=== PATIENT | female | born 1990 | race Caucasian/White ===

== ENCOUNTER 2019-11-15 09:00 | Outpatient (REF) | payer OTHER, SELFPAY ==
--- NOTE | 2019-11-15 | US_ITS ---
EXAMINATION: Echocardiography CLINICAL INFORMATION: 29-year-old at the 21.0 weeks of gestation Gestational diabetes diagnosed in first trimester COMPARISON: 11/01/2019 TECHNIQUE: Real-time transabdominal ultrasound was performed using C1-5 megahertz transducer. FINDINGS: There is a single, living, intrauterine in vertex position. The placenta lies transverse, left lateral. The amniotic fluid is within normal limits. MEASUREMENTS: 1. Biparietal Diameter: 5.1 cm; 21.5 wks 2. Occipital Frontal Diameter: 6.6 cm 3. Head Circumference: 19.0 cm; 21.2 wks 4. Abdominal Circumference: 16.2 cm; 21.2 wks 5. Femur Length: 3.4 cm; 20.4 wks 6. Heart Rate: 146 beats per minute GESTATIONAL AGE: 1. Assigned GA 21.0 wks 2. 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 Anomalous venous return ruled out. The four-chamber view showed equal sized ventricles and atria. The ventricular septum appeared intact and patent foramen ovale with right to left flow was seen. Tricuspid and mitral valves appear within normal limits as well as the pulmonary and aortic valves. The right outflow tract and in the left outflow tracts are of equal size and correct anatomic relationship. The myocardial contractility appeared within normal limits. No pericardial effusion is seen. IMPRESSION: 1. Normal, single, living, intrauterine with appropriate biometry. 2. Normal echocardiography. Discussion: I reviewed today's ultrasound findings and gave her reassurance. We discussed the limitations of ultrasound in diagnosing minor valvular problems, small VSD, ASD, and coarctation of aorta. After abnormal 1 hour glucose challenge (serum glucose greater than 200), she's been placed on GDM diet. Reports that that she is experiencing hypoglycemic episodes. Currently on no antihyperglycemic agents. I advised that she resume normal diet while monitoring her fingerstick glucose values. I reviewed the increased risk of congenital cardiac abnormalities, neural axis and kidneys in pregnancies with A1c above 6.5% around the time of the conception. Since she does not have a history of diabetes, I suspect the risk is not much higher than that of the general population. Unfortunately if her A1c level is not available. Suggest obtaining adequate hemoglobin A1c if not done already. Thank you for allowing me to participate in her care. Visiting time 25 minutes. Majority of this visit was spent reviewing and discussing her care.
== END 2019-11-15 09:01 | disposition home or self-care (01) ==
LOC: HO.US 09:00
PROVIDERS: PCP Internal Medicine; Visit Provider Obstetrics & Gynecology
DX: O24.410 Gestational diabetes mellitus in pregnancy, diet controlled (principal); Z3A.21 21 weeks gestation of pregnancy
CPT/HCPCS: 76825

== ENCOUNTER → 2019-11-18 08:15 | Outpatient (BNVA) | payer OTHER, SELFPAY | PROVIDERS: PCP Internal Medicine; Referring Provider Internal Medicine; Visit Provider Advanced Practice Midwife | DX: Z76.89 Persons encountering health services in other specified circumstances (principal) ==

== ENCOUNTER 2019-11-23 09:18 | Outpatient (REF) | payer OTHER, SELFPAY ==
[2019-11-23 11:39] LABS: Alanine Aminotransferase 9 U/L (0-31); Albumin Level 3.6 g/dL (3.5-5.0); Alkaline Phosphatase 49 U/L (39-117); Anion Gap 12 (12-20); Aspartate Amino Transferase 15 U/L (5-31); Bilirubin Total 1.2 mg/dL (0.0-1.0); Blood Urea Nitrogen 10 mg/dL (9-16); Calcium 8.4 mg/dL (8.4-10.2); Carbon Dioxide 24 mmol/L (22-29); Chloride 106 mmol/L (96-108); Estimated Glomerular Filt Rate > 60; Glucose Random 89 mg/dL (60-115); Potassium 3.9 mmol/l (3.3-5.1); Sodium 138 mmol/L (135-145); Total Protein 6.1 g/dL (6.5-8.0)
== END 2019-11-23 09:19 | disposition home or self-care (01) ==
LOC: HO.LAB 09:18
PROVIDERS: PCP Internal Medicine; Visit Provider Advanced Practice Midwife
DX: O26.899 Other specified pregnancy related conditions, unspecified trimester (principal); R51.9 Headache, unspecified
CPT/HCPCS: 80053

== ENCOUNTER 2019-12-02 13:09 | Outpatient (REF) | payer OTHER, SELFPAY ==
[2019-12-02 13:29] LABS: COVID-19 Test Negative (Negative)
== END 2019-12-02 13:10 | disposition home or self-care (01) ==
LOC: HO.LAB 13:09
PROVIDERS: PCP Internal Medicine; Visit Provider Internal Medicine
DX: Z20.828 Contact with and (suspected) exposure to other viral communicable diseases (principal)
CPT/HCPCS: 87635

== ENCOUNTER 2019-12-05 07:39 | Outpatient (REF) | payer OTHER, SELFPAY ==
[2019-12-05 08:28] LABS: COVID-19 Test Negative (Negative)
== END 2019-12-05 07:40 | disposition home or self-care (01) ==
LOC: HO.LAB 07:39
PROVIDERS: Visit Provider Internal Medicine
DX: Z20.828 Contact with and (suspected) exposure to other viral communicable diseases (principal)
CPT/HCPCS: 87635

== ENCOUNTER 2019-12-09 06:28 | Outpatient (REF) | payer OTHER, SELFPAY ==
[2019-12-09 07:24] LABS: COVID-19 Test Negative (Negative)
== END 2019-12-09 06:29 | disposition home or self-care (01) ==
LOC: HO.LAB 06:28
PROVIDERS: Visit Provider Internal Medicine
DX: Z20.828 Contact with and (suspected) exposure to other viral communicable diseases (principal)
CPT/HCPCS: 87635

== ENCOUNTER → 2019-12-16 15:28 | Outpatient (BNVA) | payer OTHER, SELFPAY | PROVIDERS: Visit Provider Advanced Practice Midwife | DX: Z76.89 Persons encountering health services in other specified circumstances (principal) ==

== ENCOUNTER → 2019-12-30 14:35 | Outpatient (BNVA) | payer OTHER, SELFPAY | PROVIDERS: Visit Provider Nurse Practitioner | DX: Z76.89 Persons encountering health services in other specified circumstances (principal) ==

== ENCOUNTER 2020-01-03 10:43 | Outpatient (REF) | payer OTHER, SELFPAY ==
[2020-01-03 11:44] LABS: Hematocrit 32.8 % (37-47); Hemoglobin 11.5 g/dl (12.0-16.0); Mean Corpuscular HGB Conc 35.1 g/dl (31.0-35.0); Mean Corpuscular Hemoglobin 31.9 pg (27.0-33.0); Mean Corpuscular Volume 91.1 fL (80-98); Mean Platelet Volume 10.4 fL (9.4-12.3); Platelet Count 158 X10*3/uL (160-400); Red Cell Distribution Width 13.2 % (11.0-16.0); White Blood Count 8.2 X10*3/uL (4.8-10.8)
[2020-01-03 12:01] LABS: Estimated Average Glucose 88 mg/dL; Hemoglobin A1c % 4.7 %
[2020-01-03 12:28] LABS: HIV AB/AG Nonreactive (Nonreactive)
[2020-01-03 12:35] LABS: Syphilis Screen Nonreactive (Nonreactive)
== END 2020-01-03 10:44 | disposition home or self-care (01) ==
LOC: HO.LAB 10:43
PROVIDERS: PCP Internal Medicine; Visit Provider Advanced Practice Midwife
DX: O24.419 Gestational diabetes mellitus in pregnancy, unspecified control (principal); Z34.92 Encounter for supervision of normal pregnancy, unspecified, second trimester
CPT/HCPCS: 36415; 83036; 85027; 86780; 86850; 87389

== ENCOUNTER → 2020-01-13 15:30 | Outpatient (BNVA) | payer OTHER, SELFPAY | PROVIDERS: PCP Internal Medicine; Visit Provider Advanced Practice Midwife | DX: Z76.89 Persons encountering health services in other specified circumstances (principal) ==

== ENCOUNTER 2020-01-16 08:41 | Outpatient (REF) | payer OTHER, SELFPAY ==
[2020-01-17 10:08] LABS: BV Int Neg Control Negative (Negative); BV Int Pos Control Positive (Positive)
== END 2020-01-16 08:42 | disposition home or self-care (01) ==
LOC: HO.LAB 08:41
PROVIDERS: Visit Provider Advanced Practice Midwife
DX: O26.899 Other specified pregnancy related conditions, unspecified trimester (principal); Z3A.29 29 weeks gestation of pregnancy; R10.2 Pelvic and perineal pain; R31.9 Hematuria, unspecified
CPT/HCPCS: 87086; 87480; 87510; 87660

== ENCOUNTER 2020-01-27 15:20 | Outpatient (REF) | payer OTHER, SELFPAY ==
[2020-01-27 18:17] LABS: Hematocrit 30.8 % (37-47); Hemoglobin 10.8 g/dl (12.0-16.0); Mean Corpuscular HGB Conc 35.1 g/dl (31.0-35.0); Mean Corpuscular Hemoglobin 31.3 pg (27.0-33.0); Mean Corpuscular Volume 89.3 fL (80-98); Mean Platelet Volume 10.8 fL (9.4-12.3); Platelet Count 196 X10*3/uL (160-400); Red Blood Count 3.45 X10*6/uL (4.20-5.50); Red Cell Distribution Width 13.2 % (11.0-16.0); White Blood Count 9.7 X10*3/uL (4.8-10.8)
[2020-01-27 18:18] LABS: Glucose Urine UA 100 MG/DL (NEG); Leukocyte Esterase Urine 1+ (NEG); Nitrite Urine NEG (NEG); Specific Gravity - Urine 1.015 (1.005-1.025); Urine Blood NEG (NEG); Urine Ketones 15 MG/DL (NEG); Urine Protein NEG (NEG-TRACE)
[2020-01-27 18:28] LABS: Appearance Urine HAZY; Bacteria Urine 2+ /LPF; Color Urine YELLOW; RBC Urine 0-2 /HPF (0); Squamous Epithelial Cell Urine 2+ /LPF
[2020-01-27 18:36] LABS: Alanine Aminotransferase 10 U/L (0-31); Aspartate Amino Transferase 16 U/L (5-31); Blood Urea Nitrogen 8 mg/dL (9-16)
[2020-01-27 19:57] LABS: Creatinine Urine 44.19 mg/dL; Total Protein Urine Random < 7 mg/dL (<12)
== END 2020-01-27 15:21 | disposition home or self-care (01) ==
LOC: HO.LAB 15:20
PROVIDERS: PCP Internal Medicine; Visit Provider Advanced Practice Midwife
DX: O21.9 Vomiting of pregnancy, unspecified (principal); Z34.80 Encounter for supervision of other normal pregnancy, unspecified trimester
CPT/HCPCS: 36415; 81001; 84156; 84450; 84460; 84520; 84550; 85027

== ENCOUNTER 2020-01-28 12:53 | Outpatient (REF) | payer OTHER, SELFPAY ==
[2020-01-28 13:14] LABS: COVID-19 Test Negative (Negative)
== END 2020-01-28 12:54 | disposition home or self-care (01) ==
LOC: HO.LAB 12:53
PROVIDERS: Visit Provider Internal Medicine
DX: Z20.828 Contact with and (suspected) exposure to other viral communicable diseases (principal)
CPT/HCPCS: 87635; C9803; U0003

== ENCOUNTER → 2020-02-10 15:46 | Outpatient (BNVA) | payer OTHER, SELFPAY | PROVIDERS: Visit Provider Obstetrics & Gynecology | DX: O09.93 Supervision of high risk pregnancy, unspecified, third trimester (principal); O24.419 Gestational diabetes mellitus in pregnancy, unspecified control | CPT/HCPCS: 81003; 99212 ==

== ENCOUNTER → 2020-02-24 15:44 | Outpatient (BNVA) | payer OTHER, SELFPAY | PROVIDERS: Visit Provider Advanced Practice Midwife | DX: Z34.80 Encounter for supervision of other normal pregnancy, unspecified trimester (principal) | CPT/HCPCS: 81003; 99212 ==

== ENCOUNTER 2020-02-28 08:29 | Outpatient (REF) | payer OTHER, SELFPAY ==
--- NOTE | 2020-02-28 08:34 | US_ITS ---
EXAMINATION: OBSTETRICAL ULTRASOUND, Follow up HISTORY: 29-year-old at the 36.0 weeks of gestation Size date discrepancy History of IUGR COMPARISON: 11/15/2019 TECHNIQUE: Real time transabdominal imaging with color and M-mode Doppler. PRESENTATION: Vertex PLACENTA LOCATION: Anterior without previa AMNIOTIC FLUID: BRAD 13.2 cm MEASUREMENTS: 1. Biparietal Diameter: 8.8 cm; 25.5 wks 2. Head Circumference: 32.1 cm; 36.2 wks 3. Abdominal Circumference: 32.6 cm; 36.4 wks 4. Femur Length: 6.7 cm; 34.4 wks 5. Heart Rate: 133 beats per minute WEIGHT: EFW: 2792 grams (6 lbs 2 oz) -- 48 %. BIOPHYSICAL PROFILE: Motion: 2 Tone: 2 Breathin Amniotic Fluid: 2 Total score: 8/8 GESTATIONAL AGE: 1. Established GA: 36.0 wks 2. GA from AUA: 35.6 wks ESTIMATED DATE OF DELIVERY: 1. Established LALI: 03/27/2020 2. LALI from AUA: 03/28/2020 US/US OB follow up IMPRESSION: 1. A single active fetus is in vertex presentation 2. Size equals dates 3. Reassuring biophysical profile I reassured her that the growth is appropriate and there is no suggestion of placental insufficiency or IUGR today's exam. We briefly discussed the limitations of ultrasound and estimating weights. Thank you very much for this referral.
== END 2020-02-28 08:30 | disposition home or self-care (01) ==
LOC: HO.US 08:29
PROVIDERS: Visit Provider Obstetrics & Gynecology
DX: O26.843 Uterine size-date discrepancy, third trimester (principal); Z3A.36 36 weeks gestation of pregnancy
CPT/HCPCS: 76816

== ENCOUNTER 2020-03-05 15:43 | Outpatient (REF) | payer OTHER, SELFPAY ==
[2020-03-07 13:26] LABS: C. trachomatis RNA TMA NOT DETECTED (NOT DETECTED); N. gonorrhoeae RNA TMA NOT DETECTED (NOT DETECTED)
== END 2020-03-05 15:44 | disposition home or self-care (01) ==
LOC: HO.LAB 15:43
PROVIDERS: Visit Provider Advanced Practice Midwife
DX: O09.893 Supervision of other high risk pregnancies, third trimester (principal); O99.613 Diseases of the digestive system complicating pregnancy, third trimester; K21.9 Gastro-esophageal reflux disease without esophagitis
CPT/HCPCS: 36415; 81003; 87081; 87491; 87591; 99212

== ENCOUNTER → 2020-03-06 13:38 | Outpatient (BNVA) | payer OTHER, SELFPAY | PROVIDERS: Visit Provider Obstetrics & Gynecology | DX: O26.899 Other specified pregnancy related conditions, unspecified trimester (principal); Z67.91 Unspecified blood type, Rh negative | CPT/HCPCS: 96372 ==

== ENCOUNTER → 2020-03-12 08:32 | Outpatient (BNVA) | payer OTHER, SELFPAY | PROVIDERS: Visit Provider Advanced Practice Midwife | DX: O26.899 Other specified pregnancy related conditions, unspecified trimester (principal); Z67.91 Unspecified blood type, Rh negative | CPT/HCPCS: 81003; 99212 ==

== ENCOUNTER → 2020-03-19 08:38 | Outpatient (BNVA) | payer OTHER, SELFPAY | PROVIDERS: Visit Provider Advanced Practice Midwife | DX: O24.410 Gestational diabetes mellitus in pregnancy, diet controlled (principal); O99.343 Other mental disorders complicating pregnancy, third trimester; F41.9 Anxiety disorder, unspecified; Z3A.38 38 weeks gestation of pregnancy; Z79.899 Other long term (current) drug therapy | CPT/HCPCS: 59025; 81003; 99212 ==

== ENCOUNTER 2020-03-19 10:21 | Outpatient (REF) | payer OTHER, SELFPAY ==
--- NOTE | ~2020-03-19 | US_ITS ---
EXAMINATION: US OBSTETRICAL FOLLOW UP WITH BIOPHYSICAL PROFILE CLINICAL INFORMATION: On reactive stress test. COMPARISON: Ultrasound OB 02/28/2020. TECHNIQUE: Real time transabdominal imaging with color and M-mode Doppler. POSITION: Cephalic. PLACENTA: Anterior, grade 2. AMNIOTIC FLUID INDEX: 11.82 cm. MEASUREMENTS: The initial dating ultrasound dated provided an estimated date of delivery of 03/27/2020. Base on today's ultrasound the LALI is 04/01/2020. biometric measurements are as follows: Biparietal Diameter: 9.14 cm (37 weeks 1 day) Occipital Frontal Diameter: 11.44 cm (39 weeks 3 days) Head Circumference: 33.86 cm (39 weeks and 0 days) Abdominal Circumference: 35.23 cm (39 weeks and 1 days) Femur Length: 7.24 cm (37 weeks and 1 days) The ultrasound gestational age based on today's measurements is 38 weeks 1 day. The standard deviation for the above measurements is +/- 3 weeks. ESTIMATED WEIGHT: The EFW is 3481 grams /(7 lbs 11 oz. This is at the 57 percentile. BIOPHYSICAL PROFILE: Biophysical profile is performed over 30 minutes with assessment of breathing, gross body movement, tone, and qualitative amniotic fluid volume. Each matrix is scored 0 or 2, depending if the metric is present. Maximum total score possible is 8. Motion: 2 Tone: 2 Breathin Amniotic Fluid: 2 Total score: 8 HR: 126 bpm US/US OB follow up IMPRESSION: 1. Single intrauterine gestation in cephalic position with anterior grade 2 placenta. 2. EFW: 3481 gm 3. BRAD: 11.82 cm. 4. BPP score: 8/8 (scale 0-8).
== END 2020-03-19 10:22 | disposition home or self-care (01) ==
LOC: HO.US 10:21
PROVIDERS: Visit Provider Advanced Practice Midwife
DX: O36.5990 Maternal care for other known or suspected poor fetal growth, unspecified trimester, not applicable or unspecified (principal)
CPT/HCPCS: 76816

== ENCOUNTER → 2020-03-20 10:25 | Outpatient (BNVA) | payer OTHER, SELFPAY | PROVIDERS: Visit Provider Advanced Practice Midwife | DX: Z34.80 Encounter for supervision of other normal pregnancy, unspecified trimester (principal) | CPT/HCPCS: 99212 ==

== ENCOUNTER → 2020-03-24 10:34 | Outpatient (BNVA) | payer OTHER, SELFPAY | PROVIDERS: Visit Provider Advanced Practice Midwife | DX: O47.9 False labor, unspecified (principal) | CPT/HCPCS: 99212 ==

== ENCOUNTER → 2020-03-25 13:26 | Outpatient (BNVA) | payer OTHER, SELFPAY | PROVIDERS: Visit Provider Advanced Practice Midwife | DX: O36.8390 Maternal care for abnormalities of the fetal heart rate or rhythm, unspecified trimester, not applicable or unspecified (principal); O36.8130 Decreased fetal movements, third trimester, not applicable or unspecified | CPT/HCPCS: 59025; 81003; 99212 ==

== ENCOUNTER 2020-03-25 14:52 | Outpatient (REF) | payer OTHER, SELFPAY ==
--- NOTE | ~2020-03-25 | US_ITS ---
EXAMINATION: US OBSTETRICAL (BIOPHYSICAL PROFILE) CLINICAL INFORMATION: Maternal care 4 abnormalities of heart. Evaluate growth COMPARISON: Ultrasound OB to 06/02/2020 TECHNIQUE: Ultrasound of the pelvis is performed. Biophysical profile is performed over 30 minutes with assessment of breathing, gross body movement, tone, and qualitative amniotic fluid volume. Each matrix is scored 0 or 2, depending if the metric is present. Maximum total score possible is 8. Examination is not intended to assess for anomalies. FINDINGS: POSITION: Cephalic PLACENTA: Anterior, grade 2 AMNIOTIC FLUID INDEX: 18.3 cm CARDIAC ACTIVITY: 136 beats per minute BIOPHYSICAL PROFILE: Motion: 2 Tone: 2 Breathin Amniotic Fluid: 2 Total score: 18.3 US/US OB biophysical profile IMPRESSION: 1. Single intrauterine gestation in cephalic position with anterior placenta. 2. Total biophysical score is 8 (scale 0-8). 3. Amniotic fluid index 18.3 cm. 4. cardiac activity 136 beats per minute.
== END 2020-03-25 14:53 | disposition home or self-care (01) ==
LOC: HO.US 14:52
PROVIDERS: PCP Internal Medicine; Visit Provider Advanced Practice Midwife
DX: O36.8190 Decreased fetal movements, unspecified trimester, not applicable or unspecified (principal); O36.8390 Maternal care for abnormalities of the fetal heart rate or rhythm, unspecified trimester, not applicable or unspecified
CPT/HCPCS: 76819

== ENCOUNTER 2020-04-12 17:17 | Emergency (ER) | payer OTHER, SELFPAY ==
--- NOTE | ~2020-04-12 | CT_ITS ---
EXAMINATION: CT ANGIOGRAM OF THE CHEST WITH AND WITHOUT CONTRAST (CT PULMONARY ANGIOGRAM FOR PE) CLINICAL INFORMATION: Shortness of breath. 2 weeks . COMPARISON: Chest x-ray 05/06/2019 TECHNIQUE: Prior to contrast administration, noncontrast localization images were obtained. Subsequently, multidetector volumetric imaging was performed from the thoracic inlet to below the diaphragms following the administration of 57 mL Omnipaque 350 intravenous contrast. No contrast reaction reported Sagittal, coronal, and MIP oblique sagittal reformatted images were obtained on the CT workstation, uploaded to PACS, and reviewed. The examination is mildly limited secondary to respiratory motion artifact. 1 mm subpleural nodule the right upper lobe (image [id number], series 6). This CT examination was performed using dose optimization techniques as appropriate, variously including the following: *Automated exposure control *Adjustment of mA and/or kV according to patient size (this includes techniques or standardized protocols for targeted exams where dose is matched to indication/reason for exam; i.e. extremities or head) *Use of iterative reconstruction technique Total exam dose-length product 206 mGy-cm FINDINGS: The heart is normal in size. There is no pericardial effusion. No pulmonary arterial filling defect to suggest pulmonary embolus. Nonaneurysmal thoracic aorta. No gross mediastinal lymphadenopathy. Central airways are patent. Lungs are well aerated. Mild dependent atelectasis. No lobar consolidation, pleural effusion or pneumothorax. Visualized portion of the upper abdomen are grossly unremarkable. No acute osseous abnormality. CT/CT angio chest PE protocol IMPRESSION: No pulmonary arterial filling defect to suggest pulmonary embolus. VTE: negative
[2020-04-12 17:21] VITALS: BP 139/88; PULSE 100; RESP 16; TEMP 36.5; O2SAT 98; BMI 24.7
[2020-04-12 17:40] VITALS: BP 119/74; PULSE 75; RESP 21; O2SAT 97
--- NOTE | 2020-04-12 17:54 | ECG_ITS ---
Test Reason : DIZZINESS Blood Pressure : / mmHG Vent. Rate : 074 BPM Atrial Rate : 074 BPM P-R Int : 146 ms QRS Dur : 090 ms QT Int : 366 ms P-R-T Axes : 071 022 023 degrees QTc Int : 406 ms Normal sinus rhythm with sinus arrhythmia Possible Left atrial enlargement Low voltage QRS Borderline ECG When compared with ECG of 06-MAY-2019 14:48, No significant change was found Referred By: Ralph An Electronically Signed By:CODIE DAVEY
--- NOTE | 2020-04-12 17:56 | ED_ITS ---
HPI - SOB/Dyspnea General Chief Complaint: Dizziness Stated Complaint: Dizziness Time Seen by Provider: 04/12/20 17:51 Source: patient Mode of arrival: ambulatory Limitations: no limitations History of Present Illness HPI Narrative: Patient full-term vaginal delivery on 03/25 was doing normal till last 3- 4 days when she started noticing increased shortness of breath no chest pain no cough no fever no 3rd to COVID patient feel weak and short of breath on mild exertion patient also did complaining of pain in the right arm MD elicited complaint: shortness of breath Onset (ago): day(s) (3-4) Related Data Home Medications Medication Instructions Recorded Confirmed albuterol sulfate 90 mcg/actuation INHALATION 11/18/19 11/18/19 aerosol inhaler blood sugar diagnostic #10 ea 11/18/19 11/18/19 blood-glucose meter #1 ea 11/18/19 11/18/19 fluoxetine 10 mg capsule 10 mg PO DAILY 11/18/19 11/18/19 lancets 28 gauge #100 ea 11/18/19 11/18/19 vitamin with calcium 1 tab PO DAILY 11/18/19 11/18/19 no.72-iron 27 mg-folic acid 1 mg tablet Previous Rx's Medication Instructions Recorded famotidine 20 mg tablet 20 mg PO BID #90 tab 12/30/19 Allergies Allergy/AdvReac Type Severity Reaction Status Date / Time No Known Allergies Allergy Verified 03/25/20 13:54 Review of Systems Review of Systems: Constitutional : No Weight loss, No Fever, No Chills ENT/Mouth : No sore throat, No Rhinorrhea Eyes: No Eye Pain, No Swelling Cardiovascular : No Chest Pain, no palpitations Respiratory : No Cough, No Sputum, + shortness of breath Gastrointestinal : no Nausea, No Vomiting, No Diarrhea, No abdominal Pain, no black stools Genitourinary : No Dysuria, No Urinary Frequency Musculoskeletal : No joint pain, No Myalgias, No Joint Swelling Skin : No Skin Lesions, No rash Neuro : No Weakness, No Numbness, + Dizziness, No Headache Psych : + Anxiety, No Depression Heme/Lymph: No Bruising, No Lymphadenopathy Endocrine : No Polyuria, No Polydipsia All other systems reviewed and are negative PMFSH Past Medical History Medical History Anxiety Asthma History of gestational diabetes Threatened labor at term Surgical History History of incision and drainage Hx of dilation and curettage Hx of wisdom tooth extraction Family History Family History Father Family hx-stroke History of esophageal cancer Mother Anxiety Maternal Grandmother Hx of congestive heart failure Hx of diabetes mellitus Maternal Grandfather Colon cancer Hx of diabetes mellitus Paternal Grandfather Cancer Social History Social History Household Members: Spouse and Children Alcohol intake: never Smoking Status: Never smoker Advance Directives: No Advance Directives Information Provided: Yes Gender identity: female Physical Exam Vital Signs: Vital Signs: Last Vital Signs Temp 97.7 F 04/12/20 17:21 Pulse 90 04/12/20 19:48 Resp 18 04/12/20 19:48 BP 134/91 H 04/12/20 19:48 Pulse Ox 97 04/12/20 19:48 Body Mass Index 24.7 Appearance: Alert. Oriented X3. No acute distress. Eyes: Pupils equal, round and reactive to light. ENT: Pharynx normal. Neck: Normal inspection. Neck supple. CVS: Normal heart rate and rhythm. Pulses normal. Respiratory: No respiratory distress. Breath sounds normal. Abdomen: Soft and nontender. Bowel sounds are present, no mass palpable, no CVA tenderness Skin: Skin warm and dry. Normal skin color. Normal skin turgor. Extremities: No lower extremity edema. No calf tenderness Neuro: Oriented X 3. No motor deficit. No sensory deficit. MDM - SOB/Dyspnea MDM Narrative Medical decision making narrative: Patient with shortness of breath clinically likely anxiety but will do CTA to rule out PE Patient's CTA is negative for PE patient is saturating 98% at room air will discharge patient home with diagnosis of anxiety Differential Diagnosis Differential diagnosis: Likely pulmonary embolism Medical Records Attestation: I reviewed the patient's medical records. Lab Data Attestation: I reviewed the patient's lab results. Result diagrams: 04/12/20 18:27 04/12/20 18:27 Labs: Lab Results 04/12/20 04/12/20 04/12/20 Range/Units 18:27 18:27 18:27 WBC 6.7 (4.8-10.8) X10*3/uL RBC 4.16 L D (4.20-5.50) X10*6/uL Hgb 12.2 (12.0-16.0) g/dl Hct 36.5 L (37-47) % MCV 87.7 (80-98) fL MCH 29.3 (27.0-33.0) pg MCHC 33.4 (31.0-35.0) g/dl RDW 13.3 (11.0-16.0) % Plt Count 265 D (160-400) X10*3/uL MPV 9.8 (9.4-12.3) fL Immature Gran % (Auto) 0.1 (0.0-0.4) % Neut % (Auto) 68.0 (45-73) % Lymph % (Auto) 23.6 (20-40) % Roosevelt % (Auto) 5.5 (2-11) % Eos % (Auto) 2.4 (0-4) % Baso % (Auto) 0.4 (0-2) % Lymph # (Auto) 1.6 (1.2-4.9) X10*3/uL Roosevelt # (Auto) 0.4 (0.1-1.2) X10*3/uL Eos # (Auto) 0.2 (0.0-0.4) X10*3/uL Baso # (Auto) 0.0 (0.0-0.2) X10*3/uL Abs Immat Gran (auto) 0.01 (0.00-0.03) X10*3/uL Absolute Neuts (auto) 4.6 (2.0-8.3) X10*3/uL Absolute Nucleated RBC 0.000 (0.0-0.012) X10*3/uL Nucleated RBC % (auto) 0.0 (0.0-0.2) /100WBC PT 11.5 (10.8-13.0) SEC INR 1.0 (0.9-1.1) Sodium 139 (135-145) mmol/L Potassium 3.9 (3.3-5.1) mmol/L Chloride 107 (96-108) mmol/L Carbon Dioxide 24 (22-29) mmol/L Anion Gap 12 (12-20) BUN 13 D (9-16) mg/dL Creatinine 0.75 (0.5-1.4) mg/dL Estim Creat Clear Calc 101.1 Estimated GFR > 60 Random Glucose 96 (60-115) mg/dL Calcium 8.9 (8.4-10.2) mg/dL COVID-19 ([facility]) (Negative) COVID-19 Clin Com 04/12/20 Range/Units 18:27 WBC (4.8-10.8) X10*3/uL RBC (4.20-5.50) X10*6/uL Hgb (12.0-16.0) g/dl Hct (37-47) % MCV (80-98) fL MCH (27.0-33.0) pg MCHC (31.0-35.0) g/dl RDW (11.0-16.0) % Plt Count (160-400) X10*3/uL MPV (9.4-12.3) fL Immature Gran % (Auto) (0.0-0.4) % Neut % (Auto) (45-73) % Lymph % (Auto) (20-40) % Roosevelt % (Auto) (2-11) % Eos % (Auto) (0-4) % Baso % (Auto) (0-2) % Lymph # (Auto) (1.2-4.9) X10*3/uL Roosevelt # (Auto) (0.1-1.2) X10*3/uL Eos # (Auto) (0.0-0.4) X10*3/uL Baso # (Auto) (0.0-0.2) X10*3/uL Abs Immat Gran (auto) (0.00-0.03) X10*3/uL Absolute Neuts (auto) (2.0-8.3) X10*3/uL Absolute Nucleated RBC (0.0-0.012) X10*3/uL Nucleated RBC % (auto) (0.0-0.2) /100WBC PT (10.8-13.0) SEC INR (0.9-1.1) Sodium (135-145) mmol/L Potassium (3.3-5.1) mmol/L Chloride (96-108) mmol/L Carbon Dioxide (22-29) mmol/L Anion Gap (12-20) BUN (9-16) mg/dL Creatinine (0.5-1.4) mg/dL Estim Creat Clear Calc Estimated GFR Random Glucose (60-115) mg/dL Calcium (8.4-10.2) mg/dL COVID-19 ([facility]) Negative (Negative) COVID-19 Clin Com See Note ECG Data Attestation: I personally reviewed and interpreted this ECG as follows: Interpretation: Normal sinus rhythm heart rate 74 beats per minute low-voltage QRS normal intervals normal axis no acute ST T wave changes no acute ischemia Discharge Plan Discharge Prescriptions: No Action famotidine [Pepcid] 20 mg tablet 20 mg PO BID Qty: 90 RF: 2 (DME) lancets 28 gauge misc See Rx Instructions ea topical QID Qty: 100 RF: 0 (DME) FreeStyle Lite Strips Strip See Rx Instructions ea Not Applicable QID Qty: 10 RF: 0 fluoxetine 10 mg capsule 10 mg PO DAILY RF: 0 (DME) blood-glucose meter Kit See Rx Instructions kit .ROUTE .MEDSUPPLY Qty: 1 RF: 0 albuterol sulfate 90 mcg/actuation HFA aerosol inhaler inhalation RF: 0 Plus (calcium carb) 27 mg iron- 1 mg tablet 1 tab PO DAILY RF: 0
[2020-04-12 18:32] LABS: MANUAL DIFF FLAG NO
[2020-04-12 18:38] LABS: Basophils Percent Auto 0.4 % (0-2); Eosinophils Absolute Auto 0.2 X10*3/uL (0.0-0.4); Eosinophils Percent Auto 2.4 % (0-4); Hematocrit 36.5 % (37-47); Hemoglobin 12.2 g/dl (12.0-16.0); Imm Gran Abs Auto 0.01 X10*3/uL (0.00-0.03); Imm Gran Pct Auto 0.1 % (0.0-0.4); Lymphocytes Absolute Auto 1.6 X10*3/uL (1.2-4.9); Lymphocytes Percent Auto 23.6 % (20-40); Mean Corpuscular HGB Conc 33.4 g/dl (31.0-35.0); Mean Corpuscular Hemoglobin 29.3 pg (27.0-33.0); Mean Corpuscular Volume 87.7 fL (80-98); Mean Platelet Volume 9.8 fL (9.4-12.3); Monocytes Absolute Auto 0.4 X10*3/uL (0.1-1.2); Monocytes Percent Auto 5.5 % (2-11); Neutrophils Absolute Auto 4.6 X10*3/uL (2.0-8.3); Platelet Count 265 X10*3/uL (160-400); Red Blood Count 4.16 X10*6/uL (4.20-5.50); Red Cell Distribution Width 13.3 % (11.0-16.0); White Blood Count 6.7 X10*3/uL (4.8-10.8)
[2020-04-12 18:47] LABS: Prothrombin Time 11.5 SEC (10.8-13.0)
[2020-04-12 18:57] LABS: Anion Gap 12 (12-20); Blood Urea Nitrogen 13 mg/dL (9-16); Calcium 8.9 mg/dL (8.4-10.2); Carbon Dioxide 24 mmol/L (22-29); Chloride 107 mmol/L (96-108); Creatinine Clr Calc Pharmacy 101.1; Estimated Glomerular Filt Rate > 60; Glucose Random 96 mg/dL (60-115); Potassium 3.9 mmol/L (3.3-5.1); Sodium 139 mmol/L (135-145)
[2020-04-12 19:32] LABS: COVID-19 Test Negative (Negative); IDNOW Serial# 9DD0AD1C
[2020-04-12] MEDS: iohexoL 350 MG/ML 100 ML INFUS..BTL IV (19:43)
[2020-04-12 19:48] VITALS: BP 134/91; PULSE 90; RESP 18; O2SAT 97
== END 2020-04-12 20:47 | disposition home or self-care (01) ==
PROVIDERS: Emergency Provider Internal Medicine; PCP Internal Medicine
DX: R42 Dizziness and giddiness (principal); R06.02 Shortness of breath; Z20.822 Contact with and (suspected) exposure to COVID-19; Z79.899 Other long term (current) drug therapy
CPT/HCPCS: 36415; 71275; 80048; 85025; 85610; 87635; 93005; 99284; Q9967

== ENCOUNTER 2020-05-06 14:25 | Outpatient (REF) | payer OTHER, SELFPAY ==
[2020-05-07 09:34] LABS: CT PCR NOT DETECTED (Not Detect.); NG PCR NOT DETECTED (Not Detect.)
== END 2020-05-06 14:26 | disposition home or self-care (01) ==
LOC: HO.LAB 14:25
PROVIDERS: PCP Internal Medicine; Visit Provider Advanced Practice Midwife
DX: O24.439 Gestational diabetes mellitus in the puerperium, unspecified control (principal); Z30.09 Encounter for other general counseling and advice on contraception; Z20.2 Contact with and (suspected) exposure to infections with a predominantly sexual mode of transmission
CPT/HCPCS: 87491; 87591

== ENCOUNTER → 2020-05-19 15:00 | Outpatient (BNVA) | payer OTHER, SELFPAY | PROVIDERS: PCP Internal Medicine; Visit Provider Nurse Practitioner ==

== ENCOUNTER → 2020-06-04 10:28 | Outpatient (BNVA) | payer OTHER, SELFPAY | PROVIDERS: PCP Internal Medicine; Visit Provider Nurse Practitioner ==

== ENCOUNTER → 2020-06-08 13:56 | Outpatient (BNVA) | payer OTHER, SELFPAY | PROVIDERS: PCP Internal Medicine; Visit Provider Obstetrics & Gynecology | DX: Z30.430 Encounter for insertion of intrauterine contraceptive device (principal) | CPT/HCPCS: 58300 ==

== ENCOUNTER 2020-07-09 13:14 | Emergency (ER) | payer OTHER, SELFPAY ==
--- NOTE | ~2020-07-09 | MR_ITS ---
MRI OF THE BRAIN WITHOUT IV CONTRAST INDICATION: Blurry vision and heaviness of the left side. COMPARISON: None available. TECHNIQUE: Multiplanar multisequence MR imaging of the brain was obtained without IV contrast. FINDINGS: There is no hydrocephalus, extra-axial surface collection, or herniation. No parenchymal signal abnormality. The major flow voids at the skull base are preserved. There is no acute infarct on diffusion-weighted imaging. There is no intracranial hemorrhage on the gradient recalled echo acquisition. The midline structures are normal. 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 The cerebellum and brainstem are normal. The craniocervical junction is normal. Osseous marrow signal intensity is homogenous. The visualized soft tissues are unremarkable. Small retention cysts within the inferior aspect of the left maxillary sinus. MR/MR head/brain wo con IMPRESSION: Unremarkable noncontrast MRI of the brain.
--- NOTE | ~2020-07-09 | CT_ITS ---
EXAMINATION: CT HEAD WITHOUT CONTRAST CLINICAL INFORMATION: Visual change with weakness COMPARISON: None TECHNIQUE: Contiguous axial imaging was performed from the skull base to vertex without intravenous administration of contrast. This CT examination was performed using dose optimization techniques as appropriate, variously including the following: *Automated exposure control *Adjustment of mA and/or kV according to patient size (this includes techniques or standardized protocols for targeted exams where dose is matched to indication/reason for exam; i.e. extremities or head) *Use of iterative reconstruction technique DLP: 614 mGy-cm FINDINGS: There is no evidence of acute intracranial hemorrhage or territorial infarction. No abnormal mass effect or midline shift is seen. Richardson to white matter differentiation is well preserved. No extra-axial fluid collections are identified. The ventricles are normal in size. There is no abnormal attenuation within the brain parenchyma. The osseous structures and soft tissues are normal. The mastoid air cells and visualized portions of the paranasal sinuses are well aerated. CT/CT head/brain wo con IMPRESSION: No acute intracranial pathology.
[2020-07-09 13:21] VITALS: BP 125/72; PULSE 99; RESP 18; O2SAT 97; BMI 23.9
--- NOTE | 2020-07-09 13:50 | ECG_ITS ---
Test Reason : DIZZINESS Blood Pressure : / mmHG Vent. Rate : 090 BPM Atrial Rate : 090 BPM P-R Int : 152 ms QRS Dur : 088 ms QT Int : 352 ms P-R-T Axes : 070 049 030 degrees QTc Int : 430 ms Normal sinus rhythm with sinus arrhythmia Normal ECG When compared with ECG of 12-APR-2020 17:36, No significant change was found Referred By: Charlotte Ladd Electronically Signed By:CODIE DAVEY
--- NOTE | 2020-07-09 13:57 | ED.GENADULT ---
HPI - General Adult General Chief complaint: General Medical Stated complaint: Dizziness Time Seen by Provider: 07/09/20 13:21 Source: patient Mode of arrival: ambulatory Limitations: no limitations History of Present Illness HPI narrative: 29-year-old female with a past medical history of anxiety here with episode of blurry vision which occurred at 07:00 this morning and lasted approximately 15 minutes and self-resolved. She felt no associated headache, weakness, numbness, tingling with this episode. She then went to work and had an episode where she felt very lightheaded and dizzy with some head pressure. She tells me she checked her blood pressure and she noted to be 140 systolic which is high for her. She also noted her pulse to be in the 120s which is also high for her. She then came to the emergency room to be evaluated. On arrival the patient tells me she feels like her left side of her body is heavy but denies any associated weakness, slurred speech, headache, visual changes, lightheadedness. Related Data Home Medications Medication Instructions Recorded Confirmed albuterol sulfate 90 mcg/actuation INHALATION 11/18/19 11/18/19 aerosol inhaler blood sugar diagnostic #10 ea 11/18/19 11/18/19 blood-glucose meter #1 ea 11/18/19 11/18/19 lancets 28 gauge #100 ea 11/18/19 11/18/19 vitamin with calcium 1 tab PO DAILY 11/18/19 11/18/19 no.72-iron 27 mg-folic acid 1 mg tablet Previous Rx's Medication Instructions Recorded famotidine 20 mg tablet 20 mg PO BID #90 tab 12/30/19 hydrocortisone 2.5 % topical cream 1 appl MS BID #30 g 05/19/20 with perineal applicator fluoxetine 10 mg capsule 10 mg PO DAILY 90 Days #90 cap 06/18/20 Allergies Allergy/AdvReac Type Severity Reaction Status Date / Time No Known Allergies Allergy Verified 06/04/20 10:29 Review of Systems Review of Systems: Yes all other systems are reviewed and are negative Constitutional: Constitutional: Reports no additional constitutional complaints, Denies body ache(s), Denies chills, Denies fever(s), Reports headache(s) (head pressure ) and Denies weakness Eyes: Eyes: Reports no additional eye complaints, Reports blurry vision and Denies change in vision ENT: Reports system reviewed and no additional complaints, except as documented, Reports dizziness, Reports headache(s) (head pressure ), Denies nasal congestion, Denies nasal discharge and Denies neck pain Cardiovascular: Cardiovascular: Reports no additional cardiovascular complaints, Denies chest pain, Denies leg edema and Denies dyspnea Respiratory: Respiratory: Reports no additional respiratory complaints, Denies cough and Denies dyspnea Gastrointestinal: Gastrointestinal: Reports no additional gastrointestinal complaints, Denies abdominal pain, Denies diarrhea, Denies nausea and Denies vomiting Genitourinary: Genitourinary: Reports no additional female genitourinary complaints and Denies urinary incontinence Musculoskeletal: Musculoskeletal: Reports no additional musculoskeletal complaints, Denies back pain, Denies arthralgias, Denies joint swelling, Denies neck pain, Denies numbness and Denies tingling Integumentary/Breasts: Skin/Breast: Reports system reviewed and no additional complaints, except as docu and Denies rash Neurologic: Reports system reviewed and no additional complaints, except as documented, Denies Abnormal speech present, Reports dizziness, Reports headache(s) (head pressure ), Denies numbness, Denies tingling and Denies weakness [facility] Past Medical History Attestation statement: The following information was validated with the patient. Source: old records reviewed and nursing notes reviewed Medical History Anxiety Asthma History of gestational diabetes Lactating mother Threatened labor at term Surgical History History of incision and drainage Hx of dilation and curettage Hx of wisdom tooth extraction Family History Family History Father Family hx-stroke History of esophageal cancer Mother Anxiety Maternal Grandmother Hx of congestive heart failure Hx of diabetes mellitus Maternal Grandfather Colon cancer Hx of diabetes mellitus Paternal Grandfather Cancer Social History Social History Household Members: Spouse and Children Alcohol intake: never Advance Directives: No Advance Directives Information Provided: No Patient : No Gender identity: female Physical Exam Vital Signs: Vital Signs: Last Vital Signs Pulse 99 05/27/21 13:21 Resp 18 07/09/20 13:21 BP 125/72 07/09/20 13:21 Pulse Ox 97 07/09/20 13:21 Body Mass Index 23.9 Const: General: cooperative, healthy appearing, comfortable and no acute distress Orientation/consciousness: patient oriented x3 Limitations: no limitations HENMT: Head: Yes normal to inspection Ears: hearing grossly normal bilaterally and TM's normal bilaterally General nose exam: Normal external nose present Face and sinus: Yes normal facial exam Mouth: Normal oral and palatal mucosa present Throat: Yes posterior oropharynx normal and Yes tonsils normal Eyes: Other: IOP right 19, IOP left 15 General: appearance normal, both eyes and all related structures Visual Rhodes: normal visual rhodes by confrontation Alignment and Position: alignment normal Periorbital: periorbital findings normal Eyelids: Yes eyelids normal Conjunctivae: conjunctivae normal Sclerae: sclerae normal Corneas: corneas normal Pupils: Equal, round and reactive pupils present EOM: EOMs intact bilaterally Direct Ophthalmoscopy: normal light reflex and no photophobia Neck: Neck: Yes normal visual inspection and Yes full ROM Chest: Chest palpation & inspection: normal inspection of the chest Resp: Effort & Inspection: normal respiratory effort Auscultation: clear to auscultation bilaterally Cardio: Rate: regular rate Rhythm: regular rhythm Peripheral pulses: Peripheral pulses 2+ throughout GI: Inspection: Yes normal to inspection Palpation (GI): Soft to palpation and nontender Auscultation: normal bowel sounds Back/Spine/Pelvis: Thoracic/Lumbar Spine: thoracic and lumbar spine normal to inspection Skin: General skin exam: no rashes or lesions noted Neuro: General: patient oriented x3, no focal motor deficits and normal sensation to monofilament Cranial nerves: Yes CN's II-XII intact bilaterally, Yes Equal, round and reactive pupils present, Yes Bilaterally intact EOM present, Yes Nystagmus not present, Yes Normal facial strength present and Yes Midline tongue present Cognition (Neuro): normal cognition Speech: No Abnormal speech present Gait exam (Neuro): Normal gait present Motor exam (neuro): 5/5 motor strength present throughout Sensory Exam: Normal double simultaneous stimulation for sensation Coordination: [id number] test normal and ykma-ic-gned test normal Extrem: General: Yes normal to inspection, Yes no pedal edema and Yes no calf tenderness NIH Stroke Scale Internal: Initial- Upon Arrival Level of Consciousness: Alert Level of Consciousness Questions: Answers both questions correctly Level of Consciousness Commands: Performs both tasks correctly Best Gaze: Normal Visual: No visual loss Facial Palsy: Normal Motor Arm (Right): No drift Motor Arm (Left): No drift Motor Leg (Right): No drift Motor Leg (Left): No drift Limb Ataxia: Absent Sensory: Normal Best Language: No aphasia Dysarthia: Normal Extinction and Inattention: No abnormality Score: 0 Course Course Course Narrative: 29-year-old female here status post episode of blurred vision which self resolved and then later an episode of dizziness described as lightheadedness with associated hypertension and tachycardia. Now complaining of feeling with the left side of her body is heavy but denies any weakness or paraesthesias or vision changes. Normal neurological exam. No overt deficits. Will check labs, UA, EKG, orthostatics and MRI brain. 1900-Labs unremarkable. Orthostatics mildly positive. Imaging negative. Re-assessed patient with no neurological changes or deficits noted. Normotensive and heart rate within normal limits. We discussed may be anxiety related as patient has history of same and we discussed how it can be difficult to determine anxiety symptoms from underlying medical issues. Recommended following up with PCP. Reviewed worrisome signs/symptoms with patient and when to return to ED. comfortable with discharge home. Medical Decision Making MDM Narrative Medical decision making narrative: Electrolyte abnormality, orthostatic hypotension, migraine, TIA Medical Records Medical records reviewed: Yes I reviewed the patient's medical records. Lab Data Lab results reviewed: Yes I reviewed the patient's lab results. Result diagrams: 07/09/20 14:11 07/09/20 14:11 Labs: Lab Results 07/09/20 07/09/20 07/09/20 Range/Units 14:11 14:11 14:11 WBC 6.1 (4.8-10.8) X10*3/uL RBC 4.69 (4.20-5.50) X10*6/uL Hgb 13.5 (12.0-16.0) g/dl Hct 39.6 (37-47) % MCV 84.4 (80-98) fL MCH 28.8 (27.0-33.0) pg MCHC 34.1 (31.0-35.0) g/dl RDW 13.5 (11.0-16.0) % Plt Count 229 (160-400) X10*3/uL MPV 10.1 (9.4-12.3) fL Immature Gran % (Auto) 0.2 (0.0-0.4) % Neut % (Auto) 67.1 (45-73) % Lymph % (Auto) 23.6 (20-40) % Grand % (Auto) 7.4 (2-11) % Eos % (Auto) 1.2 (0-4) % Baso % (Auto) 0.5 (0-2) % Lymph # (Auto) 1.4 (1.2-4.9) X10*3/uL Grand # (Auto) 0.5 (0.1-1.2) X10*3/uL Eos # (Auto) 0.1 (0.0-0.4) X10*3/uL Baso # (Auto) 0.0 (0.0-0.2) X10*3/uL Abs Immat Gran (auto) 0.01 (0.00-0.03) X10*3/uL Absolute Neuts (auto) 4.1 (2.0-8.3) X10*3/uL Absolute Nucleated RBC 0.000 (0.0-0.012) X10*3/uL Nucleated RBC % (auto) 0.0 (0.0-0.2) /100WBC PT 12.8 (10.8-13.0) SEC INR 1.1 (0.9-1.1) Sodium 140 (135-145) mmol/L Potassium 4.0 (3.3-5.1) mmol/L Chloride 107 (96-108) mmol/L Carbon Dioxide 24 (22-29) mmol/L Anion Gap 13 (12-20) BUN 20 H D (9-16) mg/dL Creatinine 0.78 (0.5-1.4) mg/dL Estim Creat Clear Calc 89.6 Estimated GFR > 60 POC Glucose (60-115) mg/dL Random Glucose 95 (60-115) mg/dL Calcium 9.6 D (8.4-10.2) mg/dL Magnesium 2.2 (1.6-2.6) mg/dL Total Bilirubin 1.6 H (0.0-1.0) mg/dL Direct Bilirubin 0.6 H (0.0-0.5) mg/dL AST 23 D (5-31) U/L ALT 22 (0-31) U/L Alkaline Phosphatase 96 D (39-117) U/L Total Protein 7.6 D (6.5-8.0) g/dL Albumin 4.6 D (3.5-5.0) g/dL Urine Color Urine Appearance Urine pH (5.0-8.0) Ur Specific [place] (1.005-1.025) Urine Protein (NEG-TRACE) MG/DL Urine Glucose (UA) (NEG) MG/DL Urine Ketones (NEG) MG/DL Urine Blood (NEG) Urine Nitrite (NEG) Ur Leukocyte Esterase (NEG) Urine RBC (0) /HPF Urine WBC (0-4) /HPF Ur Squamous Epith Cells /LPF Urine Bacteria /LPF Urine Mucus /LPF Urine Test (NEGATIVE) 07/09/20 07/09/20 07/09/20 Range/Units 14:37 15:23 15:23 WBC (4.8-10.8) X10*3/uL RBC (4.20-5.50) X10*6/uL Hgb (12.0-16.0) g/dl Hct (37-47) % MCV (80-98) fL MCH (27.0-33.0) pg MCHC (31.0-35.0) g/dl RDW (11.0-16.0) % Plt Count (160-400) X10*3/uL MPV (9.4-12.3) fL Immature Gran % (Auto) (0.0-0.4) % Neut % (Auto) (45-73) % Lymph % (Auto) (20-40) % Grand % (Auto) (2-11) % Eos % (Auto) (0-4) % Baso % (Auto) (0-2) % Lymph # (Auto) (1.2-4.9) X10*3/uL Grand # (Auto) (0.1-1.2) X10*3/uL Eos # (Auto) (0.0-0.4) X10*3/uL Baso # (Auto) (0.0-0.2) X10*3/uL Abs Immat Gran (auto) (0.00-0.03) X10*3/uL Absolute Neuts (auto) (2.0-8.3) X10*3/uL Absolute Nucleated RBC (0.0-0.012) X10*3/uL Nucleated RBC % (auto) (0.0-0.2) /100WBC PT (10.8-13.0) SEC INR (0.9-1.1) Sodium (135-145) mmol/L Potassium (3.3-5.1) mmol/L Chloride (96-108) mmol/L Carbon Dioxide (22-29) mmol/L Anion Gap (12-20) BUN (9-16) mg/dL Creatinine (0.5-1.4) mg/dL Estim Creat Clear Calc Estimated GFR POC Glucose 94 (60-115) mg/dL Random Glucose (60-115) mg/dL Calcium (8.4-10.2) mg/dL Magnesium (1.6-2.6) mg/dL Total Bilirubin (0.0-1.0) mg/dL Direct Bilirubin (0.0-0.5) mg/dL AST (5-31) U/L ALT (0-31) U/L Alkaline Phosphatase (39-117) U/L Total Protein (6.5-8.0) g/dL Albumin (3.5-5.0) g/dL Urine Color YELLOW Urine Appearance CLEAR Urine pH 6.0 (5.0-8.0) Ur Specific [place] 1.025 (1.005-1.025) Urine Protein NEG (NEG-TRACE) MG/DL Urine Glucose (UA) NEG (NEG) MG/DL Urine Ketones NEG (NEG) MG/DL Urine Blood 2+ H (NEG) Urine Nitrite NEG (NEG) Ur Leukocyte Esterase NEG (NEG) Urine RBC 0-2 (0) /HPF Urine WBC 0-2 (0-4) /HPF Ur Squamous Epith Cells 1+ /LPF Urine Bacteria 1+ /LPF Urine Mucus 1+ /LPF Urine Test NEGATIVE (NEGATIVE) Imaging Data CT scan - head: Attestation: I personally reviewed and interpreted this imaging study as follows: Radiologist's impression: EXAMINATION: CT HEAD WITHOUT CONTRAST CLINICAL INFORMATION: Weakness COMPARISON: CTA head and neck 03/07/2019, CT head noncontrast 08/08/2019 TECHNIQUE: Contiguous axial imaging was performed from the skull base to vertex without intravenous administration of contrast. Additional 2-D coronal and sagittal reformatted images are generated on the CT workstation and uploaded to PACS. This CT examination was performed using dose optimization techniques as appropriate, variously including the following: *Automated exposure control *Adjustment of mA and/or kV according to patient size (this includes techniques or standardized protocols for targeted exams where dose is matched to indication/reason for exam; i.e. extremities or head) *Use of iterative reconstruction technique DLP: 643 mGy-cm FINDINGS: There is no intracranial hemorrhage, hematoma, or extra-axial fluid collection. The ventricles are normal in size. There is no hydrocephalus, edema, or mass effect. There is periventricular white matter gliosis is again noted consistent with small vessel ischemic changes. There is no mass effect or edema. There is no visible acute territorial infarct or mass lesion. The calvarium appears intact. There is no pneumocephalus or orbital emphysema. The visualized sinuses and middle ears and mastoid air cells show no significant mucosal thickening. There are no air-fluid levels. CT/CT head/brain wo con IMPRESSION: No acute intracranial abnormality. MRI - head: Attestation: I personally reviewed and interpreted this imaging study as follows: Radiologist's impression: [address] [address] Resonance ReportSigned Patient: Elina Benites#: [id number]: 1990Acct:[id number]/Sex: M Date: 07/09/20Loc: [email or web address] Dr: Ordering Physician: VALENTIN OLEA NP Date of Service: 07/09/20 Procedure(s): MR head/brain wo con Accession Number(s): [id number] cc: VALENTIN LOEA NP~ MRI OF THE BRAIN WITHOUT IV CONTRAST INDICATION: Blurry vision and heaviness of the left side. COMPARISON: None available. TECHNIQUE: Multiplanar multisequence MR imaging of the brain was obtained without IV contrast. FINDINGS: There is no hydrocephalus, extra-axial surface collection, or herniation. No parenchymal signal abnormality. The major flow voids at the skull base are preserved. There is no acute infarct on diffusion-weighted imaging. There is no intracranial hemorrhage on the gradient recalled echo acquisition. The midline structures are normal. 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 The cerebellum and brainstem are normal. The craniocervical junction is normal. Osseous marrow signal intensity is homogenous. The visualized soft tissues are unremarkable. Small retention cysts within the inferior aspect of the left maxillary sinus. MR/MR head/brain wo con IMPRESSION: Unremarkable noncontrast MRI of the brain. ECG Data Attestation: I personally reviewed and interpreted this ECG as follows: Interpretation: NSR with SA with rate 90, normal pr, normal qrs, normal qtc Discharge Plan Discharge Clinical Impression: Dizziness Patient Disposition: Home, Self-Care Instructions: Lightheadedness (ED) Additional Instructions: Your ct scan, MRI looked normal Your heart rate did increase with position changes which can cause some lightheadeness. Increase fluids, change positions slowly. All other labs are unremarkable Follow-up with your PCP Prescriptions: No Action fluoxetine 10 mg capsule 10 mg PO DAILY 90 Days Qty: 90 RF: 0 famotidine [Pepcid] 20 mg tablet 20 mg PO BID Qty: 90 RF: 2 Mirena 20 mcg/24 hours (6 yrs) 52 mg intrauterine device 1 device intrauterine ONCE Qty: 1 RF: 0 (DME) lancets 28 gauge misc See Rx Instructions ea topical QID Qty: 100 RF: 0 (DME) FreeStyle Lite Strips Strip See Rx Instructions ea Not Applicable QID Qty: 10 RF: 0 (DME) blood-glucose meter Kit See Rx Instructions kit .ROUTE .MEDSUPPLY Qty: 1 RF: 0 albuterol sulfate 90 mcg/actuation HFA aerosol inhaler inhalation RF: 0 Plus (calcium carb) 27 mg iron- 1 mg tablet 1 tab PO DAILY RF: 0 hydrocortisone [Proctosol HC] 2.5 % cream with perineal applicator 1 appl MS BID Qty: 30 RF: 6 Referrals: Natsaha Simmons MD [Primary Care Provider] - 2 days Interventions: ED Discharge Assessment Last Done: 07/09/20 18:51 Discharge Date/Time: 07/09/20 18:52
[2020-07-09 14:27] LABS: MANUAL DIFF FLAG NO
[2020-07-09 14:28] LABS: Basophils Percent Auto 0.5 % (0-2); Eosinophils Absolute Auto 0.1 X10*3/uL (0.0-0.4); Eosinophils Percent Auto 1.2 % (0-4); Hematocrit 39.6 % (37-47); Hemoglobin 13.5 g/dl (12.0-16.0); Imm Gran Abs Auto 0.01 X10*3/uL (0.00-0.03); Imm Gran Pct Auto 0.2 % (0.0-0.4); Lymphocytes Absolute Auto 1.4 X10*3/uL (1.2-4.9); Lymphocytes Percent Auto 23.6 % (20-40); Mean Corpuscular HGB Conc 34.1 g/dl (31.0-35.0); Mean Corpuscular Hemoglobin 28.8 pg (27.0-33.0); Mean Corpuscular Volume 84.4 fL (80-98); Mean Platelet Volume 10.1 fL (9.4-12.3); Monocytes Absolute Auto 0.5 X10*3/uL (0.1-1.2); Monocytes Percent Auto 7.4 % (2-11); Neutrophils Absolute Auto 4.1 X10*3/uL (2.0-8.3); Neutrophils Percent Auto 67.1 % (45-73); Platelet Count 229 X10*3/uL (160-400); Red Blood Count 4.69 X10*6/uL (4.20-5.50); Red Cell Distribution Width 13.5 % (11.0-16.0); White Blood Count 6.1 X10*3/uL (4.8-10.8)
[2020-07-09 14:35] LABS: INTERNATIONAL NORM RATIO 1.1 (0.9-1.1); Prothrombin Time 12.8 SEC (10.8-13.0)
[2020-07-09 14:42] LABS: Glucose, Whole Blood 94 mg/dL (60-115)
[2020-07-09 14:55] LABS: Alanine Aminotransferase 22 U/L (0-31); Albumin Level 4.6 g/dL (3.5-5.0); Alkaline Phosphatase 96 U/L (39-117); Anion Gap 13 (12-20); Aspartate Amino Transferase 23 U/L (5-31); Bilirubin Direct 0.6 mg/dL (0.0-0.5); Bilirubin Total 1.6 mg/dL (0.0-1.0); Blood Urea Nitrogen 20 mg/dL (9-16); Calcium 9.6 mg/dL (8.4-10.2); Carbon Dioxide 24 mmol/L (22-29); Chloride 107 mmol/L (96-108); Creatinine Clr Calc Pharmacy 89.6; Estimated Glomerular Filt Rate > 60; Glucose Random 95 mg/dL (60-115); Magnesium 2.2 mg/dL (1.6-2.6); Sodium 140 mmol/L (135-145); Total Protein 7.6 g/dL (6.5-8.0)
[2020-07-09 15:36] LABS: Glucose Urine UA NEG (NEG); Leukocyte Esterase Urine NEG (NEG); Nitrite Urine NEG (NEG); Specific Gravity - Urine 1.025 (1.005-1.025); Urine Blood 2+ (NEG); Urine Ketones NEG (NEG); Urine Protein NEG (NEG-TRACE)
[2020-07-09 15:39] LABS: Appearance Urine CLEAR; Color Urine YELLOW
[2020-07-09 15:40] LABS: UPreg QC Valid YES; Urine Pregnancy NEGATIVE (NEGATIVE)
[2020-07-09 15:53] LABS: Bacteria Urine 1+ /LPF; RBC Urine 0-2 /HPF (0); Squamous Epithelial Cell Urine 1+ /LPF; WBC Urine 0-2 /HPF (0-4)
[2020-07-09 15:54] LABS: Mucus Urine 1+ /LPF
== END 2020-07-09 18:52 | disposition home or self-care (01) ==
PROVIDERS: Nurse Practitioner Family; Emergency Provider Emergency Medicine; PCP Internal Medicine
DX: R42 Dizziness and giddiness (principal); H53.8 Other visual disturbances; R00.0 Tachycardia, unspecified; Z79.899 Other long term (current) drug therapy
CPT/HCPCS: 36415; 70450; 70551; 80048; 80076; 81001; 81025; 82947; 83735; 85025; 85610; 93005; 99284

== ENCOUNTER → 2020-07-16 08:59 | Outpatient (BNVA) | payer OTHER, SELFPAY | PROVIDERS: Visit Provider Obstetrics & Gynecology ==

== ENCOUNTER → 2020-08-10 15:05 | Outpatient (BNVA) | payer SELFPAY | PROVIDERS: PCP Internal Medicine | DX: Z11.1 Encounter for screening for respiratory tuberculosis (principal) ==

== ENCOUNTER 2020-08-31 06:58 | Outpatient (REF) | payer OTHER, SELFPAY ==
[2020-08-31 08:46] LABS: Estimated Average Glucose 97 mg/dL
[2020-08-31 09:20] LABS: Alanine Aminotransferase 11 U/L (0-31); Albumin Level 4.4 g/dL (3.5-5.0); Alkaline Phosphatase 83 U/L (39-117); Anion Gap 12 (12-20); Aspartate Amino Transferase 17 U/L (5-31); Bilirubin Total 1.8 mg/dL (0.0-1.0); Blood Urea Nitrogen 19 mg/dL (9-16); Calcium 9.2 mg/dL (8.4-10.2); Carbon Dioxide 25 mmol/L (22-29); Chloride 106 mmol/L (96-108); Cholesterol 166 mg/dL; Estimated Glomerular Filt Rate > 60; Glucose Fasting 76 mg/dL (60-99); HDL Cholesterol 65 mg/dL; LDL Cholesterol Calculated 93 mg/dl; Potassium 4.4 mmol/L (3.3-5.1); Sodium 139 mmol/L (135-145); Total Protein 7.1 g/dL (6.5-8.0); Triglycerides 44 mg/dL
[2020-08-31 09:26] LABS: TSH reflex Free T4 1.82 uIU/mL (0.32-4.0)
== END 2020-08-31 06:59 | disposition home or self-care (01) ==
LOC: HO.LAB 06:58
PROVIDERS: PCP Internal Medicine; Visit Provider Internal Medicine
DX: Z00.01 Encounter for general adult medical examination with abnormal findings (principal); F41.9 Anxiety disorder, unspecified; R79.89 Other specified abnormal findings of blood chemistry; Z86.32 Personal history of gestational diabetes
CPT/HCPCS: 36415; 80053; 80061; 83036; 84443

== ENCOUNTER → 2020-09-04 08:36 | Outpatient (BNVA) | payer SELFPAY | PROVIDERS: PCP Internal Medicine | DX: Z11.1 Encounter for screening for respiratory tuberculosis (principal) ==

== ENCOUNTER → 2020-12-07 09:08 | Outpatient (BNVA) | payer SELFPAY | PROVIDERS: PCP Internal Medicine; Visit Provider Nurse Practitioner ==

== ENCOUNTER 2020-12-19 07:42 | Outpatient (REF) | payer OTHER, SELFPAY ==
[2020-12-19 08:35] LABS: Alanine Aminotransferase 11 U/L (0-31); Albumin Level 4.4 g/dL (3.5-5.0); Alkaline Phosphatase 96 U/L (39-117); Anion Gap 9 (12-20); Aspartate Amino Transferase 16 U/L (5-31); Bilirubin Direct 0.6 mg/dL (0.0-0.5); Bilirubin Total 1.7 mg/dL (0.0-1.0); Blood Urea Nitrogen 16 mg/dL (9-16); Calcium 9.1 mg/dL (8.4-10.2); Carbon Dioxide 28 mmol/L (22-29); Chloride 108 mmol/L (96-108); Estimated Glomerular Filt Rate > 60; Glucose Random 80 mg/dL (60-115); Potassium 4.2 mmol/L (3.3-5.1); Sodium 141 mmol/L (135-145)
== END 2020-12-19 07:43 | disposition home or self-care (01) ==
LOC: HO.LAB 07:42
PROVIDERS: PCP Internal Medicine; Visit Provider Nurse Practitioner
DX: R79.89 Other specified abnormal findings of blood chemistry (principal)
CPT/HCPCS: 36415; 80053; 82248

== ENCOUNTER → 2021-03-12 07:48 | Outpatient (BNVA) | payer OTHER, SELFPAY | PROVIDERS: PCP Internal Medicine; Visit Provider Nurse Practitioner ==

== ENCOUNTER 2021-03-19 07:14 | Outpatient (REF) | payer OTHER, SELFPAY ==
[2021-03-19 08:54] LABS: Alanine Aminotransferase 10 U/L (0-31); Albumin Level 4.5 g/dL (3.5-5.0); Alkaline Phosphatase 82 U/L (39-117); Aspartate Amino Transferase 15 U/L (5-31); Bilirubin Direct 0.6 mg/dL (0.0-0.5); Bilirubin Total 1.7 mg/dL (0.0-1.0); Gamma Glutamyl Transpeptidase 19 U/L (7-33); Lipase 35 U/L (8-78); Total Protein 7.3 g/dL (6.5-8.0)
[2021-03-19 09:05] LABS: Ferritin 25 ng/mL (10-122)
[2021-03-19 09:12] LABS: ~HepC Num1 0.35 S/CO (0.00-0.79); ~Hepatitis C Antibody Nonreactive (Nonreactive)
[2021-03-19 09:34] LABS: HBS Num1 3.62 mIU/mL (0-7.99); HBc Num1 0.13 S/CO (0.00-0.79); HBsAGNum1 0.28 S/CO (0.00-0.99); HIV AB/AG Nonreactive (Nonreactive); HIV Num 1 0.07 S/CO (0.00-0.99); Hepatitis A Antibody IgM 0.29 Index (0-0.79); Hepatitis B Core Antibody Nonreactive (Nonreactive); Hepatitis B Surface Antigen Negative (Negative); ~Hepatitis A Antibody IgM Nonreactive (Nonreactive); ~Hepatitis B Surface Antibody NONREACTIVE (Nonreactive)
[2021-03-20 11:57] LABS: Ceruloplasmin 32 mg/dL (18-53)
[2021-03-22 13:06] LABS: Alpha Fetoprotein 4.5 ng/mL
[2021-03-22 14:51] LABS: Anti Nuclear Antibody Screen NEGATIVE (NEGATIVE)
[2021-03-23 12:46] LABS: Mitochondrial Antibodies NEGATIVE (NEGATIVE)
[2021-03-24 23:28] LABS: Smooth Muscle Antibody <20 U (<20)
== END 2021-03-19 07:15 | disposition home or self-care (01) ==
LOC: HO.LAB 07:14
PROVIDERS: PCP Internal Medicine; Visit Provider Nurse Practitioner
DX: Z11.4 Encounter for screening for human immunodeficiency virus [HIV] (principal); R79.89 Other specified abnormal findings of blood chemistry
CPT/HCPCS: 36415; 80076; 82105; 82390; 82728; 82977; 83690; 86015; 86038; 86039; 86255; 86256; 86704; 86706; 86709; 86803; 87340; 87389

== ENCOUNTER 2021-04-01 15:05 | Outpatient (REF) | payer OTHER, SELFPAY | END 2021-04-01 15:06 | disposition home or self-care (01) | LOC: HO.LAB 15:05 | PROVIDERS: PCP Internal Medicine; Visit Provider Obstetrics & Gynecology | DX: Z01.419 Encounter for gynecological examination (general) (routine) without abnormal findings (principal) | CPT/HCPCS: 88142 ==

== ENCOUNTER 2021-05-24 08:01 | Outpatient (REF) | payer OTHER, SELFPAY ==
--- NOTE | ~2021-05-24 | US_ITS ---
EXAMINATION: US ABDOMEN COMPLETE CLINICAL INFORMATION: Other specific abnormal findings of blood chemistry. COMPARISON: Ultrasound abdomen 05/06/2019. TECHNIQUE: Real-time imaging of the abdominal viscera. FINDINGS: PANCREAS: The visualized portion of the pancreas head and body are normal, portion of the pancreatic body and tail, not visualized are obscured by bowel gas. ABDOMINAL AORTA: The proximal, mid, and distal segments are normal in caliber. INFERIOR VENA CAVA: Visualized portions are normal. LIVER: The liver is normal in size. The liver contour is normal. No focal hepatic lesion. There is no intrahepatic biliary duct dilatation seen. GALLBLADDER: Normal. The gallbladder is physiologically distended without evidence of stones, sludge, polyps, wall thickening or pericholecystic fluid. COMMON BILE DUCT: Normal in caliber measuring 0.3 cm in diameter. RIGHT KIDNEY: Normal. No hydronephrosis. No renal calculi or focal parenchymal lesions. The kidney measures 10.0 cm in maximum dimension. LEFT KIDNEY: Normal. No hydronephrosis. No renal calculi or focal parenchymal lesions. The kidney measures 10.4 cm in maximum dimension. SPLEEN: Enlarged The spleen measures 13.5 cm in maximum dimension. FREE FLUID: None. US/US abdomen complete IMPRESSION: *Splenomegaly, spleen measure up to 13.5 cm. *Ultrasound otherwise is normal.
== END 2021-05-24 08:02 | disposition home or self-care (01) ==
LOC: HO.US 08:01
PROVIDERS: PCP Internal Medicine; Visit Provider Nurse Practitioner
DX: R79.89 Other specified abnormal findings of blood chemistry (principal)
CPT/HCPCS: 76700

== ENCOUNTER → 2021-06-11 10:37 | Outpatient (BNVA) | payer OTHER, SELFPAY | PROVIDERS: PCP Internal Medicine; Referring Provider Internal Medicine; Visit Provider Nurse Practitioner | DX: Z13.89 Encounter for screening for other disorder (principal) ==

== ENCOUNTER 2021-12-21 06:53 | Outpatient (REF) | payer OTHER, SELFPAY ==
[2021-12-21 07:00] LABS: MANUAL DIFF FLAG NO
[2021-12-21 07:31] LABS: Basophils Percent Auto 0.8 % (0-2); Eosinophils Absolute Auto 0.1 X10*3/uL (0.0-0.4); Eosinophils Percent Auto 2.4 % (0-4); Hematocrit 42.5 % (37.0-47.0); Hemoglobin 14.6 g/dl (12.0-16.0); Imm Gran Abs Auto 0.01 X10*3/uL (0.00-0.03); Imm Gran Pct Auto 0.3 % (0.0-0.4); Lymphocytes Absolute Auto 1.4 X10*3/uL (1.2-4.9); Lymphocytes Percent Auto 36.5 % (20-40); Mean Corpuscular HGB Conc 34.4 g/dl (31.0-35.0); Mean Corpuscular Hemoglobin 30.7 pg (27.0-33.0); Mean Corpuscular Volume 89.5 fL (80.0-98.0); Mean Platelet Volume 10.2 fL (9.4-12.3); Monocytes Absolute Auto 0.3 X10*3/uL (0.1-1.2); Monocytes Percent Auto 8.6 % (2-11); Neutrophils Absolute Auto 1.9 x10*3/uL (2.0-8.3); Neutrophils Percent Auto 51.4 % (45-73); Platelet Count 218 X10*3/uL (160-400); Red Blood Count 4.75 X10*6/uL (4.20-5.50); Red Cell Distribution Width 12.5 % (11.0-16.0); White Blood Count 3.7 X10*3/uL (4.8-10.8)
[2021-12-21 11:16] LABS: Alanine Aminotransferase 13 U/L (0-31); Albumin Level 4.5 g/dL (3.5-5.0); Alkaline Phosphatase 67 U/L (39-117); Aspartate Amino Transferase 17 U/L (5-31); Bilirubin Direct 0.6 mg/dL (0.0-0.5); Bilirubin Total 1.8 mg/dL (0.0-1.0); Total Protein 7.2 g/dL (6.5-8.0)
== END 2021-12-21 06:54 | disposition home or self-care (01) ==
LOC: HO.LAB 06:53
PROVIDERS: Absent Provider Nurse Practitioner; PCP Internal Medicine; Visit Provider Internal Medicine
DX: Z00.01 Encounter for general adult medical examination with abnormal findings (principal); F41.1 Generalized anxiety disorder; R79.89 Other specified abnormal findings of blood chemistry
CPT/HCPCS: 36415; 80076; 82105; 85025

== ENCOUNTER 2022-02-03 08:38 | Outpatient (REF) | payer OTHER, SELFPAY ==
--- NOTE | ~2022-02-03 | US_ITS ---
EXAMINATION: US ABDOMEN LIMITED CLINICAL INFORMATION: Abnormal findings of blood chemistry. GERD. COMPARISON: Ultrasound abdomen complete 05/24/2021 and 05/06/2019. TECHNIQUE: Real-time imaging of the right upper quadrant abdominal viscera. FINDINGS: PANCREAS: Normal. LIVER: Normal. The liver is normal in size. The liver contour is normal. Parenchymal echogenicity is normal. No focal hepatic lesion. There is no intrahepatic biliary duct dilatation seen. GALLBLADDER: Gallbladder wall thickness is 0.37. The gallbladder is physiologically distended without evidence of stones, sludge, polyps, wall thickening or pericholecystic fluid. There is no tenderness in right upper quadrant. COMMON BILE DUCT: Normal in caliber measuring 0.4 cm in diameter. RIGHT KIDNEY: Normal. No hydronephrosis. No renal calculi or focal parenchymal lesions. The kidney measures 10.7 cm in maximum dimension. FREE FLUID: None. US/US abdomen limited IMPRESSION: Unremarkable limited abdomen ultrasound.
== END 2022-02-03 08:39 | disposition home or self-care (01) ==
LOC: HO.US 08:38
PROVIDERS: Visit Provider Nurse Practitioner
DX: R79.89 Other specified abnormal findings of blood chemistry (principal)
CPT/HCPCS: 76705

== ENCOUNTER 2022-02-24 11:47 | Outpatient (REF) | payer OTHER, SELFPAY ==
[2022-02-24 12:04] LABS: MANUAL DIFF FLAG NO
[2022-02-24 12:35] LABS: Basophils Percent Auto 0.6 % (0-2); Eosinophils Absolute Auto 0.1 X10*3/uL (0.0-0.4); Eosinophils Percent Auto 1.8 % (0-4); Hematocrit 40.6 % (37.0-47.0); Hemoglobin 14.4 g/dl (12.0-16.0); Imm Gran Abs Auto 0.02 X10*3/uL (0.00-0.03); Imm Gran Pct Auto 0.3 % (0.0-0.4); Lymphocytes Absolute Auto 1.7 X10*3/uL (1.2-4.9); Lymphocytes Percent Auto 27.7 % (20-40); Mean Corpuscular HGB Conc 35.5 g/dl (31.0-35.0); Mean Corpuscular Hemoglobin 31.2 pg (27.0-33.0); Mean Corpuscular Volume 88.1 fL (80.0-98.0); Mean Platelet Volume 10.2 fL (9.4-12.3); Monocytes Absolute Auto 0.4 X10*3/uL (0.1-1.2); Neutrophils Absolute Auto 3.9 x10*3/uL (2.0-8.3); Neutrophils Percent Auto 62.6 % (45-73); Platelet Count 288 X10*3/uL (160-400); Red Blood Count 4.61 X10*6/uL (4.20-5.50); Red Cell Distribution Width 12.1 % (11.0-16.0); White Blood Count 6.3 X10*3/uL (4.8-10.8)
[2022-02-24 13:16] LABS: Alanine Aminotransferase 14 U/L (0-31); Albumin Level 4.5 g/dL (3.5-5.0); Alkaline Phosphatase 71 U/L (39-117); Anion Gap 13 (12-20); Aspartate Amino Transferase 17 U/L (5-31); Bilirubin Total 1.9 mg/dL (0.0-1.0); Blood Urea Nitrogen 13 mg/dL (9-16); Calcium 9.2 mg/dL (8.4-10.2); Carbon Dioxide 22 mmol/L (22-29); Chloride 107 mmol/L (96-108); Estimated Glomerular Filt Rate > 60; Glucose Random 90 mg/dL (60-115); Potassium 4.3 mmol/L (3.3-5.1); Sodium 138 mmol/L (135-145); Total Protein 7.2 g/dL (6.5-8.0)
[2022-02-24 13:21] LABS: Thyroid Stimulating Hormone 1.54 uIU/mL (0.32-4.0); Vitamin D 25-OH Total 24.6 ng/mL (>30)
[2022-02-24 13:32] LABS: Folate 13.6 ng/mL (> or = 4.0); Vitamin B12 376 pg/mL (200-900)
== END 2022-02-24 11:48 | disposition home or self-care (01) ==
LOC: HO.LAB 11:47
PROVIDERS: PCP Internal Medicine; Visit Provider Social Worker
DX: G93.32 Myalgic encephalomyelitis/chronic fatigue syndrome (principal)
CPT/HCPCS: 36415; 80053; 82306; 82607; 82746; 84443; 85025

== ENCOUNTER 2022-03-03 09:43 | Outpatient (REF) | payer OTHER, SELFPAY ==
--- NOTE | ~2022-03-03 | XR_ITS ---
EXAMINATION: XR CERVICAL SPINE CLINICAL INFORMATION: Cervicalgia. COMPARISON: None TECHNIQUE: Frontal, odontoid and lateral views of the cervical spine were obtained. FINDINGS: There are no prevertebral soft tissue or bony abnormalities demonstrated. No compression fractures or subluxations are identified. Alignment is maintained at the atlanto-axial articulation. The disc spaces are preserved. No endplate changes are seen. The prevertebral soft tissues are normal. The foramina are patent. XR/XR cervical spine 2V IMPRESSION: Unremarkable examination.
== END 2022-03-03 09:44 | disposition home or self-care (01) ==
LOC: HO.XRAY 09:43
PROVIDERS: PCP Internal Medicine; Visit Provider Internal Medicine
DX: M54.2 Cervicalgia (principal)
CPT/HCPCS: 72040

== ENCOUNTER → 2022-06-21 12:26 | Outpatient (BNVA) | payer OTHER, SELFPAY | PROVIDERS: PCP Internal Medicine; Visit Provider Obstetrics & Gynecology ==

== ENCOUNTER 2022-07-21 13:56 | Outpatient (REF) | payer OTHER, SELFPAY ==
--- NOTE | ~2022-07-21 | MM_ITS ---
EXAMINATION: MM DIAGNOSTIC DIGITAL BREAST TOMOSYNTHESIS, BILATERAL US DIAGNOSTIC ULTRASOUND BREAST, RIGHT CLINICAL INFORMATION: 31-year-old with medial right breast mastodynia. No discharge or palpable abnormality. No known family history breast cancer. TC score 9%. COMPARISON: None (current study represents initial baseline exam). TECHNIQUE: Ultrasound right breast is initially performed and targeted to the area of clinical concern using grayscale imaging and color Doppler. Patient is able to point to the area at time of imaging. Digital breast tomosynthesis is performed following the ultrasound in both the craniocaudal and mediolateral oblique views along with computer-aided detection (CAD). Synthesized 2D images are generated from the tomosynthesis. Additional magnification left CC and magnification left ML views are obtained. FINDINGS: There are scattered areas of fibroglandular density (ACR BI-RADS breast composition Category b). There is no significant mass, architectural abnormality, or parenchymal asymmetric density. The axilla and skin contours are unremarkable. There is no skin thickening or coarsening of the Karri's ligaments. Left breast has grouped calcifications central 3:00 position approximately 6 cm from nipple, along the posterior nipple line. The additional magnification views demonstrate at least 10 heterogeneous calcifications of variable size grouped within an area of 2 x 4 mm in overall extent. Ultrasound right breast demonstrates no cystic or solid mass, architectural abnormality, or focal duct ectasia. No skin thickening or edema tracking in soft tissue planes. Results are discussed with the patient at time of visit. There is no mammographic or ultrasound correlate for patient's right medial breast mastodynia. This may be managed based on the clinical impression. The left breast calcifications are of unknown chronicity. Management options are discussed including tissue sampling with stereotactic biopsy as well as short interval serial mammography follow-up. MM/MM tomosynthesis diagnostic BI IMPRESSION: Left: -Grouped heterogeneous calcifications central 3:00 position. Right: -No mammographic evidence of malignancy or inflammatory changes. -Unremarkable targeted right breast ultrasound.. ASSESSMENT: BI-RADS 4: Suspicious (subcategory 4A: Low suspicion for malignancy) RECOMMENDATION: Left: -Consider stereotactic tissue sampling left breast calcifications. If biopsy is not performed, then short interval follow-up diagnostic mammography to include magnification views is recommended. Right: -Patient's right mastodynia should be managed based on the clinical impression.
== END 2022-07-21 13:57 | disposition home or self-care (01) ==
LOC: HO.MAMMO 13:56
PROVIDERS: PCP Internal Medicine; Visit Provider Obstetrics & Gynecology
DX: N64.4 Mastodynia (principal)
CPT/HCPCS: 76642; 77062; 77066

== ENCOUNTER → 2022-07-25 08:36 | Outpatient (BNVA) | payer OTHER, SELFPAY | PROVIDERS: PCP Internal Medicine; Visit Provider Obstetrics & Gynecology ==

== ENCOUNTER 2022-07-26 09:53 | Outpatient (REF) | payer OTHER, SELFPAY ==
--- NOTE | ~2022-07-26 | MM_ITS ---
EXAMINATION: STEREOTACTIC TOMOSYNTHESIS-GUIDED VACUUM-ASSISTED BREAST BIOPSY, LEFT SPECIMEN RADIOGRAPH, LEFT POST PROCEDURE DIGITAL MAMMOGRAM, LEFT CLINICAL INFORMATION: Grouped calcifications central 3:00 left breast near posterior nipple line for tissue sampling. COMPARISON: Mammography 07/21/2022 TECHNIQUE/PROCEDURE: At time of appointment, patient recalls prior history left breast incision and drainage. This may display in the calcifications, sequela from previous condition. Patient wishes to proceed with the tissue sampling. Informed consent was obtained from the patient after discussion of the benefits, risks, and alternatives to biopsy today. Patient appeared to understand. Gave opportunity for questions. Patient signed consent form. BIOPSY TABLE: [employer] Affirm Prone Biopsy System. LESION: Grouped heterogeneous calcifications central 3:00 left breast. LOCAL ANESTHESIA: 10 mL carbonated 1% lidocaine; 10 mL 1% lidocaine with epinephrine. DERMATOTOMY: Single skin nery dermatotomy performed. NEEDLE: [employer] Eviva 9-gauge vacuum assisted core biopsy device. APPROACH: lateral medial. TARGETING: Combination of digital breast tomosynthesis and stereotactic digital mammography used for targeting. CORES: 6. CLIP: [employer] Cylinder-shaped marker. SPECIMEN RADIOGRAPH: Specimen radiograph is taken in separate room using digital mammography. There are multiple tightly grouped heterogeneous coarse calcifications and one core consistent with the targeted area. POST PROCEDURE UNILATERAL DIGITAL MAMMOGRAM: The post biopsy mammogram is performed in separate room using separate digital mammography equipment from the biopsy procedure. CC and ML views are obtained. There are scattered areas of fibroglandular density (breast composition category: b). The clip marker is in position. The calcifications are markedly decreased at the biopsy site and no longer visualized with certainty. No gross hematoma. The patient tolerated the procedure well. No immediate complications. Home instructions reviewed with the patient. Final pathology results are pending. MM/MM stereotactic biopsy LT IMPRESSION: 1. Digital tomosynthesis-guided core biopsy left breast with clip placement. 2. Specimen radiograph taken and post procedure mammogram. There is satisfactory positioning of the biopsy clip. 3. Final pathology results pending. An addendum report will be issued.
[2022-07-26] MEDS: Sodium Bicarbonate 8.4% 50 MEQ/50 ML VIAL SUBCUT (11:18)
== END 2022-07-26 09:54 | disposition home or self-care (01) ==
LOC: HO.MAMMO 09:53
PROVIDERS: PCP Internal Medicine; Visit Provider Surgery
DX: R92.8 Other abnormal and inconclusive findings on diagnostic imaging of breast (principal)
CPT/HCPCS: 19081; 88305; A4648

== ENCOUNTER → 2022-07-27 13:37 | Outpatient (BNVA) | payer OTHER, SELFPAY | PROVIDERS: PCP Internal Medicine; Visit Provider Nurse Practitioner ==

== ENCOUNTER → 2022-08-02 09:13 | Outpatient (BNVA) | payer OTHER, SELFPAY | PROVIDERS: PCP Internal Medicine; Visit Provider Surgery ==

== ENCOUNTER 2022-08-23 11:29 | Outpatient (AMB) | payer OTHER, SELFPAY ==
--- NOTE | 2022-08-23 11:30 | A.OFFPC_ITS ---
Vital Signs 08/23/22 11:31 Height 5 ft 3 in Weight 141 lb 6 oz BMI 25.0 BP 124/72 Blood Pressure Location Lt brachial Position Sitting Pulse 77 Pulse Source Pulse Oximeter Pulse Oximetry (%) 99 Oxygen Delivery Method Room Air Intake Visit Reasons: pe Allergies No Known Allergies Allergy (Verified 08/23/22 11:34) Medication List - Last Reconciled 08/23/22 by Natasha Simmons MD levonorgestrel (Mirena) intrauterine lorazepam 0.5 mg PO DAILY PRN sertraline 50 mg PO DAILY Tobacco use date assessed: 08/23/22 Dental Screening Dental Screen Date: 08/23/22 Did you have a dental visit in the last 12 months?: Yes Did you have a dental problem in the last 6 months where you did not have access to dental care?: No Was dental information given to patient?: No HPI pe HPI Details PE Has OBGYN Psychiatric medications through Psychiatry Dr. Estrada Patient was evaluated for axillary boil in walk-in clinic last week and was prescribed doxycycline for 7 days She continued to have slight redness but that is on both sides. There is no pain , no lumps felt on examination I would recommend for her to wear loose cotton shirts that might help PFSH Medical History Anxiety Asthma History of gestational diabetes Lactating mother Threatened labor at term Surgical History History of incision and drainage Hx of dilation and curettage Hx of wisdom tooth extraction Family History Father Family hx-stroke History of esophageal cancer Mother Anxiety Maternal Grandmother Hx of congestive heart failure Hx of diabetes mellitus Maternal Grandfather Colon cancer Hx of diabetes mellitus Paternal Grandfather Cancer Sister Mental health disorder Maternal Aunt Substance use disorder Social History Household Members: Spouse and Children Housing: House Alcohol intake: never Patient Tobacco Use Status: Never used Tobacco e-Cigarette/Vaping Use: Never Used Second Hand Smoke Exposure: No service: No Current occupational status: employed Gender identity: Female Cognitive needs: No Hearing needs: No Vision needs: No Female Reproductive History Menstrual Age of Menarche: 16 Questionnaire Thrive Questionnaire Date Thrive assessed: 08/17/21 AUDIT C Alcohol Use Questionnaire (AUDIT-C) 1. How often do you have a drink containing alcohol?: Monthly or less 2. How many drinks containing alcohol do you have on a typical day when you are drinking?: 1 or 2 3. How often do you have six or more drinks on one occasion?: Never Total Score: 1 Score Reviewed/Action Taken: Yes HENOK-7 AMB Questionnaire HENOK-7 Date HENOK - 7 assessed: 08/17/21 Source: Developed by Drs. Americo Gong, Saloni Ordoñez, Constantino Pantoja and colleagues, with an educational cherry from [employer]. Review of Systems Const Denies chills, Denies fever(s) and Denies headache(s) Eyes Denies blurry vision ENT Denies headache(s), Denies nasal discharge, Denies nasal obstruction, Denies odynophagia and Denies sinus pain Card Denies chest pain at rest and Denies chest pain with activity Resp Denies cough and Denies hemoptysis GI Denies diarrhea, Denies odynophagia, Denies vomiting and Denies hematemesis Reports as per HPI Musc Denies abnormal gait Skin/Breast Reports as per HPI Neuro Denies Neuro-related abnormal movements, Denies Abnormal speech present, Denies abnormal gait, Denies headache(s) and Denies Sensory deficit (Neuro) Psych Denies mood swings and Denies paranoia Endo Reports as per HPI Danny/Lymph Reports as per HPI Aller/Immun Reports as per HPI Physical exam (Primary Care) Vital Signs: Last Vital Signs Pulse 77 08/23/22 11:31 BP 124/72 08/23/22 11:31 Pulse Ox 99 08/23/22 11:31 Oxygen Delivery Method Room Air 08/23/22 11:31 BMI result Body Mass Index 25.0 Tobacco/Smoking Status: Tobacco use Status Tobacco use date assessed 08/23/22 08/23/22 11:38 Patient Tobacco Use Status Never used Tobacco 08/23/22 11:33 e-Cigarette/Vaping Use Never Used 08/23/22 11:33 Thrive Assessment: Date of Thrive Assessment Date Thrive assessed 08/17/21 08/23/22 11:33 Const General: cooperative, comfortable and no acute distress Orientation/consciousness: patient oriented x3 HENMT Head: Yes normocephalic and Yes atraumatic Eyes General: appearance normal, both eyes and all related structures Pupils: Equal, round and reactive pupils present EOM: EOMs intact bilaterally Neck Neck: Yes supple and No lymphadenopathy Thyroid: Thyroid normal Lymphatic: no lymphadenopathy noted Resp Effort & Inspection: normal respiratory effort and able to speak in complete sentences Auscultation: clear to auscultation bilaterally Cardio Heart sounds: S1 normal heart sound present and S2 normal heart sound present GI Palpation (GI): Soft to palpation and nontender Auscultation: normal bowel sounds General: Yes no CVA tenderness Back/Spine/Pelvis Back: no CVA tenderness Skin Other: Slight redness axillary bilateral without any pain or lump General skin exam: elasticity normal and turgor normal Neuro General: patient oriented x3 and gait normal Cranial nerves: Yes Equal, round and reactive pupils present Speech: No Abnormal speech present Sensory Exam: No Sensory deficit (Neuro) Coordination: tandem gait normal and Romberg test negative Extrem General: Yes normal exam except as noted and No edema Assessment and Plan Assessment & Plan (1) Adult general medical exam: Code(s): Z. - Encounter for general adult medical examination without abnormal findings Plan PE Has OBGYN Psychiatric medications through Psychiatry Dr. Estrada Patient was evaluated for axillary boil in walk-in clinic last week and was prescribed doxycycline for 7 days She continued to have slight redness but that is on both sides. There is no pain , no lumps felt on examination I would recommend for her to wear loose cotton shirts that might help Orders: Orders Comprehensive [place]. Panel Fast Today Z. - Encounter for general adult medical examination without abnormal findings Lipid Panel Today Z. - Encounter for general adult medical examination without abnormal findings Complete Blood Count Auto Diff Today Z00. - Encounter for general adult medical examination without abnormal findings Coding Level of Care Code Est Pt Prev Care 18-39y(76689) Diagnoses Adult general medical exam Z00.
[2022-08-23 11:31] VITALS: BP 124/72; PULSE 77; O2SAT 99; BMI 25.0
== END 2022-08-23 12:00 | disposition home or self-care (01) ==
PROVIDERS: Visit Provider Internal Medicine
DX: Z00.00 Encounter for general adult medical examination without abnormal findings (principal)
CPT/HCPCS: 99395

== ENCOUNTER 2022-08-31 07:08 | Outpatient (REF) | payer OTHER, SELFPAY ==
[2022-08-31 07:19] LABS: MANUAL DIFF FLAG NO
[2022-08-31 07:58] LABS: Basophils Percent Auto 0.7 % (0-2); Eosinophils Absolute Auto 0.1 X10*3/uL (0.0-0.4); Eosinophils Percent Auto 1.8 % (0-4); Hematocrit 39.6 % (37.0-47.0); Hemoglobin 14.1 g/dl (12.0-16.0); Imm Gran Abs Auto 0.01 X10*3/uL (0.00-0.03); Imm Gran Pct Auto 0.2 % (0.0-0.4); Lymphocytes Absolute Auto 1.5 X10*3/uL (1.2-4.9); Mean Corpuscular HGB Conc 35.6 g/dl (31.0-35.0); Mean Corpuscular Hemoglobin 31.5 pg (27.0-33.0); Mean Corpuscular Volume 88.4 fL (80.0-98.0); Mean Platelet Volume 10.2 fL (9.4-12.3); Monocytes Absolute Auto 0.4 X10*3/uL (0.1-1.2); Monocytes Percent Auto 9.2 % (2-11); Neutrophils Absolute Auto 2.4 x10*3/uL (2.0-8.3); Neutrophils Percent Auto 54.1 % (45-73); Platelet Count 212 X10*3/uL (160-400); Red Blood Count 4.48 X10*6/uL (4.20-5.50); White Blood Count 4.4 X10*3/uL (4.8-10.8)
[2022-08-31 08:22] LABS: Alanine Aminotransferase 12 U/L (0-31); Albumin Level 4.3 g/dL (3.5-5.0); Alkaline Phosphatase 80 U/L (39-117); Anion Gap 12 (12-20); Aspartate Amino Transferase 15 U/L (5-31); Bilirubin Total 2.2 mg/dL (0.0-1.0); Blood Urea Nitrogen 11 mg/dL (9-16); Calcium 9.3 mg/dL (8.4-10.2); Carbon Dioxide 25 mmol/L (22-29); Chloride 106 mmol/L (96-108); Cholesterol 146 mg/dL; Estimated Glomerular Filt Rate > 60; Glucose Fasting 86 mg/dL (60-99); HDL Cholesterol 48 mg/dL; LDL Cholesterol Calculated 84 mg/dl; Potassium 3.8 mmol/L (3.3-5.1); Sodium 139 mmol/L (135-145); Triglycerides 74 mg/dL
== END 2022-08-31 07:09 | disposition home or self-care (01) ==
LOC: HO.LAB 07:08
PROVIDERS: PCP Internal Medicine; Visit Provider Internal Medicine
DX: Z00.00 Encounter for general adult medical examination without abnormal findings (principal)
CPT/HCPCS: 36415; 80053; 80061; 85025

== ENCOUNTER 2022-08-31 09:34 | Outpatient (AMB) | payer OTHER, SELFPAY ==
--- NOTE | 2022-08-31 10:04 | AM.OFFWIN_ITS ---
Intake Vital Signs 08/31/22 10:10 BP 118/74 Blood Pressure Location Lt brachial Position Sitting Pulse 60 Pulse Source Pulse Oximeter Temp 98.2 F Temp Source Temporal Artery Scan Pulse Oximetry (%) 98 Oxygen Delivery Method Room Air Intake Visit Reasons: EP very dry mouth [phone] Intake Note: Patient here for dry mouth for the past 5 days, she has been staying hydrated a nd drinking a lot of water. Patient Tobacco Use Status: Never used Tobacco Allergies No Known Allergies Allergy (Verified 08/31/22 10:05) Do you need a note to return to daycare/school/sports/work: No HPI EP very dry mouth [phone] HPI Details 31-year-old female patient presents today with two primary complaints. She reports new onset of dry mouth over the last week or so. She reports she has been well-hydrated and can't seem to keep her mouth moist. Her Zoloft dose was recently increased from 25mg to 50mg daily. No other med changes. She also reports over the last month or so having some shortness of breath with physical activity. She has not experienced this previously. Denies any chest pain or wheezing. This goes away with rest. No history of asthma. She had a PE with her PCP Dr. Simmons last week and had ordered labs done this morning. [facility] Medical History Anxiety Asthma History of gestational diabetes Lactating mother Threatened labor at term Surgical History History of incision and drainage Hx of dilation and curettage Hx of wisdom tooth extraction Family History Father Family hx-stroke History of esophageal cancer Mother Anxiety Maternal Grandmother Hx of congestive heart failure Hx of diabetes mellitus Maternal Grandfather Colon cancer Hx of diabetes mellitus Paternal Grandfather Cancer Sister Mental health disorder Maternal Aunt Substance use disorder Social History Household Members: Spouse and Children Housing: House Alcohol intake: never Patient Tobacco Use Status: Never used Tobacco e-Cigarette/Vaping Use: Never Used Second Hand Smoke Exposure: No service: No Current occupational status: employed Gender identity: Female Cognitive needs: No Hearing needs: No Vision needs: No Female Reproductive History Menstrual Age of Menarche: 16 Review of Systems Const All systems reviewed & are unremarkable except as noted in HPI and below Physical Exam Vital Signs: Last Vital Signs Temp 98.2 F 08/31/22 10:10 Pulse 60 08/31/22 10:10 BP 118/74 08/31/22 10:10 Pulse Ox 98 08/31/22 10:10 Oxygen Delivery Method Room Air 08/31/22 10:10 Const General: cooperative, healthy appearing, comfortable and no acute distress HEENT Mouth: Normal oral and palatal mucosa present and moist mucous membranes Teeth and gingiva: dentition normal Throat: Yes posterior oropharynx normal Neck Neck: Yes no lymphadenopathy Chest Chest palpation & inspection: normal inspection of the chest Resp Effort & Inspection: normal respiratory effort and able to speak in complete sentences Auscultation: clear to auscultation bilaterally Cardio Jugular venous distension: no JVD Palpation: normal PMI Rate: regular rate Rhythm: regular rhythm Skin General skin exam: no rashes or lesions noted Extrem General: Yes capillary refill normal and Yes no clubbing, cyanosis or edema Psych Appearance: grossly normal Mental Status: mental status grossly normal Speech and movement: Normal speech and movement present Assessment & Plan Assessment & Plan (1) Dry mouth: Code(s): R68.2 - Dry mouth, unspecified Plan: Oral exam is unremarkable. Her Zoloft dose was recently doubled. We discussed SSRI s/e of dry mouth is quite common, and this may likely be the reason for her symptoms. She has a f/u with psych provider in 1-2 weeks and will discuss this with them. I advised lozenges, gum, mints in the meantime to combat the dry mouth. (2) Shortness of breath on exertion: Code(s): R06.02 - Shortness of breath Plan: Patient reports some mild shortness of breath with exertion over the last month or so. She had a PE recently with PCP however did not discuss this at that time. No respiratory/asthma history. LS and heart sounds normal at this time. She had labs done this morning which were previously orderd by her PCP. These appear normal. I will order a CXR at this time and advised her to f/u with PCP. If she develops any increasing shortness of breath or other concerning symptoms she should return to the clinic or ED. She agrees to plan. Orders: Orders XR chest 2V Today R06.02 - Shortness of breath Coding Level of Care Code Est Pt Level 3 (32032) Diagnoses Dry mouth R68.2 Shortness of breath on exertion R06.02
[2022-08-31 10:10] VITALS: BP 118/74; PULSE 60; TEMP 36.8; O2SAT 98
== END 2022-08-31 10:47 | disposition home or self-care (01) ==
PROVIDERS: PCP Internal Medicine; Visit Provider Nurse Practitioner Family
DX: R68.2 Dry mouth, unspecified (principal); R06.02 Shortness of breath
CPT/HCPCS: 99213

== ENCOUNTER 2022-09-01 15:08 | Outpatient (REF) | payer OTHER, SELFPAY ==
--- NOTE | ~2022-09-01 | XR_ITS ---
EXAMINATION: XR CHEST CLINICAL INFORMATION: Shortness of breath. COMPARISON: 05/06/2019 TECHNIQUE: 2 views of the chest were obtained. FINDINGS: The lungs are well expanded. No focal consolidation. No pleural effusion. Cardiac silhouette is within normal limits. XR/XR chest 2V IMPRESSION: No acute abnormality.
== END 2022-09-01 15:09 | disposition home or self-care (01) ==
LOC: HO.XRAY 15:08
PROVIDERS: PCP Internal Medicine; Visit Provider Nurse Practitioner Family
DX: R06.02 Shortness of breath (principal)
CPT/HCPCS: 71046

== ENCOUNTER 2022-09-11 11:04 | Emergency (ER) | payer OTHER, SELFPAY ==
[2022-09-11 11:18] VITALS: BP 144/97; PULSE 99; RESP 18; TEMP 36.6; O2SAT 95; BMI 25.7
--- NOTE | 2022-09-11 11:23 | ED.SKABFB ---
HPI - Skin/Abscess/Foreign Bdy General Chief complaint: Skin/Abscess/Foreign Body Stated complaint: Abscess Time Seen by Provider: 09/11/22 11:25 Source: patient Mode of arrival: ambulatory Limitations: no limitations History of Present Illness HPI narrative: 31 yo female here with left axilla swelling/redness x several days. She reports a few weeks ago she had a similar area of swelling/redness and did a course of doxycycline which seemed to resolve the swelling/redness. No fevers, chills, Patient reports she has some irritation in the right axilla as well. She has tried to limit shaving, usage of deodorant. Related Data Home Medications Medication Instructions Recorded Confirmed levonorgestrel 21 mcg/24 hours (8 intrauterine 04/01/21 08/23/22 yrs) 52 mg intrauterine device (Mirena) lorazepam 0.5 mg tablet 0.5 mg PO DAILY PRN 07/27/22 08/23/22 sertraline 50 mg tablet 50 mg PO DAILY 07/27/22 08/23/22 Previous Rx's Medication Instructions Recorded sulfamethoxazole 800 1 tab PO BID #14 tabs 09/11/22 mg-trimethoprim 160 mg tablet (Bactrim DS) Allergies Allergy/AdvReac Type Severity Reaction Status Date / Time No Known Allergies Allergy Verified 09/11/22 11:25 Review of Systems Review of Systems: Yes all other systems are reviewed and are negative Constitutional: Constitutional: Reports no additional constitutional complaints, Denies chills and Denies fever(s) Cardiovascular: Cardiovascular: Denies chest pain and Denies dyspnea Respiratory: Respiratory: Reports no additional respiratory complaints and Denies dyspnea Integumentary/Breasts: Skin/Breast: Reports swelling, Reports erythema and Reports rash Neurologic: Reports system reviewed and no additional complaints, except as documented PMFSH Past Medical History Attestation statement: The following information was validated with the patient. Source: old records reviewed and nursing notes reviewed Medical History Anxiety Asthma History of gestational diabetes Lactating mother Threatened labor at term Surgical History History of incision and drainage Hx of dilation and curettage Hx of wisdom tooth extraction Family History Family History Father Family hx-stroke History of esophageal cancer Mother Anxiety Maternal Grandmother Hx of congestive heart failure Hx of diabetes mellitus Maternal Grandfather Colon cancer Hx of diabetes mellitus Paternal Grandfather Cancer Sister Mental health disorder Maternal Aunt Substance use disorder Social History Social History Household Members: Spouse and Children Housing: House Alcohol intake: never Patient Tobacco Use Status: Never used Tobacco e-Cigarette/Vaping Use: Never Used Second Hand Smoke Exposure: No Advance Directives: No Advance Directives Information Provided: Yes service: No Current occupational status: employed Gender identity: Female Cognitive needs: No Hearing needs: No Vision needs: No Physical Exam Vital Signs: Vital Signs: Last Vital Signs Temp 98 F 09/11/22 11:18 Pulse 99 09/11/22 11:18 Resp 18 09/11/22 11:18 BP 144/97 H 09/11/22 11:18 Pulse Ox 95 09/11/22 11:18 O2 Del Method Room Air 09/11/22 11:18 BMI result Body Mass Index 25.7 Const: General: cooperative, healthy appearing, comfortable and no acute distress Orientation/consciousness: patient oriented x3 Limitations: no limitations HEENT: Head: Yes normal to inspection Eyes: General: appearance normal, both eyes and all related structures Chest: Chest/axillae images: 1. Small abscess which is draining Surrounding irritation noted 2. +irritation noted Resp: Effort & Inspection: normal respiratory effort Back/Spine/Pelvis: Thoracic/Lumbar Spine: thoracic and lumbar spine normal to inspection Neuro: General: patient oriented x3 and moves all extremities Cognition (Neuro): normal cognition Gait exam (Neuro): Normal gait present Extrem: General: Yes normal to inspection Medical Decision Making Medical Decision Making MDM Narrative: 31 yo female here with irritation to bilateral axilla x several weeks, had abscess to left axilla which improved with doxycycline but now has returned. On exam has small abscess to left axilla which is draining spontaneously. No lymphadenopathy Patient nontoxic-afebrile, VSS Has irritation to bilateral axilla ?irritant dermatitis secondary to shaving/deodorant use Has h/o MRSA-will initiate course of bactrim x 7 days, recommend warm compresses Differential Diagnosis Differential Diagnoses: The differential diagnosis associated with the presentation includes abscess Prescription Management I considered prescription management with: Antibiotic Discharge Plan Discharge Clinical Impression: Abscess of axilla, left Patient Disposition: Home, Self-Care Instructions: Abscess (ED) Additional Instructions: Warm compresses or warm tea bags 4 times daily Take motrin/tylenol as needed Prescriptions: New sulfamethoxazole-trimethoprim [Bactrim DS] 800-160 mg tablet 1 tab PO BID Qty: 14 0RF No Action Mirena 20 mcg/24 hours (6 yrs) 52 mg intrauterine device 1 device intrauterine ONCE Qty: 1 0RF Mirena 20 mcg/24 hours (7 yrs) 52 mg intrauterine device intrauterine lorazepam 0.5 mg tablet 0.5 mg PO DAILY PRN sertraline 50 mg tablet 50 mg PO DAILY Referrals: Natasha Simmons MD [Primary Care Provider] - 1 week (as needed ) Interventions: ED Discharge Assessment Last Done: 09/11/22 11:39 Discharge Date/Time: 09/11/22 11:39
== END 2022-09-11 11:39 | disposition home or self-care (01) ==
PROVIDERS: Emergency Provider Student in an Organized Health Care Education/Training Program; PCP Internal Medicine
DX: L02.412 Cutaneous abscess of left axilla (principal); Z79.899 Other long term (current) drug therapy
CPT/HCPCS: 10060; 99282; 99284

== ENCOUNTER 2022-09-12 14:43 | Outpatient (AMB) | payer OTHER, SELFPAY ==
--- NOTE | 2022-09-12 14:45 | MHC.OFFVIS ---
Intake Vital Signs 09/12/22 14:49 Height 5 ft 3 in Weight 142 lb BMI 25.2 BP 127/74 Blood Pressure Location Rt brachial Position Sitting Pulse 88 Intake Visit Reasons: Left breast pain Intake Note: Patient c/o Lt breast pain X4-5days. Reports pain is under breast bx incision. Was diagnosed with Lt axilla abscess at the beginning of August. Was prescribed a round Doxy. Abscess did not clear. Currently on Bactrim for abscees. 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 The former began a few days ago and has been given antibiotics. Because of history of MRSA, patient was prescribed Bactrim. This carpal Marmolejo spontaneously drained yesterday. Breast pain is been over the last 1-2 days. His left breast only. She has had a nonspecific left breast complaints and extensive workup for this in the past polyp which has been negative. Patient is well-known to me. Chart was reviewed patient evaluated [facility] Medical History Anxiety Asthma History of gestational diabetes Lactating mother Threatened labor at term Surgical History History of incision and drainage Hx of dilation and curettage Hx of wisdom tooth extraction Family History Father Family hx-stroke History of esophageal cancer Mother Anxiety Maternal Grandmother Hx of congestive heart failure Hx of diabetes mellitus Maternal Grandfather Colon cancer Hx of diabetes mellitus Paternal Grandfather Cancer Sister Mental health disorder Maternal Aunt Substance use disorder Social History Household Members: Spouse and Children Housing: House Alcohol intake: never Patient Tobacco Use Status: Never used Tobacco e-Cigarette/Vaping Use: Never Used Second Hand Smoke Exposure: No service: No Current occupational status: employed Gender identity: Female Cognitive needs: No Hearing needs: No Vision needs: No Female Reproductive History Menstrual Age of Menarche: 16 Physical Exam Vital Signs: Last Vital Signs Pulse 88 09/12/22 14:49 BP 127/74 09/12/22 14:49 BMI result Body Mass Index 25.2 Chest Other: Patient has a resolving carbuncle left axilla with few associated the surrounding pupils. No obvious abscess. No periclavicular axillary adenopathy. Bilateral breast exam demonstrates no obvious mass discharge adenopathy or skin changes bilaterally. Assessment & Plan Assessment & Plan (1) Carbuncle and furuncle: Code(s): L02.92 - Furuncle, unspecified; L02.93 - Carbuncle, unspecified Plan The present time, patient will be treated conservatively. She should complete her antibiotic course, apply warm compresses the axilla, and will follow-up at the other week should her symptoms fail to improve or progress. All questions were answered. Coding Level of Care Code Est Pt Level 3 (54805) Diagnoses Carbuncle and furuncle L02.92; L02.93
[2022-09-12 14:49] VITALS: BP 127/74; PULSE 88; BMI 25.2
== END 2022-09-12 15:22 | disposition home or self-care (01) ==
PROVIDERS: PCP Internal Medicine; Referring Provider Obstetrics & Gynecology; Visit Provider Surgery
DX: L02.92 Furuncle, unspecified (principal); L02.93 Carbuncle, unspecified
CPT/HCPCS: 99213

== ENCOUNTER → 2022-09-12 14:43 | Outpatient (BNVA) | payer OTHER, SELFPAY | PROVIDERS: PCP Internal Medicine; Referring Provider Obstetrics & Gynecology; Visit Provider Surgery ==

== ENCOUNTER 2022-10-03 11:44 | Outpatient (AMB) | payer OTHER, SELFPAY ==
--- NOTE | 2022-10-03 11:52 | A.OFFVIS_ITS ---
Intake Intake Visit Reasons: Left breast pain and redness, s/p breast bx Intake Note: Patient is seen in office for follow up visit, following left breast pain and redness, post breast bx. 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 Patient has had history of breast abscess requiring incision and drainage in the past. [facility] Medical History Anxiety Asthma History of gestational diabetes Lactating mother Threatened labor at term Surgical History History of incision and drainage Hx of dilation and curettage Hx of wisdom tooth extraction Family History Father Family hx-stroke History of esophageal cancer Mother Anxiety Maternal Grandmother Hx of congestive heart failure Hx of diabetes mellitus Maternal Grandfather Colon cancer Hx of diabetes mellitus Paternal Grandfather Cancer Sister Mental health disorder Maternal Aunt Substance use disorder Social History Household Members: Spouse and Children Housing: House Alcohol intake: never Patient Tobacco Use Status: Never used Tobacco e-Cigarette/Vaping Use: Never Used Second Hand Smoke Exposure: No service: No Current occupational status: employed Gender identity: Female Cognitive needs: No Hearing needs: No Vision needs: No Female Reproductive History Menstrual Age of Menarche: 16 Physical Exam Chest Other: Right breast within normal limits. Left breast demonstrates some superficial cellulitis extending from the 2 o'clock position to the areolar at 12:00 o'clock. No obvious fluctuance or abscess. Assessment & Plan Assessment & Plan (1) Cellulitis: Code(s): L03.90 - Cellulitis, unspecified Plan The superficial cellulitic area was encircled with a marking pen. Patient has been given a script for antibiotics ( Bactrim) with her history of MRSA. Also warm compresses to the area several times a day. Patient has been scheduled to see me a few days time or p.r.n. should the process extended beyond the marking. Medications: New sulfamethoxazole-trimethoprim 400-80 mg (Bactrim) 1 tab PO BID 20 tabs 0RF Coding Level of Care Code Est Pt Level 3 (13594) Diagnoses Cellulitis L03.90
== END 2022-10-03 12:12 | disposition home or self-care (01) ==
PROVIDERS: PCP Internal Medicine; Visit Provider Surgery
DX: L03.90 Cellulitis, unspecified (principal)
CPT/HCPCS: 99213

== ENCOUNTER → 2022-10-03 11:44 | Outpatient (BNVA) | payer OTHER, SELFPAY | PROVIDERS: PCP Internal Medicine; Visit Provider Surgery ==

== ENCOUNTER 2022-10-10 11:42 | Outpatient (AMB) | payer OTHER, SELFPAY ==
--- NOTE | 2022-10-10 11:46 | MHC.OFFVIS ---
Intake Vital Signs 10/10/22 11:47 Height 5 ft 3 in Weight 139 lb BMI 24.6 BP 119/78 Blood Pressure Location Rt brachial Position Sitting Pulse 80 Intake Visit Reasons: Left breast pain and redness, s/p breast bx Intake Note: Patient here to f/u Lt breast pain. Reports no changes. Denies pain, redness, rash, itch on breasts. Lt breast bx incisions healed well. 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 She has a marked improvement of left breast symptoms. Redness has resolved. She still has a feeling of fullness there. [facility] Medical History Anxiety Asthma History of gestational diabetes Lactating mother Threatened labor at term Surgical History History of incision and drainage Hx of dilation and curettage Hx of wisdom tooth extraction Family History Father Family hx-stroke History of esophageal cancer Mother Anxiety Maternal Grandmother Hx of congestive heart failure Hx of diabetes mellitus Maternal Grandfather Colon cancer Hx of diabetes mellitus Paternal Grandfather Cancer Sister Mental health disorder Maternal Aunt Substance use disorder Social History Household Members: Spouse and Children Housing: House Alcohol intake: never Patient Tobacco Use Status: Never used Tobacco e-Cigarette/Vaping Use: Never Used Second Hand Smoke Exposure: No service: No Current occupational status: employed Gender identity: Female Cognitive needs: No Hearing needs: No Vision needs: No Female Reproductive History Menstrual Age of Menarche: 16 Physical Exam Vital Signs: Last Vital Signs Pulse 80 10/10/22 11:47 BP 119/78 10/10/22 11:47 BMI result Body Mass Index 24.6 Chest Other: Complete resolution of left breast cellulitis. No evidence of any fluctuance or abscess. Exam otherwise benign. Assessment & Plan Assessment & Plan (1) Cellulitis: Code(s): L03.90 - Cellulitis, unspecified Plan Patient has been given local instructions, and will follow-up p.r.n.. Coding Level of Care Code Est Pt Level 4 (88650) Diagnoses Cellulitis L03.90
[2022-10-10 11:47] VITALS: BP 119/78; PULSE 80; BMI 24.6
== END 2022-10-10 12:00 | disposition home or self-care (01) ==
PROVIDERS: PCP Internal Medicine; Visit Provider Surgery
DX: L03.90 Cellulitis, unspecified (principal)
CPT/HCPCS: 99214

== ENCOUNTER → 2022-10-10 11:42 | Outpatient (BNVA) | payer OTHER, SELFPAY | PROVIDERS: PCP Internal Medicine; Visit Provider Surgery ==

== ENCOUNTER 2022-10-20 08:07 | Outpatient (AMB) | payer OTHER, SELFPAY ==
--- NOTE | 2022-10-20 10:40 | MHC.PC.OV ---
Intake Visit Reasons: Headache Follow Up ~ Allergies No Known Allergies Allergy (Verified 10/20/22 10:40) Medication List - Last Reconciled 10/20/22 by Natasha Simmons MD levonorgestrel (Mirena) intrauterine mupirocin calcium 2% 1 appl topical BID sertraline 50 mg PO DAILY Tobacco use date assessed: 10/20/22 Dental Screening Dental Screen Date: 10/20/22 Did you have a dental visit in the last 12 months?: Yes Did you have a dental problem in the last 6 months where you did not have access to dental care?: No Was dental information given to patient?: Patient has dentist HPI Headache Follow Up ~ HPI Details Patient is 32-year-old female she this is a telemedicine video conference Patient had a COVID infection 3 weeks ago after that she is not feeling well, patient says that she cannot exactly explain what is happening but she feels pressure in her head and her neck feels sore usually on the left side off and on. She also keep getting small abscesses on her skin mostly in anxiety area recently patient also had steroid take biopsy on her left breast own August [address] Roger surgery [facility], after that she developed cellulitis and was treated with antibiotic. Her last visit with the surgeon was October 10. Patient says that in the past culture of abscess was done and she was told that she have methicillin-resistant Staph infection. She does not have any fever chills nausea vomiting or rashes. There is no joint swelling. I am looking her appointment with infectious disease for further evaluation. She might also benefit from immunology consultation to see if there is an immune problem causing recurrent infections. PFSH Medical History Lactating mother Threatened labor at term Asthma History of gestational diabetes Anxiety Surgical History History of incision and drainage Hx of wisdom tooth extraction Hx of dilation and curettage Family History Father Family hx-stroke History of esophageal cancer Mother Anxiety Maternal Grandmother Hx of congestive heart failure Hx of diabetes mellitus Maternal Grandfather Colon cancer Hx of diabetes mellitus Paternal Grandfather Cancer Sister Mental health disorder Maternal Aunt Substance use disorder Social History Household Members: Spouse and Children Housing: House Alcohol intake: never Patient Tobacco Use Status: Never used Tobacco e-Cigarette/Vaping Use: Never Used Second Hand Smoke Exposure: No service: No Current occupational status: employed Gender identity: Female Cognitive needs: No Hearing needs: No Vision needs: No Female Reproductive History Menstrual Age of Menarche: 16 Questionnaire Thrive Questionnaire Date Thrive assessed: 08/17/21 AUDIT C Alcohol Use Questionnaire (AUDIT-C) 1. How often do you have a drink containing alcohol?: Never 3. How often do you have six or more drinks on one occasion?: Never Total Score: 0 Score Reviewed/Action Taken: Yes HENOK-7 AMB Questionnaire HENOK-7 Date HENOK - 7 assessed: 08/17/21 Source: Developed by Drs. Americo Gong, Saloni Ordoñez, Constantino Pantoja and colleagues, with an educational cherry from [employer]. Review of Systems Const Denies chills and Denies fever(s) ENT Denies epistaxis and Denies nasal discharge Card Denies chest pain Resp Denies chest congestion, Denies cough and Denies hemoptysis GI Denies diarrhea and Denies nausea Skin/Breast Denies rash Neuro Reports no additional complaints Psych Reports no additional complaints Endo Reports no additional complaints Physical exam (Primary Care) Tobacco/Smoking Status: Tobacco use Status Tobacco use date assessed 10/20/22 10/20/22 10:41 Patient Tobacco Use Status Never used Tobacco 10/20/22 10:41 e-Cigarette/Vaping Use Never Used 10/20/22 10:41 Thrive Assessment: Date of Thrive Assessment Date Thrive assessed 08/17/21 10/20/22 10:41 Telehealth Telehealth Location of provider rendering services: practice address Location of patient: address on file Patient Identification confirmed using: Name, : Yes Telehealth method: video Patient verbally consented to treatment: Yes Patient verbally consented to billing insurance company: Yes Patient informed of any privacy concerns related to visit: Yes Assessment and Plan Assessment & Plan (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 She also keep getting small abscesses on her skin mostly in anxiety area recently patient also had steroid take biopsy on her left breast own August [address] Roger surgery [facility], after that she developed cellulitis and was treated with antibiotic. Her last visit with the surgeon was October 10. Patient says that in the past culture of abscess was done and she was told that she have methicillin-resistant Staph infection. She does not have any fever chills nausea vomiting or rashes. There is no joint swelling. I am looking her appointment with infectious disease for further evaluation. She might also benefit from immunology consultation to see if there is an immune problem causing recurrent infections. 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
== END 2022-10-20 16:39 | disposition home or self-care (01) ==
LOC: HO.HMGC 08:07
PROVIDERS: PCP Internal Medicine; Visit Provider Internal Medicine
DX: D82.4 Hyperimmunoglobulin E [IgE] syndrome (principal); U09.9 Post COVID-19 condition, unspecified
CPT/HCPCS: 99214

== ENCOUNTER 2022-10-21 12:58 | Outpatient (AMB) | payer OTHER, SELFPAY ==
--- NOTE | 2022-10-21 13:01 | MHC.OFFVIS ---
Intake Vital Signs 10/21/22 13:03 Height 5 ft 3 in Weight 138 lb 14.259 oz BMI 24.6 BP 114/82 Blood Pressure Location Lt brachial Position Sitting Pulse 88 Intake Visit Reasons: Heart Rate (prev HS pt) Allergies No Known Allergies Allergy (Verified 10/21/22 13:11) Medication List - Last Reconciled 10/21/22 by Melly Parker, [employer] levonorgestrel (Mirena) intrauterine mupirocin calcium 2% 1 appl topical BID sertraline 50 mg PO DAILY HPI Heart Rate (prev HS pt) HPI Details Ladi is a 32 yr old female with no cardiac history who present for evaluation of heart palpitations. She was last seen in our office 07/15/19 for atypical chest discomfort. Today she states she has noticed more rapid heartbeats in the recent months which she feels is atypical for her. She describes having illness with MRSA and then COVID over the summer. When she does physical activity she feels that her heart is pounding. She has a watch which tells her her heart rate is elevated. Heart rate will slow down with rest and relaxation. She has no dizziness, presyncope, syncope, falls. She has some mild shortness of breath with exertion at times. No chest discomfort at rest or with activity. No recent medication changes. She drinks 1 caffeinated beverage per day. No routine exercise. No prior cardiac diagnosis. [facility] Medical History Lactating mother Threatened labor at term Asthma History of gestational diabetes Anxiety Surgical History History of incision and drainage Hx of wisdom tooth extraction Hx of dilation and curettage Family History Father Family hx-stroke History of esophageal cancer Mother Anxiety Maternal Grandmother Hx of congestive heart failure Hx of diabetes mellitus Maternal Grandfather Colon cancer Hx of diabetes mellitus Paternal Grandfather Cancer Sister Mental health disorder Maternal Aunt Substance use disorder Social History Household Members: Spouse and Children Housing: House Alcohol intake: never Patient Tobacco Use Status: Never used Tobacco e-Cigarette/Vaping Use: Never Used Second Hand Smoke Exposure: No service: No Current occupational status: employed Gender identity: Female Cognitive needs: No Hearing needs: No Vision needs: No Female Reproductive History Menstrual Age of Menarche: 16 Review of Systems Const All systems reviewed & are unremarkable except as noted in HPI and below Card Reports rapid heart rate, Reports palpitations and Reports dyspnea on exertion Resp Reports dyspnea on exertion Endo Reports palpitations Physical Exam Vital Signs: Last Vital Signs Pulse 88 10/21/22 13:03 BP 114/82 10/21/22 13:03 BMI result Body Mass Index 24.6 Const General: cooperative, healthy appearing, comfortable and no acute distress Orientation/consciousness: patient oriented x3 HEENT Head: Yes normal to inspection Eyes Sclerae: sclerae normal Neck Neck: Yes normal visual inspection Carotids: normal carotid upstroke Chest Chest palpation & inspection: normal inspection of the chest Resp Effort & Inspection: normal respiratory effort Auscultation: clear to auscultation bilaterally, no rales, no rhonchi and no wheezes Cardio Jugular venous distension: no JVD Rate: regular rate Rhythm: regular rhythm Heart sounds: S1 normal heart sound present, S2 normal heart sound present, no murmurs and no rubs Peripheral pulses: Peripheral pulses 2+ throughout GI Inspection: Yes normal to inspection Skin General skin exam: no rashes or lesions noted Neuro General: patient oriented x3 Extrem General: Yes normal to inspection and No no pedal edema Psych Appearance: grossly normal Mental Status: mental status grossly normal Speech and movement: Normal speech and movement present Office Procedures EKG Details: Today, read by me, normal sinus rhythm, incomplete right bundle branch block, rate 88, QTC 408 millisecond [id number], Complete Assessment & Plan Assessment & Plan (1) Palpitations: Code(s): R00.2 - Palpitations Plan: Reports of recent heart palpitations in the last few months where her feels like her heart is beating faster and hard. She can feel this up into her neck. She is concerned that the rates are inappropriate for the activity she is doing. She has had illnesses over this summer including MRSA with antibiotic use and COVID. At present she is not feeling completely back to her normal self yet. She does drink 1 caffeinated beverage per day which is her norm. She has had no recent medication changes. She denies issues with stress, anxiety. Labs done on 02/24/2022 showed TSH 1.54. Lab 08/31/2022 showed hematocrit 39.6, potassium 3.8, creatinine 0.68. EKG done today showing sinus rhythm with incomplete right bundle branch block, rate 88. Right bundle branch block not reported on prior EKGs. Will obtain a Holter monitor to evaluate for any arrhythmia, inappropriate sinus tach. Will check an echocardiogram to assess for any structural heart disease. Reviewed reduction in caffeinated beverages, adequate rest, good hydration, physical activity. Cardiology follow-up in test results are available. (2) Shortness of breath: Code(s): R06.02 - Shortness of breath Plan: Mild shortness of breath at times with activity. Recently had COVID which may contribute. Lungs clear on examination and no findings to indicate fluid retention. Checking echocardiogram as above. (3) Post-COVID syndrome: Code(s): U09.9 - Post COVID-19 condition, unspecified Coding Level of Care Code New Pt Level 3 (32560) Diagnoses Palpitations R00.2 Shortness of breath R06.02 Post-COVID syndrome U09.9 CPT Codes EKG - CPT: [id number], Complete ([id number]) Time Spent (min) 22
[2022-10-21 13:03] VITALS: BP 114/82; PULSE 88; BMI 24.6
== END 2022-10-21 13:31 | disposition home or self-care (01) ==
PROVIDERS: PCP Internal Medicine; Visit Provider Nurse Practitioner Family
DX: R00.2 Palpitations (principal); R06.02 Shortness of breath; U09.9 Post COVID-19 condition, unspecified
CPT/HCPCS: 93010; 99203

== ENCOUNTER → 2022-10-21 12:58 | Outpatient (BNVA) | payer OTHER, SELFPAY | PROVIDERS: PCP Internal Medicine; Visit Provider Nurse Practitioner Family | DX: R00.2 Palpitations (principal); R06.02 Shortness of breath; U09.9 Post COVID-19 condition, unspecified | CPT/HCPCS: 93005 ==

== ENCOUNTER → 2022-10-26 10:37 | Outpatient (REF) | payer OTHER, SELFPAY ==
--- NOTE | 2022-10-26 10:41 | CA_ITS ---
Transthoracic Echocardiogram Patient (Last, First, Middle): Ladi Benites, Gender: Female Date of : 1990 Age: 32 Procedure Date: 10/26/2022 Procedure Type: Transthoracic Echocardiogram Location: OP Height: 160.02 cm Weight: 63.5 kg BSA: 1.66 m2 Heart Rate: bpm BP: 110 / 75 mmHg Insurance Biller: SB Referring MD: Melly Parker [employer] SYSTEMS ADVISORTerry Symptoms: R00.2 - Palpitations Study Quality: Adequate ECG Rhythm: Sinus Conclusions: - The left ventricular systolic function is normal. The calculated ejection fraction is 67% by biplane method. - No obvious valvular pathology seen on this study. Findings Left Ventricle Normal left ventricular cavity size. There is normal left ventricular wall thickness. The left ventricular systolic function is normal. The calculated ejection fraction is 67% by biplane method. There is no evidence of regional wall motion abnormalities. Diastolic function is normal for age. Right Ventricle Normal right ventricular cavity size and systolic function. Atria Both atria are normal in size. Aortic Valve There is a normal trileaflet aortic valve. There is no aortic valve stenosis. There is no aortic valve regurgitation. Mitral Valve The mitral valve appears normal. There is trace mitral valve regurgitation. There is no mitral valve stenosis. Pulmonic Valve The pulmonic valve is likely normal. Tricuspid Valve Normal tricuspid valve structure. There is trace tricuspid valve regurgitation. There is no evidence of pulmonary hypertension. Great Vessels The asc aorta is normal in size. Venous The inferior vena cava is normal in size and collapses greater than 50% with inspiration. Pericardium/Pleural There is no evidence of pericardial effusion. Prior Study Comparison No prior study available for comparison. Recommendations, Care & Conclusions No obvious valvular pathology seen on this study. Measurements 2D Linear Measurements IVSd: 0.99 0.6-0.9/0.6-1.0 cm LVIDd: 3.90 3.9-5.3/4.2-5.9 cm LVIDd Index: 2.35 2.4-3.2/2.2-3.1 cm/m2 LVIDs: 2.12 2.0-3.6 cm LVPWd: 1.05 0.7-1.1 cm Ao Root: 3.10 2.1-3.5 cm LA Diam: 2.70 2.7-3.8/3.0-4.0 cm LAIDs Index: 1.63 1.5-2.3 cm/m2 LV Mass: 155.84 67-162/88-224 g LV Mass Index: 93.88 43-95/49-115 g/m2 LVOT Diam: 1.90 3.0+(-)1.3 cm 2D Systolic Function EF 4C: 61.70 >55% EF 2C: 69.60 >55% EF BiP: 66.50 >55% Mitral Valve MV Pk E: 0.78 MV PK A: 0.68 MV Decel Time: 182.00 E/A: 1.10 E'Lateral: 11.20 E'Medial: 10.70 E/E' Med: 7.30 E/E' Lat: 6.90 PHT: 53.00 MVA PHT: 4.15 Decel Bath: 4.27 Aortic Valve AoV Pk Idris: 1.14 AoV Mn Idris: 0.80 AoV VTI: 0.23 AoV Pk Grad: 5.00 Aov Mn Grad: 3.00 CONSTANTIN Cont.VTI: 2.34 LVOT LVOT Pk Idris: 0.93 LVOT Mn Idris: 0.66 LVOT VTI: 0.19 LVOT Pk Grad: 3.00 LVOT Mn Grad: 2.00 LVOT Diam: 1.90 LVOT Area: 2.84 Diastolic Function MV Pk E: 0.78 MV Pk A: 0.68 E/A: 1.10 E'Medial: 10.70 E/E' Med: 7.30 E' Laterial: 11.20 E/E' Lat: 6.90 Right Ventricle TAPSE (mm): 24.00 TVS' Idris: 15.00 Tricuspid Valve TR Pk Idris: 1.83 TR Pk Grad: 13.00 RA Press: 3.00 RVSP: 16.00 Great Vessels Aorta Ao Root-2D: 3.10 2.0-3.7 cm Ao Asc: 2.70 2.1-3.4 cm Pulmonary Valve PV Pk Idris: 0.95 Peak PV Grad: 4.00 Updated in Other Vendor System with Status of Final Dain Verduzco MD electronically signed on 10/27/2022 9:09:19 AM with status of Final
--- NOTE | 2022-10-26 10:41 | HM_ITS ---
* Total monitoring time 3 days. * Underlying rhythm is sinus. Average ventricular rate 78/Min. Range 46 to 176/Min. About 14% of the time, rate greater than 100/Min. * Extremely rare supraventricular and ventricular ectopy. * No significant bradycardia or heart block. * Symptoms in patient diary including rapid/fast heartbeat, chest discomfort, correlates with sinus rhythm and sinus tachycardia. MTDD
== END ==
LOC: HO.CARD 10:37
PROVIDERS: Visit Provider Nurse Practitioner Family
DX: R00.2 Palpitations (principal); R06.02 Shortness of breath; I45.10 Unspecified right bundle-branch block
CPT/HCPCS: 93242; 93306

== ENCOUNTER → 2022-10-26 10:41 | Outpatient (BNV) | payer OTHER, SELFPAY | PROVIDERS: Visit Provider Internal Medicine | DX: I47.1 Supraventricular tachycardia (principal) | CPT/HCPCS: 93244; 93306 ==

== ENCOUNTER 2022-11-02 14:54 | Outpatient (AMB) | payer OTHER, SELFPAY ==
--- NOTE | 2022-11-02 14:55 | A.OFFVIS_ITS ---
Intake Vital Signs 11/02/22 15:05 Height 5 ft 3 in Weight 141 lb BMI 25.0 BP 112/88 Blood Pressure Location Lt brachial Position Sitting Pulse 73 Pulse Source Pulse Oximeter Pulse Oximetry (%) 98 Intake Visit Reasons: ref.Troy Mirza Asma Allergies No Known Allergies Allergy (Verified 11/02/22 15:06) HPI ref.Troy Mirza Asma HPI Details She is here because she has rashes and wants to see ID specialist because of concern over chronic infection. Apparently she has nodular areas under arm that are red. She has no fever or chills. [facility] Medical History Lactating mother Threatened labor at term Asthma History of gestational diabetes Anxiety Surgical History History of incision and drainage Hx of wisdom tooth extraction Hx of dilation and curettage Family History Father Family hx-stroke History of esophageal cancer Mother Anxiety Maternal Grandmother Hx of congestive heart failure Hx of diabetes mellitus Maternal Grandfather Colon cancer Hx of diabetes mellitus Paternal Grandfather Cancer Sister Mental health disorder Maternal Aunt Substance use disorder Social History Household Members: Spouse and Children Housing: House Alcohol intake: never Patient Tobacco Use Status: Never used Tobacco e-Cigarette/Vaping Use: Never Used Second Hand Smoke Exposure: No service: No Current occupational status: employed Gender identity: Female Cognitive needs: No Hearing needs: No Vision needs: No Female Reproductive History Menstrual Age of Menarche: 16 Review of Systems Const All systems reviewed & are unremarkable except as noted in HPI and below Physical Exam Vital Signs: Last Vital Signs Pulse 73 11/02/22 15:05 BP 112/88 11/02/22 15:05 Pulse Ox 98 11/02/22 15:05 BMI result Body Mass Index 25.0 Const General: cooperative Orientation/consciousness: patient oriented x3 HEENT Head: Yes normal to inspection Mouth: Normal oral and palatal mucosa present Eyes General: appearance normal, both eyes and all related structures Pupils: Equal, round and reactive pupils present Resp Effort & Inspection: normal respiratory effort Cardio Rate: regular rate Rhythm: regular rhythm GI Palpation (GI): Soft to palpation and nontender General: Yes no CVA tenderness Back/Spine/Pelvis Back: no CVA tenderness Skin General skin exam: no rashes or lesions noted Neuro General: patient oriented x3 Cranial nerves: Yes CN's II-XII intact bilaterally and Yes Equal, round and reactive pupils present Extrem General: Yes normal to inspection Psych Appearance: grossly normal Assessment & Plan Assessment & Plan (1) Carbuncle and furuncle: Comment: She has had some boil area,possibly hidradenitis suppurativa. Code(s): L02.92 - Furuncle, unspecified; L02.93 - Carbuncle, unspecified Plan: Would treat with antibiotics if cellulitis to cover staph or strep such as Doxycycline ,Augmentin or Bactrim Drain abscess if needed. See Technical Training Specialist. There is no hyper IgE syndrome (this is a syndrome with lung and skin manifestations where individuals are very ill with multiple system ailments). (2) Cellulitis: Code(s): L03.90 - Cellulitis, unspecified Coding Level of Care Code New Pt Level 3 (94616) Diagnoses Carbuncle and furuncle L02.92; L02.93 Cellulitis L03.90
[2022-11-02 15:05] VITALS: BP 112/88; PULSE 73; O2SAT 98; BMI 25.0
== END 2022-11-02 15:29 | disposition home or self-care (01) ==
LOC: HO.HID 14:54
PROVIDERS: PCP Internal Medicine; Visit Provider Internal Medicine
DX: L02.92 Furuncle, unspecified (principal); L02.93 Carbuncle, unspecified; L03.90 Cellulitis, unspecified
CPT/HCPCS: 99203

== ENCOUNTER → 2022-11-02 14:54 | Outpatient (BNVA) | payer OTHER, SELFPAY | PROVIDERS: PCP Internal Medicine; Visit Provider Internal Medicine ==

== ENCOUNTER 2022-11-17 08:03 | Outpatient (AMB) | payer OTHER, SELFPAY ==
--- NOTE | 2022-11-17 08:21 | MHC.PC.OV ---
Intake Visit Reasons: Neck Pain Allergies No Known Allergies Allergy (Verified 11/17/22 08:22) Medication List - Last Reconciled 11/17/22 by Natasha Simmons MD levonorgestrel (Mirena) intrauterine sertraline 50 mg PO DAILY Tobacco use date assessed: 11/17/22 Dental Screening Dental Screen Date: 11/17/22 Did you have a dental visit in the last 12 months?: Yes Did you have a dental problem in the last 6 months where you did not have access to dental care?: No Was dental information given to patient?: Patient has dentist HPI Neck Pain HPI Details This is a telemedicine video conference Patient is complaining of feeling discomfort in her neck on the left side which has been happening since September She says that it is not pain it is more like a feeling of discomfort. I see that in the chart we have a cervical spine x-ray done February of this year which was within normal limit. She also had a thyroid test done in February which was normal. Patient is pointing close to thyroid area which is feeling the discomfort. I have ordered thyroid ultrasound to rule out any thyroid nodules, and we will be repeating the TSH level again. She has also seen Infectious Disease last month for weaker and abscesses, note was reviewed Dr. Knight has mention in the note that this is not hyper IgE syndrome. And we should treat the infection as it occurs with either Augmentin Bactrim or doxycycline. Patient also had 3 day Holter monitor done and have cardiology appointment tomorrow. Holter did not show any major findings. ON LICENSE OF [facility] Medical History Lactating mother Threatened labor at term Asthma History of gestational diabetes Anxiety Surgical History History of incision and drainage Hx of wisdom tooth extraction Hx of dilation and curettage Family History Father Family hx-stroke History of esophageal cancer Mother Anxiety Maternal Grandmother Hx of congestive heart failure Hx of diabetes mellitus Maternal Grandfather Colon cancer Hx of diabetes mellitus Paternal Grandfather Cancer Sister Mental health disorder Maternal Aunt Substance use disorder Social History Household Members: Spouse and Children Housing: House Alcohol intake: never Patient Tobacco Use Status: Never used Tobacco e-Cigarette/Vaping Use: Never Used Second Hand Smoke Exposure: No service: No Current occupational status: employed Gender identity: Female Cognitive needs: No Hearing needs: No Vision needs: No Female Reproductive History Menstrual Age of Menarche: 16 Questionnaire PHQ-9 Over the last 2 weeks, how often have you been bothered by any of the following problems? 1. Little interest or pleasure in doing things: not at all 2. Feeling down, depressed, or hopeless: not at all 3. Trouble falling or staying asleep, or sleeping too much: several days 4. Feeling tired or having little energy: more than half the days 5. Poor appetite or overeating: not at all 6. Feeling bad about yourself - or that you are a failure or have let yourself or your family down: not at all 7. Trouble concentrating on things, such as reading the newspaper or watching television: not at all 8. Moving or speaking so slowly that other people could have noticed. Or the opposite - being so fidgety or restless that you have been moving around a lot more than usual: not at all 9. Thoughts that you would be better off or of hurting yourself in some way: not at all Total score: 3 Depression Screening Interpretation: Negative Depression Screening Done: Yes 10270 - PHQ-9 Billing: Yes Source: Developed by Drs. Americo Gong, Constantino Dover and colleagues, with an educational cherry from [employer]. Thrive Questionnaire Date Thrive assessed: 08/17/21 AUDIT C Alcohol Use Questionnaire (AUDIT-C) 1. How often do you have a drink containing alcohol?: Never 3. How often do you have six or more drinks on one occasion?: Never Total Score: 0 Score Reviewed/Action Taken: Yes HENOK-7 AMB Questionnaire HENOK-7 Date HENOK - 7 assessed: 08/17/21 Source: Developed by Drs. Americo Gong, Constantino Dover and colleagues, with an educational cherry from [employer]. Review of Systems Const Denies chills and Denies fever(s) ENT Denies epistaxis and Denies nasal discharge Card Denies chest pain Resp Denies chest congestion, Denies cough and Denies hemoptysis GI Denies diarrhea and Denies nausea Skin/Breast Denies rash Neuro Reports no additional complaints Psych Reports no additional complaints Endo Reports no additional complaints Physical exam (Primary Care) Tobacco/Smoking Status: Tobacco use Status Tobacco use date assessed 11/17/22 11/17/22 08:22 Patient Tobacco Use Status Never used Tobacco 11/17/22 08:22 e-Cigarette/Vaping Use Never Used 11/17/22 08:22 PHQ-9: PHQ-9 Score PHQ-9: Total score 3 11/17/22 09:29 Depression Screening Interpretation: Negative Thrive Assessment: Date of Thrive Assessment Date Thrive assessed 08/17/21 11/17/22 08:22 Telehealth Telehealth Location of provider rendering services: practice address Location of patient: address on file Patient Identification confirmed using: Name, : Yes Telehealth method: video Patient verbally consented to treatment: Yes Patient verbally consented to billing insurance company: Yes Patient informed of any privacy concerns related to visit: Yes Assessment and Plan Assessment & Plan (1) Discomfort of neck: Code(s): M54.2 - Cervicalgia (2) Thyroid disorder screening: Code(s): Z13.29 - Encounter for screening for other suspected endocrine disorder (3) Palpitations: Code(s): R00.2 - Palpitations (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 I see that in the chart we have a cervical spine x-ray done February of this year which was within normal limit. She also had a thyroid test done in February which was normal. Patient is pointing close to thyroid area which is feeling the discomfort. I have ordered thyroid ultrasound to rule out any thyroid nodules, and we will be repeating the TSH level again. She has also seen Infectious Disease last month for weaker and abscesses, note was reviewed Dr. Knight has mention in the note that this is not hyper IgE syndrome. And we should treat the infection as it occurs with either Augmentin Bactrim or doxycycline. Patient also had 3 day Holter monitor done and have cardiology appointment tomorrow. Holter did not show any major findings. how ever it shows HR any where from 46 to 176 Orders: Orders US biopsy thyroid Today M54.2 - Cervicalgia, R00.2 - Palpitations, Z13.29 - Encounter for screening for other suspected endocrine disorder TSH reflex Free T4 Today M54.2 - Cervicalgia, R00.2 - Palpitations, Z13.29 - Encounter for screening for other suspected endocrine disorder Coding Level of Care Code Tele Est Pt Level 4 (87567) Diagnoses Discomfort of neck M54.2 Thyroid disorder screening Z13.29 Palpitations R00.2 Recurring cold staphylococcal abscesses D82.4 Time Spent (min) 30 Comment 7 prep, 16 with patient, 7 charting/ coordination of care
== END 2022-11-17 12:28 | disposition home or self-care (01) ==
LOC: HO.HMGC 08:03
PROVIDERS: PCP Internal Medicine; Visit Provider Internal Medicine
DX: M54.2 Cervicalgia (principal); Z13.29 Encounter for screening for other suspected endocrine disorder; R00.2 Palpitations; D82.4 Hyperimmunoglobulin E [IgE] syndrome
CPT/HCPCS: 99214

== ENCOUNTER 2022-11-17 13:11 | Outpatient (REF) | payer OTHER, SELFPAY | END 2022-11-17 13:12 | disposition home or self-care (01) | LOC: HO.LAB 13:11 | PROVIDERS: PCP Internal Medicine; Visit Provider Internal Medicine | DX: Z13.29 Encounter for screening for other suspected endocrine disorder (principal); M54.2 Cervicalgia; R00.2 Palpitations | CPT/HCPCS: 36415; 84443 ==

== ENCOUNTER 2022-11-18 13:28 | Outpatient (AMB) | payer OTHER, SELFPAY ==
[2022-11-18 13:29] VITALS: BP 114/82; PULSE 96; BMI 24.8
--- NOTE | 2022-11-18 13:29 | MHC.OFFVIS ---
Intake Vital Signs 11/18/22 13:29 Height 5 ft 3 in Weight 140 lb 3.424 oz BMI 24.8 BP 114/82 Blood Pressure Location Lt brachial Position Sitting Pulse 96 Pulse Source Pulse Oximeter Intake Visit Reasons: 1M follow up Intake Note: 1 m f/u felling some palpitations Senior Assistant Manager Required: No Allergies No Known Allergies Allergy (Verified 11/18/22 13:34) Medication List - Last Reconciled 11/18/22 by Melly Parker, MAINTENANCE HELPER-C levonorgestrel (Mirena) intrauterine sertraline 50 mg PO DAILY HPI 1M follow up HPI Details Ladi is a 32-year-old female with no cardiac history who is being evaluated for heart palpitations. She recently underwent an echocardiogram and Holter monitor and now presents for follow-up. Today she reports that she continues to feel episodes where her heart is being fast. There is no clear sudden start and stop of her palpitation. She notices her heart is pounding during physical activity. No dizziness, presyncope, syncope, falls. Mild shortness of breath with exertion at times, nothing to concerning. No chest discomfort at rest or with activity. No PND, orthopnea or edema. Drinks 1 caffeinated beverage daily. [facility] Medical History Lactating mother Threatened labor at term Asthma History of gestational diabetes Anxiety Surgical History History of incision and drainage Hx of wisdom tooth extraction Hx of dilation and curettage Family History Father Family hx-stroke History of esophageal cancer Mother Anxiety Maternal Grandmother Hx of congestive heart failure Hx of diabetes mellitus Maternal Grandfather Colon cancer Hx of diabetes mellitus Paternal Grandfather Cancer Sister Mental health disorder Maternal Aunt Substance use disorder Social History Household Members: Spouse and Children Housing: House Alcohol intake: never Patient Tobacco Use Status: Never used Tobacco e-Cigarette/Vaping Use: Never Used Second Hand Smoke Exposure: No service: No Current occupational status: employed Gender identity: Female Cognitive needs: No Hearing needs: No Vision needs: No Female Reproductive History Menstrual Age of Menarche: 16 Review of Systems Const All systems reviewed & are unremarkable except as noted in HPI and below ENT Reports dizziness Card Denies chest pain, Denies chest pain at rest, Denies chest pain with activity, Reports rapid heart rate, Denies pedal edema, Denies edema, Denies leg edema, Denies lightheadedness, Denies palpitations, Denies dyspnea, Denies dyspnea on exertion and Denies orthopnea Resp Denies cough, Denies dyspnea and Denies dyspnea on exertion GI Denies hematochezia and Denies change in stool character Musc Denies abnormal gait, Denies limited range of motion, Denies muscle cramps, Denies muscle weakness, Denies numbness, Denies radiating pain into limb, Denies stiffness and Denies tingling Neuro Denies abnormal gait, Reports dizziness, Denies numbness and Denies tingling Endo Denies palpitations Physical Exam Vital Signs: Last Vital Signs Pulse 96 11/18/22 13:29 BP 114/82 11/18/22 13:29 BMI result Body Mass Index 24.8 Const General: cooperative, healthy appearing, comfortable and no acute distress Orientation/consciousness: patient oriented x3 HEENT Head: Yes normal to inspection Eyes Sclerae: sclerae normal Neck Neck: Yes normal visual inspection Carotids: normal carotid upstroke Chest Chest palpation & inspection: normal inspection of the chest Resp Effort & Inspection: normal respiratory effort Auscultation: clear to auscultation bilaterally, no rales, no rhonchi and no wheezes Cardio Jugular venous distension: no JVD Rate: regular rate Rhythm: regular rhythm Heart sounds: S1 normal heart sound present, S2 normal heart sound present, no murmurs and no rubs Peripheral pulses: Peripheral pulses 2+ throughout GI Inspection: Yes normal to inspection Skin General skin exam: no rashes or lesions noted Neuro General: patient oriented x3 Extrem General: Yes normal to inspection and No no pedal edema Psych Appearance: grossly normal Mental Status: mental status grossly normal Speech and movement: Normal speech and movement present Assessment & Plan Assessment & Plan (1) Palpitations: Code(s): R00.2 - Palpitations Plan: Reports of recent heart palpitations in the last few months where her feels like her heart is beating faster and hard. She can feel this up into her neck. She is concerned that the rates are inappropriate for the activity she is doing. She has had illnesses over this past summer including MRSA with antibiotic use and COVID. At present she is not feeling completely back to her normal self yet. She does drink 1 caffeinated beverage per day which is her norm. She has had no recent medication changes. She denies issues with stress, anxiety. Labs done on 02/24/2022 showed TSH 1.54. Lab 08/31/2022 showed hematocrit 39.6, potassium 3.8, creatinine 0.68. EKG done last visit showing sinus rhythm with incomplete right bundle branch block, rate 88. Right bundle branch block not reported on prior EKGs. Holter monitor done 10/26/2022 for 3 days shows sinus rhythm with average heart rate 78, heart rate range 46 to 176, rare ventricular and supraventricular ectopy, 14% of the time heart rate greater than 100. Echocardiogram done 10/26/2022 showed EF 67%, no valve abnormalities. Reviewed findings with her. She believe she felt her heart palpitations while wearing the Holter monitor. Offered reassurance that no concerning findings were identified.. Reviewed reduction in caffeinated beverages, adequate rest, good hydration, physical activity. She will continue to monitor symptoms. If she continues with concerning palpitations then will order a 30 day cardiac event monitor. At present cardiology office visit will be as needed. (2) Shortness of breath: Code(s): R06.02 - Shortness of breath Plan: Mild shortness of breath at times with activity. Recently had COVID which may contribute. Lungs clear on examination and no findings to indicate fluid retention. Echocardiogram with normal EF. 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
== END 2022-11-18 13:50 | disposition home or self-care (01) ==
PROVIDERS: PCP Internal Medicine; Visit Provider Nurse Practitioner Family
DX: R00.2 Palpitations (principal); R06.02 Shortness of breath; U09.9 Post COVID-19 condition, unspecified
CPT/HCPCS: 99213

== ENCOUNTER → 2022-11-18 13:28 | Outpatient (BNVA) | payer OTHER, SELFPAY | PROVIDERS: PCP Internal Medicine; Visit Provider Nurse Practitioner Family ==

== ENCOUNTER 2022-11-28 10:29 | Outpatient (REF) | payer OTHER, SELFPAY ==
--- NOTE | ~2022-11-28 | US_ITS ---
EXAMINATION: US THYROID CLINICAL INFORMATION: Encounter for screening for other suspected endocrine disorder. COMPARISON: None available. TECHNIQUE: Linear transducer andrews-scale and color Doppler examination with attention to the region of the thyroid. FINDINGS: SIZE: Measurements of the thyroid lobes and nodules are given in sagittal, anteroposterior and transverse dimensions respectively. Right Thyroid Lobe: 5.3 x 1.6 x 1.5 cm, volume 6.6 mL. Parenchyma: The gland echotexture is homogeneous. Thyroid vascularity is normal. Left Thyroid Lobe: 4.3 x 1.4 x 1.7 cm, volume 5.1 mL. Parenchyma: The gland echotexture is homogeneous. Thyroid vascularity is normal. Isthmus: 0.7 cm in maximum AP dimension. Estimated total number of nodules greater than or equal to 1 cm: 0. Washcloth Folder nodules are described as follows: 1. Location: Isthmus. Size: 0.6 x 0.4 x 0.6 cm, volume 0.08 mL. Nodule characteristics: Composition: Mixed cystic and solid (1). Echogenicity: Very hypoechoic (3). Shape: Not taller than wide (0). Margins: Ill-defined (0). Echogenic Foci: None (0). ACR TI-RADS total points: 4 ACR TI-RADS category: 4 NODES: No lymphadenopathy is seen in the tissue surrounding the thyroid gland. US/US thyroid IMPRESSION: 0.6 cm TR 4 thyroid nodule ACR TI-RADS RECOMMENDATION REFERENCE: Ultrasound-guided fine-needle aspiration, followup ultrasound, no further follow up. * TR1 (0 point) and TR2 (2 points): No FNA or follow up. * TR3 (3 points): FNA if more than or equal to 2.5 cm in maximum dimension, followup ultrasound in 1, 3 and 5 years if 1.5 to 2.4 cm in maximum dimension. * TR4 (4-6 points): FNA if more than or equal to 1.5 cm in maximum dimension, followup ultrasound in 1, 2, 3 and 5 years if 1 to 1.4 cm in maximum dimension. * TR5 (more than or equal to 7 points): FNA if more than or equal to 1 cm in maximum dimension, followup ultrasound every year for 5 years if 0.5 to 0.9 cm in maximum dimension. * TR3, TR4 or TR5 nodules that are below the size threshold for followup receive no follow up.
== END 2022-11-28 10:30 | disposition home or self-care (01) ==
LOC: HO.US 10:29
PROVIDERS: PCP Internal Medicine; Visit Provider Internal Medicine
DX: Z13.29 Encounter for screening for other suspected endocrine disorder (principal); M54.2 Cervicalgia; R00.2 Palpitations
CPT/HCPCS: 76536

== ENCOUNTER 2022-12-13 14:32 | Outpatient (AMB) | payer OTHER, SELFPAY ==
[2022-12-13 14:14] VITALS: BP 126/74; PULSE 95; O2SAT 99; BMI 25.0
--- NOTE | 2022-12-13 14:14 | A.OFFPC_ITS ---
Vital Signs 12/13/22 14:14 Height 5 ft 3 in Weight 141 lb BMI 25.0 BP 126/74 Blood Pressure Location Lt brachial Position Sitting Pulse 95 Pulse Source Pulse Oximeter Pulse Oximetry (%) 99 Oxygen Delivery Method Room Air Intake Visit Reasons: Neck follow up Allergies No Known Allergies Allergy (Verified 12/13/22 14:14) Medication List - Last Reconciled 12/13/22 by Natasha Simmons MD levonorgestrel (Mirena) intrauterine sertraline 50 mg PO DAILY Tobacco use date assessed: 12/13/22 Dental Screening Dental Screen Date: 12/13/22 Did you have a dental visit in the last 12 months?: Yes Did you have a dental problem in the last 6 months where you did not have access to dental care?: No Was dental information given to patient?: Patient has dentist HPI Neck follow up HPI Details Patient continued to have uncomfortable feeling left side of her neck Thyroid ultrasound shows 0.6 cm of thyroid nodule We consulted endocrinology who thinks that we can monitor the thyroid nodule and if it increases to 1 cm then she can sent over for biopsy Patient also want to have a UA done since morning she is having little discomfort right side suprapubic UA shows no signs of infection Patient says that she has a family history of also facial cancer in her father when he was 40 years of age I have offered a referral to Gastroenterology which she has declined at this time. [facility] Medical History Lactating mother Threatened labor at term Asthma History of gestational diabetes Anxiety Surgical History History of incision and drainage Hx of wisdom tooth extraction Hx of dilation and curettage Family History Father Family hx-stroke History of esophageal cancer Mother Anxiety Maternal Grandmother Hx of congestive heart failure Hx of diabetes mellitus Maternal Grandfather Colon cancer Hx of diabetes mellitus Paternal Grandfather Cancer Sister Mental health disorder Maternal Aunt Substance use disorder Social History Household Members: Spouse and Children Housing: House Alcohol intake: never Patient Tobacco Use Status: Never used Tobacco e-Cigarette/Vaping Use: Never Used Second Hand Smoke Exposure: No service: No Current occupational status: employed Gender identity: Female Cognitive needs: No Hearing needs: No Vision needs: No Female Reproductive History Menstrual Age of Menarche: 16 Questionnaire PHQ-9 Over the last 2 weeks, how often have you been bothered by any of the following problems? 1. Little interest or pleasure in doing things: not at all 2. Feeling down, depressed, or hopeless: not at all 3. Trouble falling or staying asleep, or sleeping too much: not at all 4. Feeling tired or having little energy: several days 5. Poor appetite or overeating: not at all 6. Feeling bad about yourself - or that you are a failure or have let yourself or your family down: not at all 7. Trouble concentrating on things, such as reading the newspaper or watching television: not at all 8. Moving or speaking so slowly that other people could have noticed. Or the opposite - being so fidgety or restless that you have been moving around a lot more than usual: not at all 9. Thoughts that you would be better off or of hurting yourself in some way: not at all Total score: 1 Depression Screening Interpretation: Negative Depression Screening Done: Yes 11409 - PHQ-9 Billing: Yes Source: Developed by Drs. Americo Gong, Saloni Ordoñez, Constantion Pantoja and colleagues, with an educational cherry from [employer]. Thrive Questionnaire Date Thrive assessed: 08/17/21 AUDIT C Alcohol Use Questionnaire (AUDIT-C) 1. How often do you have a drink containing alcohol?: Never 3. How often do you have six or more drinks on one occasion?: Never Total Score: 0 Score Reviewed/Action Taken: Yes HENOK-7 AMB Questionnaire HENOK-7 Date HENOK - 7 assessed: 12/13/22 Feeling nervous, anxious, or on edge: 1 = Several days Not being able to stop or control worryin = Not at all Worrying too much about different things: 1 = Several days Trouble relaxin = Several days Being so restless that it is hard to sit still: 1 = Several days Becoming easily annoyed or irritable: 0 = Not at all Feeling afraid as if something awful might happen: 1 = Several days Total HENOK-7 score (0-4 normal; 5-9 mild; 10-14 moderate; 15-21 severe): 5 Source: Developed by Drs. Americo Gong, Saloni Ordoñez, Constantino Pantoja and colleagues, with an educational cherry from [employer]. HENOK-7 Assessment Billing HENOK-7 Assessment Tool: HENOK-7 Assessment 00599 Review of Systems Const Denies chills and Denies fever(s) ENT Denies epistaxis and Denies nasal discharge Card Denies chest pain Resp Denies chest congestion, Denies cough and Denies hemoptysis GI Denies diarrhea and Denies nausea Skin/Breast Denies rash Neuro Reports no additional complaints Psych Reports no additional complaints Endo Reports no additional complaints Physical exam (Primary Care) Vital Signs: Last Vital Signs Pulse 95 12/13/22 14:14 BP 126/74 12/13/22 14:14 Pulse Ox 99 12/13/22 14:14 Oxygen Delivery Method Room Air 12/13/22 14:14 BMI result Body Mass Index 25.0 Tobacco/Smoking Status: Tobacco use Status Tobacco use date assessed 12/13/22 12/13/22 14:14 Patient Tobacco Use Status Never used Tobacco 12/13/22 14:14 e-Cigarette/Vaping Use Never Used 12/13/22 14:14 PHQ-9: PHQ-9 Score PHQ-9: Total score 1 12/13/22 14:46 Depression Screening Interpretation: Negative Thrive Assessment: Date of Thrive Assessment Date Thrive assessed 08/17/21 12/13/22 14:14 Const General: cooperative, comfortable and no acute distress Orientation/consciousness: patient oriented x3 HENMS Head: Yes normocephalic Eyes General: appearance normal, both eyes and all related structures Neck Neck: Yes supple Resp Effort & Inspection: normal respiratory effort, no cough and no stridor Cardio Rhythm: regular rhythm Heart sounds: S1 normal heart sound present and S2 normal heart sound present GI Other: Mild suprapubic discomfort right Skin General skin exam: turgor normal Neuro General: patient oriented x3, tone normal and moves all extremities Extrem Right lower extremity: no edema Left lower extremity: no edema Results AMB Urinalysis, Automated UA Leukoctes 0 Tamela/uL Last Edit by Tiana Dean CMA on 12/13/22 14:47 UA Nitrite Negative Last Edit by Tiana Dean CMA on 12/13/22 14:47 UA Urobilinogen 0.2 mg/dL Last Edit by Tiana Dean CMA on 12/13/22 14:47 UA Protein 0 mg/dL Last Edit by Tiana Dean CMA on 12/13/22 14:47 UA pH 6.0 Last Edit by Tiana Dean, ROSA on 12/13/22 14:47 UA Blood 0 Justin/uL Last Edit by Tiana Dean CMA on 12/13/22 14:47 UA Specific Pierz 1.015 Last Edit by Tiana Dean, ROSA on 12/13/22 14:47 UA Ketone Negative Last Edit by Tiana Dean CMA on 12/13/22 14:47 UA Bilirubin 0 mg/dL Last Edit by Tiana Dean CMA on 12/13/22 14:47 UA Glucose 0 mg/dL Last Edit by Tiana Dean CMA on 12/13/22 14:47 Results Reviewed Results Reviewed: Laboratory Last Values Urine pH (Auto) 6.0 12/13/22 14:45 Specific Pierz (Auto) 1.015 12/13/22 14:45 Urine Protein (Auto) 0 mg/dL 12/13/22 14:45 Glucose (UA)(Auto) 0 mg/dL 12/13/22 14:45 Urine Ketones (Auto) Negative 12/13/22 14:45 Urine Blood (Auto) 0 Justin/uL 12/13/22 14:45 Urine Nitrite (Auto) Negative 12/13/22 14:45 Urine Bilirubin (Auto) 0 mg/dL 12/13/22 14:45 Urine Urobilinogen (Auto) 0.2 mg/dL 12/13/22 14:45 Leukocyte Esterase (Auto) 0 Tamela/uL 12/13/22 14:45 Assessment and Plan Assessment & Plan (1) Thyroid nodule: Code(s): E04.1 - Nontoxic single thyroid nodule (2) Suprapubic discomfort: Code(s): R10.2 - Pelvic and perineal pain (3) Family history of esophageal cancer: Code(s): Z80.0 - Family history of malignant neoplasm of digestive organs Plan Patient continued to have uncomfortable feeling left side of her neck Thyroid ultrasound shows 0.6 cm of thyroid nodule We consulted endocrinology who thinks that we can monitor the thyroid nodule and if it increases to 1 cm then she can sent over for biopsy Patient also want to have a UA done since morning she is having little discomfort right side suprapubic UA shows no signs of infection Patient says that she has a family history of also facial cancer in her father when he was 40 years of age I have offered a referral to Gastroenterology which she has declined at this time. Orders: Orders AMB Urinalysis Automated Today Z13.9 - Encounter for screening, unspecified Coding Level of Care Code Est Pt Level 3 (56819) Diagnoses Thyroid nodule E04.1 Suprapubic discomfort R10.2 Family history of esophageal cancer Z80.0 Additional Codes HENOK-7 Assessment Billing - HENOK-7 Assessment Tool: HENOK-7 Assessment 75346 ([id number])
== END 2022-12-13 14:39 | disposition home or self-care (01) ==
PROVIDERS: PCP Internal Medicine; Visit Provider Internal Medicine
DX: E04.1 Nontoxic single thyroid nodule (principal); R10.2 Pelvic and perineal pain; Z80.0 Family history of malignant neoplasm of digestive organs; Z13.9 Encounter for screening, unspecified
CPT/HCPCS: 81003; 99213

== ENCOUNTER 2022-12-20 10:59 | Outpatient (AMB) | payer OTHER, SELFPAY ==
[2022-12-20 11:07] VITALS: BP 106/68; BMI 24.6
--- NOTE | 2022-12-20 11:07 | A.OFFVIS_ITS ---
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 It's intermittent in nature lasting few seconds and occurs few times a day. it is not associated with constipation, no dysuria, no frequency or incontinence, no n/v, no feverishness. No vaginal discharge PFSH Medical History Lactating mother Threatened labor at term Asthma History of gestational diabetes Anxiety Surgical History History of incision and drainage Hx of wisdom tooth extraction Hx of dilation and curettage Family History Father Family hx-stroke History of esophageal cancer Mother Anxiety Maternal Grandmother Hx of congestive heart failure Hx of diabetes mellitus Maternal Grandfather Colon cancer Hx of diabetes mellitus Paternal Grandfather Cancer Sister Mental health disorder Maternal Aunt Substance use disorder Social History Household Members: Spouse and Children Housing: House Alcohol intake: never Patient Tobacco Use Status: Never used Tobacco e-Cigarette/Vaping Use: Never Used Second Hand Smoke Exposure: No service: No Current occupational status: employed Gender identity: Female Cognitive needs: No Hearing needs: No Vision needs: No Female Reproductive History Menstrual Age of Menarche: 16 control method: progestin IUCD Total pregnancies: 3 Full term: 2 Number of Living Children: 2 Ab spontaneous: 1 Date of last pap smear: 04/06/21 (negative) Review of Systems Const All systems reviewed & are unremarkable except as noted in HPI and below Physical Exam Vital Signs: Last Vital Signs BP 106/68 12/20/22 11:07 BMI result Body Mass Index 24.6 General: Yes no CVA tenderness External Female Exam: normal external appearance and normal appearance of the urethra Speculum Exam - Vagina: normal appearance of the vagina, normal palpation, no lesions and no masses Speculum Exam - Cervix: normal appearance of the cervix, normal palpation, no lesions, no masses and nontender Bimanual exam- vagina & uterus: normal bimanual exam, normal palpation, uterine size normal, normal palpation, uterine shape normal, No Cervical tenderness present and non-tender Bimanual Exam- Adnexa, other: normal adnexae Back/Spine/Pelvis Back: no CVA tenderness Results AMB Test Urine AMB Test Urine Negative Last Edit by ROB Ramirez on 12/20/22 11:19 AMB Urinalysis, Automated UA Leukoctes 0 Tamela/uL Last Edit by ROB Ramirez on 12/20/22 11:19 UA Nitrite Negative Last Edit by Seng Chu Francis on 12/20/22 11:19 UA Urobilinogen 0 mg/dL Last Edit by Seng Chu Fracnis on 12/20/22 11:19 UA Protein 0 mg/dL Last Edit by Seng Chu [facility] on 12/20/22 11:19 UA pH 5.5 Last Edit by Seng Chu Francis on 12/20/22 11:19 UA Blood 0.5 Justin/uL Last Edit by Seng Chu [facility] on 12/20/22 11:19 UA Specific [place] 1.025 Last Edit by Seng Chu Francis on 12/20/22 11: 19 UA Ketone Negative Last Edit by Seng Chu Francis on 12/20/22 11:19 UA Bilirubin 0 mg/dL Last Edit by Seng Chu [facility] on 12/20/22 11:19 UA Glucose 0 mg/dL Last Edit by Seng Chu Francis on 12/20/22 11:19 Results Reviewed Results Reviewed: Laboratory Last Values Urine pH (Auto) 5.5 12/20/22 11:17 Specific [place] (Auto) 1.025 12/20/22 11:17 Urine Protein (Auto) 0 mg/dL 12/20/22 11:17 Glucose (UA)(Auto) 0 mg/dL 12/20/22 11:17 Urine Ketones (Auto) Negative 12/20/22 11:17 Urine Blood (Auto) 0.5 Justin/uL 12/20/22 11:17 Urine Nitrite (Auto) Negative 12/20/22 11:17 Urine Bilirubin (Auto) 0 mg/dL 12/20/22 11:17 Urine Urobilinogen (Auto) 0 mg/dL 12/20/22 11:17 Leukocyte Esterase (Auto) 0 Tamela/uL 12/20/22 11:17 Tst Clinic Negative 12/20/22 11:17 Assessment & Plan Assessment & Plan (1) Pelvic pain: Code(s): R10.2 - Pelvic and perineal pain Plan: Urine test done in the office was negative. GC and chlamydia taken and pelvic ultrasound ordered. Discussed with the patient the differential diagnosis of pelvic pain including but not limited to adnexal, uterine masses, pelvic infections (PID), GI the (Irritable bowel syndrome, diverticulitis, others), musculoskeletal, myofascial pain abdominal wall , adhesions, endometriosis, psychological and others causes. Will check results and treat accordingly. All questions answered, the patient verbalized understanding. Instructed the patient to schedule follow-up appointment in 2 weeks (2) Microscopic hematuria: Code(s): R31.29 - Other microscopic hematuria Plan: Urine dip showed microscopic hematuria, will send urine for culture and repeat urine dip in 2 weeks. Instruction given to patient to schedule a 2 week urine dip follow-up. All questions answered, the patient verbalized understanding Orders: Orders AMB HCG Urine Test Today Z32.02 - Encounter for test, result negative AMB Urinalysis Automated Today R10.2 - Pelvic and perineal pain CT NG by PCR Today R10.2 - Pelvic and perineal pain, R31.29 - Other microscopic hematuria Urine Culture Today R31.9 - Hematuria, unspecified US pelvic and transvaginal Today R10.2 - Pelvic and perineal pain Coding Level of Care Code Est Pt Level 3 (74352) Diagnoses Pelvic pain R10.2 Microscopic hematuria R31.29
== END 2022-12-20 11:50 | disposition home or self-care (01) ==
LOC: HO.HWS 10:59
PROVIDERS: PCP Internal Medicine; Visit Provider Obstetrics & Gynecology
DX: R10.2 Pelvic and perineal pain (principal); R31.29 Other microscopic hematuria; Z32.02 Encounter for pregnancy test, result negative
CPT/HCPCS: 99213

== ENCOUNTER 2022-12-20 10:59 | Outpatient (REF) | payer OTHER, SELFPAY ==
[2022-12-20 18:13] LABS: CT PCR NOT DETECTED (Not Detect.); NG PCR NOT DETECTED (Not Detect.)
== END 2022-12-20 11:00 | disposition home or self-care (01) ==
LOC: HO.LNP 10:59
PROVIDERS: PCP Internal Medicine; Visit Provider Obstetrics & Gynecology
DX: R10.2 Pelvic and perineal pain (principal); R31.29 Other microscopic hematuria; R31.9 Hematuria, unspecified
CPT/HCPCS: 0353U; 81003; 81025; 87086

== ENCOUNTER 2023-01-03 08:14 | Outpatient (AMB) | payer OTHER, SELFPAY ==
--- NOTE | 2023-01-03 08:19 | A.OFFVIS_ITS ---
Intake Vital Signs 01/03/23 08:22 Height 5 ft 3 in Weight 138 lb 14.259 oz BMI 24.6 BP 118/70 Intake Visit Reasons: urine dip Allergies No Known Allergies Allergy (Verified 12/20/22 11:12) HPI HPI Comments History of Present Illness Details Presenting for repeat urine dip for microscopic hematuria. GC/CT was negative. Pelvic ultrasound is scheduled in few days [facility] Medical History Lactating mother Threatened labor at term Asthma History of gestational diabetes Anxiety Surgical History History of incision and drainage Hx of wisdom tooth extraction Hx of dilation and curettage Family History Father Family hx-stroke History of esophageal cancer Mother Anxiety Maternal Grandmother Hx of congestive heart failure Hx of diabetes mellitus Maternal Grandfather Colon cancer Hx of diabetes mellitus Paternal Grandfather Cancer Sister Mental health disorder Maternal Aunt Substance use disorder Social History Household Members: Spouse and Children Housing: House Alcohol intake: never Patient Tobacco Use Status: Never used Tobacco e-Cigarette/Vaping Use: Never Used Second Hand Smoke Exposure: No service: No Current occupational status: employed Gender identity: Female Cognitive needs: No Hearing needs: No Vision needs: No Female Reproductive History Menstrual Age of Menarche: 16 Review of Systems Const All systems reviewed & are unremarkable except as noted in HPI and below Reports as per HPI and Reports no additional complaints GI Reports no additional complaints Reports no additional complaints Assessment & Plan Assessment & Plan (1) Microscopic hematuria: Code(s): R31.29 - Other microscopic hematuria Plan: Repeat urine dip in the office was negative for microscopic hematuria. The patient was reassured. Instructions given the patient to schedule ultrasound follow-up appointment. All questions answered, the patient verbalized understanding Coding Level of Care Code Est Pt Level 3 (09360) Diagnoses Microscopic hematuria R31.29
[2023-01-03 08:22] VITALS: BP 118/70; BMI 24.6
== END 2023-01-03 08:29 | disposition home or self-care (01) ==
PROVIDERS: PCP Internal Medicine; Visit Provider Obstetrics & Gynecology
DX: R31.29 Other microscopic hematuria (principal)
CPT/HCPCS: 99213

== ENCOUNTER → 2023-01-03 08:14 | Outpatient (BNVA) | payer OTHER, SELFPAY | PROVIDERS: PCP Internal Medicine; Visit Provider Obstetrics & Gynecology | DX: R31.29 Other microscopic hematuria (principal) | CPT/HCPCS: 81002 ==

== ENCOUNTER 2023-01-06 14:39 | Outpatient (REF) | payer OTHER, SELFPAY ==
--- NOTE | ~2023-01-06 | US_ITS ---
EXAMINATION: US PELVIS CLINICAL INFORMATION: Pelvic and perineal pain. Last menstrual period years ago. Right pelvic pain. COMPARISON: None available. TECHNIQUE: Ultrasound of the pelvis was performed using both transabdominal and transvaginal transducers along with Doppler. Transvaginal imaging is performed due to inadequate visualization transabdominally. FINDINGS: The uterus measures 9.0 x 3.2 x 5.6 cm. No discrete fibroids are identified. IUD positioned within the endometrial cavity. Small amount of free fluid in the pelvis. Right ovary measures 3.8 x 2.5 x 3.1 cm, volume 15.4 mL. Right ovarian 3.1 x 2.0 x 2.5 cm simple cyst. Small amount of free fluid in the right adnexa. Left ovary measures 3.6 x 2.8 x 3.2 cm, volume 16.9 mm. Left ovarian 3.4 x 2.7 x 3.0 cm cyst appears simple. Small amount of free fluid in the left adnexa. US/US pelvic and transvaginal IMPRESSION: 1. IUD positioned within the endometrial cavity. 2. Right ovarian 3.1 cm and left ovarian 3.4 cm simple cysts. Small amount of free fluid in the bilateral adnexa. Gynecologic consultation recommended to determine further management. Recommend follow up ultrasound in 6-8 weeks.
== END 2023-01-06 14:40 | disposition home or self-care (01) ==
LOC: HO.US 14:39
PROVIDERS: PCP Internal Medicine; Visit Provider Obstetrics & Gynecology
DX: R10.2 Pelvic and perineal pain (principal)
CPT/HCPCS: 76830; 76856

== ENCOUNTER 2023-02-08 14:57 | Outpatient (REF) | payer OTHER, SELFPAY ==
--- NOTE | ~2023-02-08 | MM_ITS ---
EXAMINATION: MM DIAGNOSTIC DIGITAL BREAST TOMOSYNTHESIS, LEFT CLINICAL INFORMATION: Follow-up left breast after benign biopsy yielding fat necrosis with calcification and fibrosis. COMPARISON: Mammography: 07/21/2022, stereotactic left biopsy 07/26/2022. TECHNIQUE: Digital breast tomosynthesis is performed in both the craniocaudal and mediolateral oblique views along with computer-aided detection (CAD). Synthesized 2D images are generated from the tomosynthesis. FINDINGS: The breasts are heterogeneously dense, which may obscure small masses (ACR BI-RADS breast composition Category c). There are no significant masses, abnormal calcifications, or other abnormalities. Post benign biopsy clip noted in the approximately 3:00 location left breast posterior one third. No residual calcifications seen. Parenchymal pattern is unchanged from prior studies. MM/MM tomosynthesis diagnostic LT IMPRESSION: No findings suspicious for malignancy. Post benign biopsy clip 3:00 axis left breast, posterior one third. Recommend the patient resume routine screening mammography at age 42. ASSESSMENT: BI-RADS BI-RADS 2 - Benign Findings RECOMMENDATION: Mammo at 42 or earlier if clinically needed Results were provided to the patient at time of visit by the technologist.
== END 2023-02-08 14:58 | disposition home or self-care (01) ==
LOC: HO.MAMMO 14:57
PROVIDERS: PCP Internal Medicine; Visit Provider Internal Medicine
DX: Z98.890 Other specified postprocedural states (principal); R92.1 Mammographic calcification found on diagnostic imaging of breast
CPT/HCPCS: 77061; 77065

== ENCOUNTER → 2023-02-08 15:00 | Outpatient (BNV) | payer OTHER, SELFPAY | PROVIDERS: PCP Internal Medicine; Visit Provider Radiology Diagnostic Radiology | DX: R92.332 Mammographic heterogeneous density, left breast (principal) | CPT/HCPCS: 77061; 77065 ==

== ENCOUNTER 2023-02-15 08:02 | Outpatient (AMB) | payer OTHER, SELFPAY ==
--- NOTE | 2023-02-15 08:21 | A.OFFVIS_ITS ---
Intake Vital Signs 02/15/23 08:26 Height 5 ft 3 in Weight 138 lb 14.259 oz BMI 24.6 BP 108/60 Intake Visit Reasons: Ultrasound follow up Medical Physiologist Required: No Information Interpreted: non-clinical & clinical Accompanied by: Self / Same As Patient Allergies No Known Allergies Allergy (Verified 02/15/23 08:26) Is last menstrual period known: No (mirena) HPI HPI Comments History of Present Illness Details Presenting for follow-up regarding pelvic pain. The patient is doing well with no complaints, pelvic pain has completely resolved. GC/CT were negative. Urine dip was positive for microscopic hematuria urine culture was negative , follow-up repeat urine dip was negative. Pelvic ultrasound showed the following: The uterus measures 9.0 x 3.2 x 5.6 cm. No discrete fibroids are identified. IUD positioned within the endometrial cavity. Small amount of free fluid in the pelvis. Right ovary measures 3.8 x 2.5 x 3.1 cm, volume 15.4 mL. Right ovarian 3.1 x 2.0 x 2.5 cm simple cyst. Small am ount of free fluid in the right adnexa. Left ovary measures 3.6 x 2.8 x 3.2 cm, volume 16.9 mm. Left ovarian 3.4 x 2.7 x 3.0 cm cyst appears simple. Small amount of free fluid in the left adnexa. [facility] Medical History Lactating mother Threatened labor at term Asthma History of gestational diabetes Anxiety Surgical History History of incision and drainage Hx of wisdom tooth extraction Hx of dilation and curettage Family History Father Family hx-stroke History of esophageal cancer Mother Anxiety Maternal Grandmother Hx of congestive heart failure Hx of diabetes mellitus Maternal Grandfather Colon cancer Hx of diabetes mellitus Paternal Grandfather Cancer Sister Mental health disorder Maternal Aunt Substance use disorder Social History Household Members: Spouse and Children Housing: House Alcohol intake: never Patient Tobacco Use Status: Never used Tobacco e-Cigarette/Vaping Use: Never Used Second Hand Smoke Exposure: No service: No Current occupational status: employed Gender identity: Female Cognitive needs: No Hearing needs: No Vision needs: No Female Reproductive History Menstrual Age of Menarche: 16 Review of Systems Const All systems reviewed & are unremarkable except as noted in HPI and below Reports as per HPI and Reports no additional complaints GI Reports no additional complaints Reports no additional complaints Assessment & Plan Assessment & Plan (1) Pelvic pain: Code(s): R10.2 - Pelvic and perineal pain Plan: Discussed with the patient the results of the ultrasound. Instructions given the patient to call in case of recurrence of pelvic pain, fever above 100.4, nausea or vomiting or any other concerns. All questions answered, the patient verbalized understanding Coding Level of Care Code Est Pt Level 3 (57783) Diagnoses Pelvic pain R10.2
[2023-02-15 08:26] VITALS: BP 108/60; BMI 24.6
== END 2023-02-15 08:31 | disposition home or self-care (01) ==
PROVIDERS: PCP Internal Medicine; Visit Provider Obstetrics & Gynecology
DX: R10.2 Pelvic and perineal pain (principal)
CPT/HCPCS: 99213

== ENCOUNTER → 2023-02-15 08:02 | Outpatient (BNVA) | payer OTHER, SELFPAY | PROVIDERS: PCP Internal Medicine; Visit Provider Obstetrics & Gynecology ==

== ENCOUNTER 2023-03-09 14:06 | Outpatient (AMB) | payer OTHER, SELFPAY ==
[2023-03-09 14:19] VITALS: BP 90/72; PULSE 96; BMI 24.5
--- NOTE | 2023-03-09 14:19 | MHC.OFFVIS ---
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 She recently underwent an echocardiogram and Holter monitor which showed no acute findings. She presents for follow-up with ongoing symptoms. Today she reports that she has been getting ongoing heart palpitations. No sustained rapid or irregular rates. She describes that her heart is beating hard and fast. No clear sudden start and stop of the palpitation. No lightheadedness, presyncope, syncope, falls. She has mild shortness of breath with exertion which is not new. She is noticing chest heaviness which causes her much concern. She is been doing only light physical activity. She has not noticed chest discomfort brought on by activity. No PND, orthopnea or edema. Has cut out caffeinated beverages. Maintains well hydration. [facility] Medical History Lactating mother Threatened labor at term Asthma History of gestational diabetes Anxiety Surgical History History of incision and drainage Hx of wisdom tooth extraction Hx of dilation and curettage Family History Father Family hx-stroke History of esophageal cancer Mother Anxiety Maternal Grandmother Hx of congestive heart failure Hx of diabetes mellitus Maternal Grandfather Colon cancer Hx of diabetes mellitus Paternal Grandfather Cancer Sister Mental health disorder Maternal Aunt Substance use disorder Social History Household Members: Spouse and Children Housing: House Alcohol intake: never Patient Tobacco Use Status: Never used Tobacco e-Cigarette/Vaping Use: Never Used Second Hand Smoke Exposure: No service: No Current occupational status: employed Gender identity: Female Cognitive needs: No Hearing needs: No Vision needs: No Female Reproductive History Menstrual Age of Menarche: 16 Review of Systems Const All systems reviewed & are unremarkable except as noted in HPI and below ENT Denies dizziness Card Details: chest heaviness Denies chest pain, Denies chest pain at rest, Denies chest pain with activity, Reports rapid heart rate, Denies pedal edema, Denies edema, Denies leg edema, Denies lightheadedness, Reports palpitations, Denies dyspnea, Denies dyspnea on exertion and Denies orthopnea Resp Denies cough, Denies dyspnea and Denies dyspnea on exertion GI Denies hematochezia and Denies change in stool character Musc Denies abnormal gait, Denies limited range of motion, Denies muscle cramps, Denies muscle weakness, Denies numbness, Denies radiating pain into limb, Denies stiffness and Denies tingling Neuro Denies abnormal gait, Denies dizziness, Denies numbness and Denies tingling Endo Reports palpitations Physical Exam Vital Signs: Last Vital Signs Pulse 96 03/09/23 14:19 BP 90/72 03/09/23 14:19 BMI result Body Mass Index 24.5 Const General: cooperative, healthy appearing, comfortable and no acute distress Orientation/consciousness: patient oriented x3 HEENT Head: Yes normal to inspection Chest Chest palpation & inspection: normal inspection of the chest Resp Effort & Inspection: normal respiratory effort Auscultation: clear to auscultation bilaterally Cardio Jugular venous distension: no JVD Rate: regular rate Rhythm: regular rhythm Neuro General: patient oriented x3 Extrem General: Yes normal to inspection, No no pedal edema and No calf tenderness Psych Appearance: grossly normal Mental Status: mental status grossly normal Speech and movement: Normal speech and movement present Office Procedures EKG Details: Today, read by me, normal sinus rhythm, no acute ST or T-wave abnormalities, rate 89, QTC 418 millisecond [id number], Complete Assessment & Plan Assessment & Plan (1) Palpitations: Code(s): R00.2 - Palpitations Plan: Reports of heart palpitations over the last several months, where her feels like her heart is beating faster and hard. She can feel this up into her neck. She is concerned that the rates are inappropriate for the activity she is doing. She has had illnesses last summer including MRSA with antibiotic use and COVID. She denies issues with stress, anxiety. No acute findings on lab tests. EKG done last visit showing sinus rhythm with incomplete right bundle branch block, rate 88. Holter monitor done 10/26/2022 for 3 days shows sinus rhythm with average heart rate 78, heart rate range 46 to 176, rare ventricular and supraventricular ectopy, 14% of the time heart rate greater than 100. Echocardiogram done 10/26/2022 showed EF 67%, no valve abnormalities. Previously reviewed findings with her. Today she reports that she has ongoing heart palpitations and now has been experiencing heaviness her chest which is causing much concern. Will check a exercise stress test to evaluate for any ischemia, symptoms with exercise and arrhythmia. Not likely to have CAD in her young age. Holter monitor had shown no acute findings. If stress test is normal then will again offered reassurance. She is stopped all caffeinated beverages. Reviewed ongoing good hydration, getting adequate rest, increasing her physical activity. Cardiology follow-up can then be as needed. If her stress test is abnormal then further treatment will be determined. (2) Chest heaviness: Code(s): R07.89 - Other chest pain Plan: As above. New symptom for her. EKG done today showing normal sinus rhythm with no acute ST or T-wave abnormalities. Plan Time spent on chart review, documentation, interview and assessment Orders: Orders CA stress test Today R00.2 - Palpitations, R07.89 - Other chest pain Coding Level of Care Code Est Pt Level 3 (87282) Diagnoses Palpitations R00.2 Chest heaviness R07.89 CPT Codes EKG - CPT: 66509-[id number], Complete ([id number]) Time Spent (min) 22
== END 2023-03-09 15:48 | disposition home or self-care (01) ==
PROVIDERS: PCP Internal Medicine; Visit Provider Nurse Practitioner Family
DX: R00.2 Palpitations (principal); R07.89 Other chest pain
CPT/HCPCS: 93010; 99213

== ENCOUNTER → 2023-03-09 14:06 | Outpatient (BNVA) | payer OTHER, SELFPAY | PROVIDERS: PCP Internal Medicine; Visit Provider Nurse Practitioner Family | DX: R00.2 Palpitations (principal); R07.89 Other chest pain | CPT/HCPCS: 93005 ==

== ENCOUNTER → 2023-03-14 08:07 | Outpatient (REF) | payer OTHER, SELFPAY ==
--- NOTE | 2023-03-14 08:10 | CA_ITS ---
Acquisition Time: 2023-03-14 08:17:18 Total Exercise Time: 00:08:05 Test Indications: Palpitations Medications: ZOLOFT Protocol: KORY Max HR: 179 BPM 94% of Pred: 190 BPM Max BP: 130/068 mmHG Max Work Load: 10.1 METS Exercise stress test exercise 8 min 5 sec of Kory protocol achieving 94% MPHR, without shortness of breath, with 6-7/10 left chest pressure at approx the 5 min luly which went away by 7 min luly, with isolated PAC, with normotensive response to exercise, without EKG changes. Test reviewed with Dr. Smith Referred By: Melly Parker Overread By: Cesilia Alan
--- NOTE | 2023-03-14 08:10 | HM_ITS ---
* Total procedure length 30 days. Wear time 20 days. * Underlying rhythm is sinus with an average rate of 77/Min. * Low levels of supraventricular ectopy. Sinus tachycardia noted 34% of the time. * Patient activated the symptom button 20 6 times. Correlation with sinus tachycardia, PACs. MTDD
== END ==
LOC: HO.CARD 08:07
PROVIDERS: PCP Internal Medicine; Visit Provider Nurse Practitioner Family
DX: R00.2 Palpitations (principal); I45.10 Unspecified right bundle-branch block; R06.02 Shortness of breath; R07.89 Other chest pain
CPT/HCPCS: 93017; 93270

== ENCOUNTER → 2023-03-14 08:10 | Outpatient (BNV) | payer OTHER, SELFPAY | PROVIDERS: PCP Internal Medicine; Visit Provider Nurse Practitioner | DX: I47.10 Supraventricular tachycardia, unspecified (principal) | CPT/HCPCS: 93016; 93018; 93272 ==

== ENCOUNTER 2023-04-24 13:23 | Emergency (ER) | payer OTHER, SELFPAY ==
--- NOTE | ~2023-04-24 | XR_ITS ---
EXAMINATION: XR CHEST CLINICAL INFORMATION: Chest pain. COMPARISON: Chest radiograph dated 09/01/2022. TECHNIQUE: 2 views of the chest were obtained. FINDINGS: The trachea is in normal anatomic position. Heart size is normal. Both lungs are clear. Pleural spaces are clear. No pneumothorax. No acute osseous abnormality. XR/XR chest 2V IMPRESSION: No acute cardiopulmonary disease.
--- NOTE | 2023-04-24 13:26 | ECG_ITS ---
Test Reason : chest pain Blood Pressure : / mmHG Vent. Rate : 102 BPM Atrial Rate : 102 BPM P-R Int : 150 ms QRS Dur : 092 ms QT Int : 338 ms P-R-T Axes : 070 042 016 degrees QTc Int : 440 ms Sinus tachycardia Possible Left atrial enlargement Borderline ECG When compared with ECG of 09-JUL-2020 14:31, No significant change was found Referred By: Zoran Ely Electronically Signed By:LENCHO FERGUSON MD
--- NOTE | 2023-04-24 13:33 | ED_ITS ---
HPI - General Adult General Chief complaint: Upper Respiratory Symptoms Stated complaint: chest pain Time Seen by Provider: 04/24/23 13:33 Source: patient Mode of arrival: ambulatory Limitations: no limitations History of Present Illness HPI narrative: Patient is a 32 year old, assigned female at , with a history of anxiety and recent influenza, presents to the ED for a 2 hour history of chest pain. Patient describes the pain as non radiating chest tightness in the center of her chest. At the time of presentation the pain has subsided. Patient endorses associated flushing, coughing, and chest discomfort over the past week. Patient eports recently having a holter monitor for evaluation by a patient transportation driver for palpitations and potential arrhythmias. Denies headaches, fever/chills, dizziness, lightheadedness, and SOB. MD complaint: Chest pain Onset (ago): hour(s) (2) Location: chest Radiation: non-radiation Severity: mild Severity scale (1-10): 3 Quality: other (tightness) Pain Consistency: now resolved Relieving factors: none Exacerbating factors: none Associated symptoms: cough and other (flushing) Treatments prior to arrival: other (Tums (calcium carbonate)) Related Data Home Medications Medication Instructions Recorded Confirmed levonorgestrel 21 mcg/24 hours (8 intrauterine 04/01/21 03/09/23 yrs) 52 mg intrauterine device (Mirena) sertraline 50 mg tablet 50 mg PO DAILY 07/27/22 03/09/23 Allergies Allergy/AdvReac Type Severity Reaction Status Date / Time No Known Allergies Allergy Verified 03/09/23 14:21 Review of Systems 2 Constitutional: Constitutional: Reports no additional constitutional complaints, Denies chills, Denies fever(s) and Denies night sweats Eyes: Eyes: Reports no additional eye complaints, Denies blurry vision, Denies change in vision, Denies diplopia, Denies eye discharge, Denies loss of vision and Denies eye pain ENT: Denies dizziness Cardiovascular: Cardiovascular: Reports no additional cardiovascular complaints, Reports chest pain (now resolved), Denies lightheadedness, Denies Loss of Consciousness and Denies dyspnea Respiratory: Respiratory: Reports cough and Denies dyspnea Gastrointestinal: Gastrointestinal: Reports no additional gastrointestinal complaints, Denies abdominal pain, Denies melena, Denies hematochezia, Denies change in bowel habits and Denies change in stool character Genitourinary: Genitourinary: Denies hematuria, Denies urinary frequency, Denies dysuria, Denies urinary incontinence, Denies urinary hesitancy and Denies urinary urgency Musculoskeletal: Musculoskeletal: Reports no additional musculoskeletal complaints, Denies numbness and Denies tingling Neurologic: Denies dizziness, Denies loss of vision, Denies numbness and Denies tingling Psychiatric: Psychiatric: Reports no additional psychiatric complaints Endocrine: Endocrine: Reports no additional endocrine complaints Hematologic/Lymphatic: Hematologic/Lymphatic: Reports no additional hematologic/lymphatic complaints Allergic/Immunologic: Allergic/Immunologic: Reports no additional allergic/immunologic complaints PMF Past Medical History Attestation statement: The following information was validated with the patient. Source: old records reviewed and nursing notes reviewed Medical History Lactating mother Threatened labor at term Asthma History of gestational diabetes Anxiety Surgical History History of incision and drainage Hx of wisdom tooth extraction Hx of dilation and curettage Family History Family History Father Family hx-stroke History of esophageal cancer Mother Anxiety Maternal Grandmother Hx of congestive heart failure Hx of diabetes mellitus Maternal Grandfather Colon cancer Hx of diabetes mellitus Paternal Grandfather Cancer Sister Mental health disorder Maternal Aunt Substance use disorder Social History Social History Household Members: Spouse and Children Housing: House Alcohol intake: never Patient Tobacco Use Status: Never used Tobacco Smoked in Last 30 Days: No e-Cigarette/Vaping Use: Never Used Second Hand Smoke Exposure: No Use of substances other than those prescribed or required for medical reasons: No Advance Directives: No Patient : No service: No Current occupational status: employed Gender identity: Female Cognitive needs: No Hearing needs: No Vision needs: No Physical Exam ED Vital Signs: Vital Signs - 24 hr 04/24/23 14:18 Temperature 98.3 F Pulse Rate 90 Respiratory Rate 18 Blood Pressure 112/76 Pulse Oximetry 97 Oxygen Delivery Method Room Air BMI result Body Mass Index 24.8 Const General: cooperative, no acute distress, alert and awake Nutritional Appearance: average body habitus Orientation/consciousness: patient oriented x3 Limitations: no limitations HENMT Head: Yes normal to inspection Ears: hearing grossly normal bilaterally General nose exam: Normal external nose present Face and sinus: Yes normal facial exam Mouth: Normal oral and palatal mucosa present, no drooling and no muffled voice Eyes General: appearance normal, both eyes and all related structures Periorbital: periorbital findings normal Eyelids: Yes eyelids normal Conjunctivae: conjunctivae normal Pupils: Equal, round and reactive pupils present EOM: EOMs intact bilaterally Neck Neck: Yes normal visual inspection Chest Chest palpation & inspection: normal inspection of the chest Resp Effort & Inspection: normal respiratory effort and able to speak in complete sentences Auscultation: clear to auscultation bilaterally Cardio Jugular venous distension: no JVD Palpation: normal PMI Rate: tachycardic Rhythm: regular rhythm GI Inspection: Yes normal to inspection Neuro General: patient oriented x3 Cranial nerves: Yes Equal, round and reactive pupils present Cognition (Neuro): normal cognition Motor exam (neuro): 5/5 motor strength present throughout Sensory Exam: Normal double simultaneous stimulation for sensation Coordination: [id number] test normal Extrem General: Yes normal to inspection, Yes full ROM and Yes capillary refill normal Psych Appearance: grossly normal Mental Status: mental status grossly normal Affect: normal affect Attitude: cooperative Thought process: Normal thought process present Thought content: Normal thought content present Insight: Good insight present (Psych) Medical Decision Making Medical Decision Making MDM Narrative: Patient is a 32 year old assigned female at with a history of anxiety and recent Influenza presenting to the emergency department today with central chest pain and facial flushing. Patient's physical exam was unremarkable. Patient's blood work showed a chronically elevated bilirubin but was otherwise unremarkable. Patient's EKG was unremarkable. Patient's chest x-ray showed no acute process. Patient's Influenza test remains positive. I explained my physical exam findings as well as all test results to the patient. I answered all questions asked by the patient. 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 I stressed the importance of the patient taking her medication as prescribed. I stressed the importance of the patient following up with her primary care provider and a GI specailist. I stressed the importance of the patient returning to the emergency department immediately if her symptoms were to worsen or if she were to develop any dizziness, shortness of breath, difficulty breathing, chest pain, blurry vision, loss of vision, nausea, vomiting, abdominal pain, fever, chills, back pain, or any other complaints. Patient verbalized agreement and understanding with this treatment plan and discharge. Differential Diagnosis Differential Diagnoses: The differential diagnosis associated with the presentation includes Chest pain Epigastric pain Biliary colic Anxiety Admission/Observation Consideration of admission/observation: Escalation of care including admission/observation considered Patient would have been admitted to the hospital had her work up had any findings where hospital admission was appropriate and her clinical presentation warranted hospital admission. Lab Data [facility] Lab Attestation statement: I reviewed the patient's lab results. My interpretation of these results are in the [facility] Rationale portion of this note. 04/24/23 14:08 04/24/23 14:08 Labs: Lab Results 04/24/23 Range/Units 14:08 WBC 5.9 (4.8-10.8) X10*3/uL RBC 4.74 (4.20-5.50) X10*6/uL Hgb 15.0 (12.0-16.0) g/dl Hct 41.3 (37.0-47.0) % MCV 87.1 (80.0-98.0) fL MCH 31.6 (27.0-33.0) pg MCHC 36.3 H (31.0-35.0) g/dl RDW 12.2 (11.0-16.0) % Plt Count 280 D (160-400) X10*3/uL MPV 9.9 (9.4-12.3) fL Immature Gran % (Auto) 0.3 (0.0-0.4) % Neut % (Auto) 71.5 (45-73) % Lymph % (Auto) 21.6 (20-40) % [place] % (Auto) 5.4 (2-11) % Eos % (Auto) 0.7 (0-4) % Baso % (Auto) 0.5 (0-2) % Lymph # (Auto) 1.3 (1.2-4.9) X10*3/uL [place] # (Auto) 0.3 (0.1-1.2) X10*3/uL Eos # (Auto) 0.0 (0.0-0.4) X10*3/uL Baso # (Auto) 0.0 (0.0-0.2) X10*3/uL Abs Immat Gran (auto) 0.02 (0.00-0.03) X10*3/uL Absolute Neuts (auto) 4.2 (2.0-8.3) x10*3/uL Absolute Nucleated RBC 0.000 (0.0-0.012) X10*3/uL Nucleated RBC % (auto) 0.0 (0.0-0.2) /100WBC ESR 10 (0-20) MM/HR PT 12.7 (11.1-13.3) SEC INR 1.0 (0.9-1.1) APTT 33.7 (26.0-36.8) SEC D-Dimer High Sensitivty 178 NG/ML Sodium 142 (135-145) mmol/L Potassium 4.1 (3.3-5.1) mmol/L Chloride 106 (96-108) mmol/L Carbon Dioxide 28 (22-29) mmol/L Anion Gap 12 (12-20) BUN 13 (9-16) mg/dL Creatinine 0.80 (0.5-1.4) mg/dL Estim Creat Clear Calc 92.2 Estimated GFR > 60 Random Glucose 99 (60-115) mg/dL Calcium 9.8 (8.4-10.2) mg/dL Total Bilirubin 1.7 H (0.0-1.0) mg/dL AST 16 (5-31) U/L ALT 12 (0-31) U/L Alkaline Phosphatase 65 (39-117) U/L Troponin I High Sens < 2.7 (<3.5-17.0) ng/L C-Reactive Protein < 0.10 (< or = 0.50) mg/dL B-Natriuretic Peptide < 10 (<100) pg/mL Total Protein 7.7 (6.5-8.0) g/dL Albumin 4.7 (3.5-5.0) g/dL Beta HCG, Quant < 2 mIU/mL Influenza Type A (PCR) POSITIVE A (Negative) Influenza Type B (PCR) NEGATIVE (Negative) RSV RNA Qual (PCR) NEGATIVE (Negative) SARS-CoV-2 RNA (RT-PCR) NEGATIVE (Negative) Independent Interpretation I performed an independent interpretation of an: EKG and Plain X-Ray Interpretation: My interpretation is in agreement with the radiologist's impression of this imaging study. - EXAMINATION: XR CHEST CLINICAL INFORMATION: Chest pain. COMPARISON: Chest radiograph dated 09/01/2022. TECHNIQUE: 2 views of the chest were obtained. FINDINGS: The trachea is in normal anatomic position. Heart size is normal. Both lungs are clear. Pleural spaces are clear. No pneumothorax. No acute osseous abnormality. XR/XR chest 2V IMPRESSION: No acute cardiopulmonary disease. Dictated By: Angel Coles Jr, DO Signed By: Electronically signed by Angel Coles Jr, DO 04/24/23 1516 - Vent. Rate: 102 BPM Atrial Rate: 102 BPM P-R Int: 150 ms QRS Dur: 092 ms QT Int: 338 ms P-R-T Axes: 070 042 016 degrees QTc Int: 440 ms Sinus tachycardia Possible Left atrial enlargement Borderline ECG When compared with ECG of 09-JUL-2020 14:31, No significant change was found Electronically Signed By:PAVAN FERGUSON MD Dictated By: Pavan Ferguson MD Signed By: Electronically signed by Pavan Ferguson MD 04/24/23 9621 Radiology Impression Discussion of test interpretation with radiology: I have reviewed the radiologist's reading. Tests considered The following testing was considered but not selected: I considered an US of the gallbladder given the patient's colicky type pain and elevated bilirubin. However, the patient declined this test at this time and requested to first follow up with her GI specailist. Discharge Plan Discharge Clinical Impression: Chest pain Patient Disposition: Home, Self-Care Instructions: Chest Pain (DC) Additional Instructions: Given your continued elevated bilirubin and symptoms, follow up with your GI specialist for further evaluation of your gallbladder - if indicated. You are still testing positive for influenza, this is likely from your previous infection however, I cannot definitively say it is not a new infection. Follow up with your primary care provider. Return to the emergency department immediately if your symptoms worsen or if you develop any dizziness, shortness of breath, difficulty breathing, chest pain, blurry vision, loss of vision, nausea, vomiting, abdominal pain, fever, chills, back pain, or any other complaints. Prescriptions: No Action Mirena 20 mcg/24 hours (6 yrs) 52 mg intrauterine device 1 device intrauterine ONCE Qty: 1 0RF Mirena 20 mcg/24 hours (7 yrs) 52 mg intrauterine device intrauterine sertraline 50 mg tablet 50 mg PO DAILY Referrals: Natasha Simmons MD [Primary Care Provider] - Interventions: ED Discharge Assessment Last Done: 04/24/23 15:41 Discharge Date/Time: 04/24/23 15:42 Print Language: Yakut
[2023-04-24 14:13] LABS: MANUAL DIFF FLAG NO
[2023-04-24 14:16] LABS: Basophils Percent Auto 0.5 % (0-2); Eosinophils Percent Auto 0.7 % (0-4); Hematocrit 41.3 % (37.0-47.0); Imm Gran Abs Auto 0.02 X10*3/uL (0.00-0.03); Imm Gran Pct Auto 0.3 % (0.0-0.4); Lymphocytes Absolute Auto 1.3 X10*3/uL (1.2-4.9); Lymphocytes Percent Auto 21.6 % (20-40); Mean Corpuscular HGB Conc 36.3 g/dl (31.0-35.0); Mean Corpuscular Hemoglobin 31.6 pg (27.0-33.0); Mean Corpuscular Volume 87.1 fL (80.0-98.0); Mean Platelet Volume 9.9 fL (9.4-12.3); Monocytes Absolute Auto 0.3 X10*3/uL (0.1-1.2); Monocytes Percent Auto 5.4 % (2-11); Neutrophils Absolute Auto 4.2 x10*3/uL (2.0-8.3); Neutrophils Percent Auto 71.5 % (45-73); Platelet Count 280 X10*3/uL (160-400); Red Blood Count 4.74 X10*6/uL (4.20-5.50); Red Cell Distribution Width 12.2 % (11.0-16.0); White Blood Count 5.9 X10*3/uL (4.8-10.8)
[2023-04-24 14:18] VITALS: BP 112/76; PULSE 90; RESP 18; TEMP 36.8; O2SAT 97; BMI 24.8
[2023-04-24 14:21] LABS: Prothrombin Time 12.7 SEC (11.1-13.3)
[2023-04-24 14:24] LABS: D Dimer High Sensitivity 178 NG/ML; Partial Thromboplastin Time 33.7 SEC (26.0-36.8)
[2023-04-24 14:28] LABS: C Reactive Protein < 0.10 mg/dL (< or = 0.50)
[2023-04-24 14:35] LABS: B Type Natriuretic Peptide < 10 pg/mL (<100)
[2023-04-24 14:36] LABS: Alanine Aminotransferase 12 U/L (0-31); Albumin Level 4.7 g/dL (3.5-5.0); Alkaline Phosphatase 65 U/L (39-117); Anion Gap 12 (12-20); Aspartate Amino Transferase 16 U/L (5-31); Bilirubin Total 1.7 mg/dL (0.0-1.0); Blood Urea Nitrogen 13 mg/dL (9-16); Calcium 9.8 mg/dL (8.4-10.2); Carbon Dioxide 28 mmol/L (22-29); Chloride 106 mmol/L (96-108); Creatinine Clr Calc Pharmacy 92.2; Estimated Glomerular Filt Rate > 60; Glucose Random 99 mg/dL (60-115); Potassium 4.1 mmol/L (3.3-5.1); Sodium 142 mmol/L (135-145); Total Protein 7.7 g/dL (6.5-8.0)
[2023-04-24 14:44] LABS: HCG Quantitative < 2 mIU/mL; Troponin-I High Sensitivity < 2.7 ng/L (<3.5-17.0)
[2023-04-24 15:20] LABS: Erythrocyte Sedimentation Rate 10 MM/HR (0-20)
[2023-04-24 15:29] LABS: Influenza A PCR POSITIVE (Negative); Influenza B PCR NEGATIVE (Negative); Resp Syncy Virus RNA Qual PCR NEGATIVE (Negative); SARS COV2 PCR INHOUSE NEGATIVE (Negative)
== END 2023-04-24 15:42 | disposition home or self-care (01) ==
PROVIDERS: Physician Assistant; Physician Assistant Medical; Emergency Provider Emergency Medicine; PCP Internal Medicine
DX: R07.9 Chest pain, unspecified (principal); J45.909 Unspecified asthma, uncomplicated; Z11.52 Encounter for screening for COVID-19; Z20.828 Contact with and (suspected) exposure to other viral communicable diseases
CPT/HCPCS: 0241U; 36415; 71046; 80053; 83880; 84484; 84702; 85025; 85379; 85610; 85652; 85730; 86140; 93005; 99284

== ENCOUNTER → 2023-04-24 13:26 | Outpatient (BNV) | payer OTHER, SELFPAY | PROVIDERS: Emergency Provider Emergency Medicine; PCP Internal Medicine; Visit Provider Internal Medicine Cardiovascular Disease | DX: R07.9 Chest pain, unspecified (principal) | CPT/HCPCS: 93010 ==

== ENCOUNTER 2023-05-05 15:24 | Outpatient (REF) | payer OTHER, SELFPAY ==
[2023-05-05 17:14] LABS: Bilirubin Direct 0.3 mg/dL (0.0-0.5); Gamma Glutamyl Transpeptidase 25 U/L (7-33); Lipase 39 U/L (8-78)
[2023-05-05 17:28] LABS: Ferritin 63 ng/mL (10-122)
[2023-05-08 20:24] LABS: Cytomegalovirus Ab IgG >10.00 U/mL; Cytomegalovirus Ab IgM <30.00 AU/mL
[2023-05-08 22:32] LABS: Transglutaminase Ab IgG <1.0 U/mL; Transglutaminase IgA <1.0 U/mL
[2023-05-09 10:08] LABS: Mitochondrial Antibodies NEGATIVE (NEGATIVE)
== END 2023-05-05 15:25 | disposition home or self-care (01) ==
LOC: HO.LAB 15:24
PROVIDERS: Visit Provider Nurse Practitioner
DX: E80.6 Other disorders of bilirubin metabolism (principal)
CPT/HCPCS: 36415; 82248; 82728; 82977; 83690; 85610; 86364; 86381; 86644; 86645

== ENCOUNTER 2023-05-24 08:28 | Outpatient (REF) | payer OTHER, SELFPAY ==
--- NOTE | ~2023-05-24 | MR_ITS ---
EXAMINATION: MR BRAIN WITHOUT CONTRAST CLINICAL INFORMATION: Headache with orthostatic component COMPARISON: MRI brain on 07/09/2020. TECHNIQUE: MRI of the brain was obtained using routine sequences without contrast. FINDINGS: No acute intracranial hemorrhage or infarct. No midline shift or hydrocephalus. No acute extra-axial fluid collections. The osseous structures are unremarkable. 4 mm cerebellar tonsillar ectopia, unchanged. The pituitary gland, pineal gland and remaining midline structures are unremarkable. No orbital pathology. Mucus retention cyst partially opacifying the left maxillary sinus. Mastoid air cells are clear. MR/MR head/brain wo con IMPRESSION: Unremarkable MRI brain.
== END 2023-05-24 08:29 | disposition home or self-care (01) ==
LOC: HO.MRI 08:28
PROVIDERS: PCP Internal Medicine; Visit Provider Nurse Practitioner Family
DX: R51.0 Headache with orthostatic component, not elsewhere classified (principal)
CPT/HCPCS: 70551

== ENCOUNTER 2023-06-26 14:32 | Outpatient (AMB) | payer OTHER, SELFPAY ==
[2023-06-26 14:41] VITALS: BP 110/70; BMI 24.1
--- NOTE | 2023-06-26 14:41 | A.OFFVIS_ITS ---
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 No complaints. Last Pap smear was negative in 04/06 Last Mammogram was BI-RADS 2 in 02/04 [facility] Medical History Lactating mother Threatened labor at term Asthma History of gestational diabetes Anxiety Surgical History History of incision and drainage Hx of wisdom tooth extraction Hx of dilation and curettage Family History Father Family hx-stroke History of esophageal cancer Mother Anxiety Maternal Grandmother Hx of congestive heart failure Hx of diabetes mellitus Maternal Grandfather Colon cancer Hx of diabetes mellitus Paternal Grandfather Cancer Sister Mental health disorder Maternal Aunt Substance use disorder Social History Household Members: Spouse and Children Housing: House Alcohol intake: never Patient Tobacco Use Status: Never used Tobacco e-Cigarette/Vaping Use: Never Used Second Hand Smoke Exposure: No service: No Current occupational status: employed Gender identity: Female Cognitive needs: No Hearing needs: No Vision needs: No Female Reproductive History Menstrual Age of Menarche: 16 control method: progestin IUCD Date of last pap smear: 04/06/21 Review of Systems Const All systems reviewed & are unremarkable except as noted in HPI and below Card Reports as per HPI Resp Reports as per HPI GI Reports as per HPI and Reports no additional complaints Reports as per HPI Physical Exam Const General: cooperative, healthy appearing and comfortable Chest Chest palpation & inspection: normal inspection of the chest and normal palpation of entire chest wall Breast/axilla inspection: normal inspection of the breasts and normal inspection of the axillae Breast/axilla palpation: normal palpation of the breasts, normal palpation of the axillae and no axillary lymphadenopathy Resp Effort & Inspection: normal respiratory effort Auscultation: clear to auscultation bilaterally Percussion: percussion normal Cardio Palpation: normal PMI Rate: regular rate Rhythm: regular rhythm Heart sounds: no murmurs and no rubs Peripheral pulses: Peripheral pulses 2+ throughout GI Inspection: Yes normal to inspection Palpation (GI): Soft to palpation, nontender, no guarding, not rigid and No hepatosplenomegaly present Percussion: Yes normal to percussion Auscultation: normal bowel sounds Rectal Exam - Female: deferred General: Yes bladder normal to palpation External Female Exam: No lesion Speculum Exam - Vagina: normal appearance of the vagina, normal palpation, normal vaginal discharge and not erythematous Speculum Exam - Cervix: normal appearance of the cervix and normal palpation Bimanual exam- vagina & uterus: normal bimanual exam, normal palpation, uterine size normal, bladder normal to palpation, consistency normal and normal palpation Bimanual Exam- Adnexa, other: normal adnexae, no masses and no tenderness Assessment & Plan Assessment & Plan (1) Well woman exam: Code(s): Z01.419 - Encounter for gynecological examination (general) (routine) without abnormal findings Category: Medical Plan: Pap smear not indicated this year. Counseled the patient about the recommended dietary allowance of 1000 mg of Calcium & 600 IU of vitamin D. The patient was instructed to perform monthly self-breast exams and to schedule an annual exam in a year; All questions answered and the patient verbalized understanding. Instructed the patient to schedule annual exam in a year Coding Level of Care Code Est Pt Prev Care 18-39y(16760) Diagnoses Well woman exam Z01.419
== END 2023-06-26 14:55 | disposition home or self-care (01) ==
PROVIDERS: Visit Provider Obstetrics & Gynecology
DX: Z01.419 Encounter for gynecological examination (general) (routine) without abnormal findings (principal)
CPT/HCPCS: 99395

== ENCOUNTER → 2023-06-26 14:32 | Outpatient (BNVA) | payer OTHER, SELFPAY | PROVIDERS: Visit Provider Obstetrics & Gynecology ==

== ENCOUNTER 2023-07-04 07:55 | Outpatient (REF) | payer OTHER, SELFPAY ==
--- NOTE | ~2023-07-04 | US_ITS ---
EXAMINATION: US THYROID CLINICAL INFORMATION: Nontoxic single thyroid nodule. COMPARISON: Ultrasound soft tissue head/neck thyroid dated 11/28/2022. TECHNIQUE: Linear transducer grayscale and color Doppler examination with attention to the region of the thyroid. FINDINGS: SIZE: Measurements of the thyroid lobes and nodules are given in sagittal, anteroposterior and transverse dimensions respectively. Right Thyroid Lobe: 5.8 x 1.7 x 1.6 cm, volume 8.3 mL. Previously 5.3 x 1.6 x 1.5 cm, volume 6.6 mL. Parenchyma: The gland echotexture is homogeneous. Thyroid vascularity is normal. Left Thyroid Lobe: 4.8 x 1.3 x 1.7 cm, volume 5.5 mL. Previously 4.3 x 1.4 x 1.7 cm, volume 5.1 mL. Parenchyma: The gland echotexture is homogeneous. Thyroid vascularity is normal. Isthmus: 0.6 cm in maximum AP dimension. Previously 0.7 cm. Estimated total number of nodules greater than or equal to 1 cm: 0. Erp Business Analyst nodules are described as follows: 1. Location: Isthmus. Size: 0.6 x 0.5 x 0.5 cm, volume 0.078 mL. Previously: 0.6 x 0.4 x 0.6 cm, volume 0.08 mL. Nodule characteristics: Composition: Solid (2). Echogenicity: Very hypoechoic (3). Shape: Not taller than wide (0). Margins: Smooth (0). Echogenic Foci: None (0). ACR TI-RADS total points: 5 Previous: 4 ACR TI-RADS category: 4 Previous: 4 Significant change in size (>/= 20% in 2 dimensions and minimal increase of 2 mm or 50% or greater increase in volume): No Change in features: Yes Change in ACR TI-RADS risk category: No NODES: No lymphadenopathy is seen in the tissue surrounding the thyroid gland. US/US thyroid IMPRESSION: 0.6 cm isthmus TR 4 thyroid nodule is stable in size. ACR TI-RADS RECOMMENDATION REFERENCE: Ultrasound-guided fine-needle aspiration, follow up ultrasound, no further followup. * TR1 (0 point) and TR2 (2 points): No FNA or followup * TR3 (3 points): FNA if more than or equal to 2.5 cm in maximum dimension, follow up ultrasound in 1, 3 and 5 years if 1.5 to 2.4 cm in maximum dimension. * TR4 (4-6 points): FNA if more than or equal to 1.5 cm in maximum dimension, follow up ultrasound in 1, 2, 3 and 5 years if 1 to 1.4 cm in maximum dimension. * TR5 (more than or equal to 7 points): FNA if more than or equal to 1 cm in maximum dimension, follow up ultrasound every year for 5 years if 0.5 to 0.9 cm in maximum dimension. * TR3, TR4 or TR5 nodules that are below the size threshold for follow up receive no followup.
== END 2023-07-04 07:56 | disposition home or self-care (01) ==
LOC: HO.US 07:55
PROVIDERS: PCP Internal Medicine; Visit Provider Internal Medicine
DX: E04.1 Nontoxic single thyroid nodule (principal)
CPT/HCPCS: 76536

== ENCOUNTER 2023-08-11 07:59 | Outpatient (AMB) | payer OTHER, SELFPAY ==
--- NOTE | 2023-08-11 08:03 | MHC.OFFVIS ---
Vital Signs 08/11/23 08:10 Height 5 ft 3 in Weight 134 lb 7.712 oz BMI 23.8 BP 114/86 Blood Pressure Location Lt brachial Position Sitting Pulse 70 Pulse Source Pulse Oximeter Pulse Oximetry (%) 99 Oxygen Delivery Method Room Air Intake Visit Reasons: R/s from 06/06 Intake Note: Landon presents in office today for a scheduled FUV. CC; Pt reports that the current care plan is working well for treating her sx. Pt denies any significant concerns or sx at this time. Pt reports that they did get their lab work done a while ago. 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 LIVER: Normal. The liver is normal in size. The liver contour is normal. Parenchymal echogenicity is normal. No focal hepatic lesion. There is no intrahepatic biliary duct dilatation seen. GALLBLADDER: Gallbladder wall thickness is 0.37. The gallbladder is physiologically distended without evidence of stones, sludge, polyps, wall thickening or pericholecystic fluid. There is no tenderness in right upper quadrant. COMMON BILE DUCT: Normal in caliber measuring 0.4 cm in diameter. RIGHT KIDNEY: Normal. No hydronephrosis. No renal calculi or focal parenchymal lesions. The kidney measures 10.7 cm in maximum dimension. FREE FLUID: None. US/US abdomen limited IMPRESSION: Unremarkable limited abdomen ultrasound. ? Code(s): R79.89 - Other specified abnormal findings of blood chemistry Plan: PATIENT LOST TO FOLLOW-UP SINCE 12/2021 PRN can f0llow with PCP and have yearly LFT's and return to us if trans 3x normal limit. Likely [place] syndrome and she was educated about this. The enlarged spleen is likely genetic it is not cause for any concern. (2) GERD (gastroesophageal reflux disease): Comment: Resolved after giving Code(s): K21.9 - Gastro-esophageal reflux disease without esophagitis (3) Rectal pain: Comment: Resolved treating her hemorrhoids after vaginal delivery Code(s): K62.89 - Other specified diseases of anus and rectum CORRESPONDENCE. ? . On 05/04/23 @ 15:24 Yuli Malave Wrote To Landon Benites I think he should do the labs before the visit so that I have the information and I will help us progress more quickly. I have already ordered them. On 05/03/23 @ 15:57 LANDON CURRAN (Regarding Self / Same As Patient) Wrote To Yuli Malave The soonest appt was 06/06, did you want me to do more bloodwork ? Just to clarify or well discuss at the appointment On 04/27/23 @ 10:59 Yuli Malave Wrote To Landon Benites I recommend more blood work first. We worked this same thing up in 2021, and it was not gallstones (which is what the ER is thinking about). I will order labs, do you have any follow up appointments with me? If not, please schedule one in the next few weeks. On 04/26/23 @ 16:18 LANDON CURRAN (Regarding Self / Same As Patient) Wrote To Yuli Malave Hi, I was recently at the ED for respiratory symptoms / some chest pain. My bilirubin was elevated they recommend a follow up gallbladder ultrasound? and to reach out to GI. 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 I explained this to her and that she might become yellow during times of physiologic stress but this will resolve once her body recovers and if it really bothers her she could just get a little extra sunlight to help her breakdown the bilirubin. This is not really a disease but simply a genetic variant in how your body processes bilirubin. I will put this in her chart to prevent any further unnecessary referrals or worry on her part. Return office visit as needed. [facility] Medical History Hemorrhoids Hematuria Chest heaviness Family history of esophageal cancer Thyroid disorder screening Cervical cancer screening History of gestational diabetes Headache in Gestational diabetes mellitus (GDM) Supervision of other normal Pelvic pain affecting Nausea and vomiting of , antepartum Decreased movement Supervision of normal in third trimester Poor growth complicating , antepartum Lactating mother Threatened labor at term IUD check up Family planning Encounter for general adult medical examination with abnormal findings Well woman exam with routine gynecological exam Well woman exam Adult general medical exam Asthma History of gestational diabetes Anxiety Surgical History Cellulitis History of incision and drainage Hx of wisdom tooth extraction Hx of dilation and curettage Family History Father Family hx-stroke History of esophageal cancer Mother Anxiety Maternal Grandmother Hx of congestive heart failure Hx of diabetes mellitus Maternal Grandfather Colon cancer Hx of diabetes mellitus Paternal Grandfather Cancer Sister Mental health disorder Maternal Aunt Substance use disorder Social History Household Members: Spouse and Children Housing: House Alcohol intake: never Patient Tobacco Use Status: Never used Tobacco e-Cigarette/Vaping Use: Never Used Second Hand Smoke Exposure: No service: No Current occupational status: employed Gender identity: Female Cognitive needs: No Hearing needs: No Vision needs: No Female Reproductive History Menstrual Age of Menarche: 16 Review of Systems Const Denies fatigue, Denies fever(s), Denies night sweats, Denies poor appetite and Denies weight loss ENT Reports Normal hearing present, Denies dental pain, Denies dysphagia, Denies hearing loss, Denies mouth pain, Denies odynophagia, Denies throat swelling, Denies tongue swelling and Reports other (Dentition adequate) Card Reports no additional complaints Resp Reports no additional complaints GI Details: Denies abdominal pain, Denies melena, Denies bloating, Denies hematochezia, Denies constipation, Denies GI cramping, Denies dysphagia, Denies excessive flatus, Denies early satiety, Denies heartburn, Denies diarrhea, Denies nausea, Denies odynophagia, Denies vomiting and Denies hematemesis Skin/Breast Denies pruritus, Denies lesions, Denies rash and Denies jaundice Neuro Reports Normal hearing present and Denies Abnormal speech present Endo Denies fatigue Aller/Immun Denies throat swelling and Denies tongue swelling Physical Exam Vital Signs: Last Vital Signs Pulse 70 08/11/23 08:10 BP 114/86 08/11/23 08:10 Pulse Ox 99 08/11/23 08:10 Oxygen Delivery Method Room Air 08/11/23 08:10 BMI result Body Mass Index 23.8 Const General: cooperative, no acute distress, well developed and well groomed Nutritional Appearance: average body habitus and well nourished Orientation/consciousness: oriented to person, oriented to place and oriented to time Limitations: No language barrier HEENT Head: Yes normocephalic and Yes atraumatic Eyes General: appearance normal, both eyes and all related structures Pupils: Equal, round and reactive pupils present Neck Neck: Yes normal visual inspection and Yes no lymphadenopathy Thyroid: Thyroid normal Resp Effort & Inspection: normal respiratory effort and able to speak in complete sentences Auscultation: clear to auscultation bilaterally Cardio Rate: regular rate Rhythm: regular rhythm Heart sounds: Normal, physiologic split S2 sound present Peripheral pulses: radial pulses present and posterior tibial pulses present GI Inspection: No distended and No Abdominal panniculus present Palpation (GI): Soft to palpation, nontender, no guarding, not rigid and No hepatosplenomegaly present Percussion: Yes normal to percussion Auscultation: normal bowel sounds Rectal Exam - Female: deferred Skin General skin exam: no rashes or lesions noted, turgor normal, skin not dry, no jaundice, No spider nevi and no striae Rashes: no rashes Nails: normal Neuro General: oriented to person, oriented to place and oriented to time Cranial nerves: Yes Equal, round and reactive pupils present and Yes Normal hearing present Speech: No Abnormal speech present Extrem General: Yes normal to inspection, No clubbing, No cyanosis and No edema Psych Appearance: grossly normal and well kempt Mental Status: mental status grossly normal Speech and movement: Normal speech and movement present Affect: normal affect Attitude: cooperative Thought process: Normal thought process present and not confabulating Thought content: Normal thought content present Insight: Fair insight present (Psych) Judgement: Fair judgement present (Psych) Assessment & Plan Assessment & Plan (1) [place] syndrome: Comment: Laboratory Tests 04/23/2402/22/24 14:0815:32 Ferritin 63 Total Bilirubin 1.7 H Direct Bilirubin 0.3 GGT 25 AST 16 ALT 12 Alkaline Phosphatase 65 Lipase 39 Anti-Mitochondrial Ab NEGATIVE Tiss Transglutamin IgG <1.0 Tiss Transglutamin IgA <1. 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 Category: Medical (2) Hyperbilirubinemia: Code(s): E80.6 - Other disorders of bilirubin metabolism Category: Medical (3) GERD (gastroesophageal reflux disease): Comment: Resolved after giving Code(s): K21.9 - Gastro-esophageal reflux disease without esophagitis Category: Medical (4) LFT elevation: Comment: BASELINE LABS; .12/16/20 Total Bilirubin 2.3 H Direct Bilirubin 0.5 AST 19 ALT 16 Alkaline Phosphatase 67 C-Reactive Protein 0.05 Anti-Mitochondrial Ab NEGATIVE Anti-Smooth Muscle Ab 23 H CURRENT LABS 02/24/2300/12/23 12:0212:02 WBC 6.3 Hgb 14.4 Hct 40.6 Plt Count 288 D Estimated GFR > 60 Total Bilirubin 1.9 H AST 17 ALT 14 Alkaline Phosphatase 71 TSH 1.54 ULTRASOUND OF THE ABDOMEN 02/10/22 FINDINGS: PANCREAS: Normal. LIVER: Normal. The liver is normal in size. The liver contour is normal. Parenchymal echogenicity is normal. No focal hepatic lesion. There is no intrahepatic biliary duct dilatation seen. GALLBLADDER: Gallbladder wall thickness is 0.37. The gallbladder is physiologically distended without evidence of stones, sludge, polyps, wall thickening or pericholecystic fluid. There is no tenderness in right upper quadrant. COMMON BILE DUCT: Normal in caliber measuring 0.4 cm in diameter. RIGHT KIDNEY: Normal. No hydronephrosis. No renal calculi or focal parenchymal lesions. The kidney measures 10.7 cm in maximum dimension. FREE FLUID: None. US/US abdomen limited IMPRESSION: Unremarkable limited abdomen ultrasound. ? 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 I explained this to her and that she might become yellow during times of physiologic stress but this will resolve once her body recovers and if it really bothers her she could just get a little extra sunlight to help her breakdown the bilirubin. This is not really a disease but simply a genetic variant in how your body processes bilirubin. I will put this in her chart to prevent any further unnecessary referrals or worry on her part. Return office visit as needed. Coding Level of Care Code Est Pt Level 3 (23250) Diagnoses [place] syndrome E80.4 Hyperbilirubinemia E80.6 GERD (gastroesophageal reflux disease) K21.9 LFT elevation R79.89
[2023-08-11 08:10] VITALS: BP 114/86; PULSE 70; O2SAT 99; BMI 23.8
== END 2023-08-11 09:16 | disposition home or self-care (01) ==
PROVIDERS: PCP Internal Medicine; Visit Provider Nurse Practitioner
DX: E80.4 Gilbert syndrome (principal); E80.6 Other disorders of bilirubin metabolism; K21.9 Gastro-esophageal reflux disease without esophagitis; R79.89 Other specified abnormal findings of blood chemistry
CPT/HCPCS: 99213

== ENCOUNTER → 2023-08-11 07:59 | Outpatient (BNVA) | payer OTHER, SELFPAY | PROVIDERS: PCP Internal Medicine; Visit Provider Nurse Practitioner ==

== ENCOUNTER 2023-08-14 07:27 | Outpatient (AMB) | payer OTHER, SELFPAY ==
--- NOTE | 2023-08-14 07:36 | A.OFFVIS_ITS ---
Vital Signs 08/14/23 07:37 Height 5 ft 3 in Weight 134 lb BMI 23.7 BP 128/66 Blood Pressure Location Lt brachial Position Sitting Intake Visit Reasons: Pain and spotting with IUD Allergies No Known Allergies Allergy (Verified 08/14/23 07:39) HPI Comments Details: Presenting complaining of vaginal spotting and pelvic pain that started 2 weeks ago more so during intercourse. No vaginal discharge, no urinary or GI symptoms, no fever or chills nausea or vomiting. [facility] Medical History Hemorrhoids Hematuria Chest heaviness Family history of esophageal cancer Thyroid disorder screening Cervical cancer screening History of gestational diabetes Headache in Gestational diabetes mellitus (GDM) Supervision of other normal Pelvic pain affecting Nausea and vomiting of , antepartum Decreased movement Supervision of normal in third trimester Poor growth complicating , antepartum Lactating mother Threatened labor at term IUD check up Family planning Encounter for general adult medical examination with abnormal findings Well woman exam with routine gynecological exam Well woman exam Adult general medical exam Asthma History of gestational diabetes Anxiety Surgical History Cellulitis History of incision and drainage Hx of wisdom tooth extraction Hx of dilation and curettage Family History Father Family hx-stroke History of esophageal cancer Mother Anxiety Maternal Grandmother Hx of congestive heart failure Hx of diabetes mellitus Maternal Grandfather Colon cancer Hx of diabetes mellitus Paternal Grandfather Cancer Sister Mental health disorder Maternal Aunt Substance use disorder Social History Household Members: Spouse and Children Housing: House Alcohol intake: never Patient Tobacco Use Status: Never used Tobacco e-Cigarette/Vaping Use: Never Used Second Hand Smoke Exposure: No service: No Current occupational status: employed Gender identity: Female Cognitive needs: No Hearing needs: No Vision needs: No Female Reproductive History Menstrual Age of Menarche: 16 Review of Systems Const All systems reviewed & are unremarkable except as noted in HPI and below Physical Exam Vital Signs: Last Vital Signs BP 128/66 08/14/23 07:37 BMI result Body Mass Index 23.7 General: Yes no CVA tenderness External Female Exam: normal external appearance and normal appearance of the urethra Speculum Exam - Vagina: normal appearance of the vagina, normal palpation, no lesions and no masses Speculum Exam - Cervix: normal appearance of the cervix, normal palpation, no lesions, no masses and nontender Bimanual exam- vagina & uterus: normal bimanual exam, normal palpation, uterine size normal, normal palpation, uterine shape normal, No Cervical tenderness present and non-tender Bimanual Exam- Adnexa, other: normal adnexae Back/Spine/Pelvis Back: no CVA tenderness Results AMB Test Urine AMB Test Urine Negative Last Edit by Pham Meneses CMA on 08/14/23 07:49 AMB Urinalysis, Automated UA Leukoctes 0 Tamela/uL Last Edit by Pham Meneses CMA on 08/14/23 14:47 UA Nitrite Negative Last Edit by Pham Meneses CMA on 08/14/23 14:47 UA Urobilinogen 3.5 mg/dL Last Edit by Pham Meneses CMA on 08/14/23 14:47 UA Protein 0 mg/dL Last Edit by Pham Meneses CMA on 08/14/23 14:47 UA pH 6.0 Last Edit by Pham Meneses CMA on 08/14/23 14:47 UA Blood 10 Justin/uL Last Edit by Pham Meneses CMA on 08/14/23 14:47 UA Specific [place] 1.015 Last Edit by Pham Meneses CMA on 08/14/23 14:47 UA Ketone Negative Last Edit by Pham Meneses CMA on 08/14/23 14:47 UA Bilirubin 0 mg/dL Last Edit by Pham Meneses CMA on 08/14/23 14:47 UA Glucose 0 mg/dL Last Edit by Pham Meneses CMA on 08/14/23 14:47 Results Reviewed Results Reviewed: Laboratory Last Values Urine pH (Auto) 6.0 08/14/23 14:46 Specific [place] (Auto) 1.015 08/14/23 14:46 Urine Protein (Auto) 0 mg/dL 08/14/23 14:46 Glucose (UA)(Auto) 0 mg/dL 08/14/23 14:46 Urine Ketones (Auto) Negative 08/14/23 14:46 Urine Blood (Auto) 10 Justin/uL 08/14/23 14:46 Urine Nitrite (Auto) Negative 08/14/23 14:46 Urine Bilirubin (Auto) 0 mg/dL 08/14/23 14:46 Urine Urobilinogen (Auto) 3.5 mg/dL 08/14/23 14:46 Leukocyte Esterase (Auto) 0 Tamela/uL 08/14/23 14:46 Tst Clinic Negative 08/14/23 07:48 Assessment & Plan Assessment & Plan (1) Pelvic pain: Code(s): R10.2 - Pelvic and perineal pain Category: Medical Plan: Urine test done in the office was negative. GC and chlamydia taken and pelvic ultrasound ordered. Discussed with the patient the differential diagnosis of pelvic pain including but not limited to adnexal, uterine masses, pelvic infections (PID), GI the (Irritable bowel syndrome, diverticulitis, others), musculoskeletal, myofascial pain abdominal wall , adhesions, endometriosis, psychological and others causes. Will check results and treat accordingly. All questions answered, the patient verbalized understanding. Instructed the patient to schedule follow-up appointment in 2 weeks (2) IUD strings lost: Code(s): T83.32XA - Displacement of intrauterine contraceptive device, initial encounter Category: Medical Plan: Since there is no IUD strings identified on pelvic exam order ultrasound of the pelvis stat. (3) Microscopic hematuria: Code(s): R31.29 - Other microscopic hematuria Category: Medical Plan: Urine dip showed microscopic hematuria, urine culture sent. Will repeat urine dip in 2 weeks. Discussed with the patient the possible causes of microscopic hematuria including but not limited to: interstitial cystitis, polyps, stones, masses, urethral inflammatory processes and others. If Urine Culture is negative and repeat urine dip in 2 weeks shows persistent microscopic hematuria, will proceed with CT abdomen/pelvis and urology referral. Instructions given the patient to schedule a 2 week urine dip follow-up appointment. All questions answered and the patient verbalized understanding. Orders: Orders AMB HCG Urine Test Today Z32.02 - Encounter for test, result negative AMB Urinalysis Automated Today Z13.9 - Encounter for screening, unspecified CT NG by PCR Today Z11.3 - Encounter for screening for infections with a predominantly sexual mode of transmission US pelvic and transvaginal Today R10.2 - Pelvic and perineal pain, T83.32XA - Displacement of intrauterine contraceptive device, initial encounter Coding Level of Care Code Est Pt Level 3 (61924) Diagnoses Pelvic pain R10.2 IUD strings lost T83.32XA Microscopic hematuria R31.29
[2023-08-14 07:37] VITALS: BP 128/66; BMI 23.7
== END 2023-08-14 08:09 | disposition home or self-care (01) ==
PROVIDERS: PCP Internal Medicine; Visit Provider Obstetrics & Gynecology
DX: R10.2 Pelvic and perineal pain (principal); T83.32XA Displacement of intrauterine contraceptive device, initial encounter; R31.29 Other microscopic hematuria; Z13.9 Encounter for screening, unspecified; Z32.02 Encounter for pregnancy test, result negative
CPT/HCPCS: 99213

== ENCOUNTER 2023-08-14 07:27 | Outpatient (REF) | payer OTHER, SELFPAY ==
[2023-08-15 11:54] LABS: CT PCR NOT DETECTED (Not Detect.); NG PCR NOT DETECTED (Not Detect.)
== END 2023-08-14 07:28 | disposition home or self-care (01) ==
LOC: HO.LNP 07:27
PROVIDERS: PCP Internal Medicine; Visit Provider Obstetrics & Gynecology
DX: Z32.02 Encounter for pregnancy test, result negative (principal); Z20.2 Contact with and (suspected) exposure to infections with a predominantly sexual mode of transmission; R31.29 Other microscopic hematuria; T83.32XA Displacement of intrauterine contraceptive device, initial encounter
CPT/HCPCS: 81003; 81025; 87086; 87491; 87591

== ENCOUNTER 2023-08-14 08:37 | Outpatient (REF) | payer OTHER, SELFPAY ==
--- NOTE | ~2023-08-14 | US_ITS ---
EXAMINATION: US PELVIS CLINICAL INFORMATION: Pelvic pain COMPARISON: Pelvic ultrasound 01/06/2023 TECHNIQUE: Ultrasound of the pelvis is performed using both transabdominal and transvaginal transducers along with Doppler. Transvaginal imaging is performed due to inadequate visualization transabdominally. FINDINGS: Uterus: The uterus is anteverted and measures 6.9 x 4.2 x 4.5 cm. The double wall endometrial thickness is 0.3 mm. And IUD is present in the endometrial cavity in good position. The uterus is smooth in contour and has normal myometrial echogenicity. No visible fibroid. Adnexa: Both ovaries are visualized. Bilateral follicular cysts are seen. There is normal color flow to the adnexa. There is no ovarian torsion. There is no pelvic ascites or fluid collection. Right ovary measures 3.9 x 1.9 x 1.8 cm for a volume of 6.8 mL . A small right paraovarian cyst is present measuring 0.9 x 0.8 x 1.0 cm. Left ovary measures 2.8 x 1.2 x 1.8 cm for a volume of 3.3 mL US/US pelvic and transvaginal IMPRESSION: 1. IUD in good position. 2. Small right paraovarian cyst, no follow-up needed.
== END 2023-08-14 08:38 | disposition home or self-care (01) ==
LOC: HO.US 08:37
PROVIDERS: PCP Internal Medicine; Visit Provider Obstetrics & Gynecology
DX: R10.2 Pelvic and perineal pain (principal); T83.32XA Displacement of intrauterine contraceptive device, initial encounter
CPT/HCPCS: 76830; 76856

== ENCOUNTER 2023-08-14 15:00 | Outpatient (REF) | payer OTHER, SELFPAY | END 2023-08-14 15:01 | disposition home or self-care (01) | LOC: HO.LAB 15:00 | PROVIDERS: Visit Provider Obstetrics & Gynecology | DX: Z13.89 Encounter for screening for other disorder (principal) ==

== ENCOUNTER 2023-08-30 09:45 | Outpatient (AMB) | payer OTHER, SELFPAY ==
--- NOTE | 2023-08-30 09:51 | A.OFFVIS_ITS ---
Vital Signs 08/30/23 09:53 Height 5 ft 3 in Weight 132 lb 4.438 oz BMI 23.4 Intake Visit Reasons: urine dip Harness Cleaner Required: No Information Interpreted: non-clinical & clinical Accompanied by: Self / Same As Patient Allergies No Known Allergies Allergy (Verified 08/30/23 09:53) Is last menstrual period known: Yes HPI Comments Details: Presenting for repeat urine dip regarding microscopic hematuria. Urine culture was negative [facility] Medical History Hemorrhoids Hematuria Chest heaviness Family history of esophageal cancer Thyroid disorder screening Cervical cancer screening History of gestational diabetes Headache in Gestational diabetes mellitus (GDM) Supervision of other normal Pelvic pain affecting Nausea and vomiting of , antepartum Decreased movement Supervision of normal in third trimester Poor growth complicating , antepartum Lactating mother Threatened labor at term IUD check up Family planning Encounter for general adult medical examination with abnormal findings Well woman exam with routine gynecological exam Well woman exam Adult general medical exam Asthma History of gestational diabetes Anxiety Surgical History Cellulitis History of incision and drainage Hx of wisdom tooth extraction Hx of dilation and curettage Family History Father Family hx-stroke History of esophageal cancer Mother Anxiety Maternal Grandmother Hx of congestive heart failure Hx of diabetes mellitus Maternal Grandfather Colon cancer Hx of diabetes mellitus Paternal Grandfather Cancer Sister Mental health disorder Maternal Aunt Substance use disorder Social History Household Members: Spouse and Children Housing: House Alcohol intake: never Patient Tobacco Use Status: Never used Tobacco e-Cigarette/Vaping Use: Never Used Second Hand Smoke Exposure: No service: No Current occupational status: employed Gender identity: Female Cognitive needs: No Hearing needs: No Vision needs: No Female Reproductive History Menstrual Age of Menarche: 16 Review of Systems Const All systems reviewed & are unremarkable except as noted in HPI and below Reports as per HPI and Reports no additional complaints GI Reports no additional complaints Reports no additional complaints Physical Exam Vital Signs: BMI result Body Mass Index 23.4 Assessment & Plan Assessment & Plan (1) Microscopic hematuria: Code(s): R31.29 - Other microscopic hematuria Category: Medical Plan: Urine dip showed microscopic hematuria. Discussed with the patient the possible causes of microscopic hematuria including but not limited to: interstitial cystitis, polyps, stones, masses, urethral inflammatory processes and others, will proceed with CT abdomen/pelvis and urology referral. Instructed the patient to call our office back in case a referral appointment is not scheduled, missed or canceled so that we will assist on rescheduling another appointment, the patient verbalized understanding agreed with the plan. All questions answered and the patient verbalized understanding. Orders: Orders CT abdomen pelvis wo/w IV con Today R31.29 - Other microscopic hematuria Referrals Urology Referral R31.29 - Other microscopic hematuria Coding Level of Care Code Est Pt Level 3 (55550) Diagnoses Microscopic hematuria R31.29
[2023-08-30 09:53] VITALS: BMI 23.4
== END 2023-08-30 11:12 | disposition home or self-care (01) ==
PROVIDERS: PCP Internal Medicine; Visit Provider Obstetrics & Gynecology
DX: R31.29 Other microscopic hematuria (principal)
CPT/HCPCS: 99213

== ENCOUNTER → 2023-08-30 09:45 | Outpatient (BNVA) | payer OTHER, SELFPAY | PROVIDERS: PCP Internal Medicine; Visit Provider Obstetrics & Gynecology | DX: R31.29 Other microscopic hematuria (principal) | CPT/HCPCS: 81002 ==

== ENCOUNTER 2023-09-19 14:05 | Outpatient (AMB) | payer OTHER, SELFPAY ==
[2023-09-19 14:11] VITALS: BP 110/60; PULSE 107; TEMP 36.8; O2SAT 98; BMI 23.4
--- NOTE | 2023-09-19 14:11 | AM.OFFWIN_ITS ---
Intake Vital Signs 09/19/23 14:11 Height 5 ft 3 in Weight 132 lb BMI 23.4 BP 110/60 Blood Pressure Location Rt brachial Position Sitting Pulse 107 H Pulse Source Pulse Oximeter Temp 98.3 F Temp Source Oral Pulse Oximetry (%) 98 Oxygen Delivery Method Room Air Intake Visit Reasons: left side rib pain 4 days Intake Note: pt c/o LT side rib pain x 4 days Patient Tobacco Use Status: Never used Tobacco Allergies No Known Allergies Allergy (Verified 09/19/23 14:13) Do you need a note to return to daycare/school/sports/work: No HPI left side rib pain 4 days HPI Details 32-year-old female presents to the [facility] for a sick visit. Patient is complaining of rib pain on the left side of her chest for the past few days. Symptoms have discomfort under her breast. Patient has had cellulitis in the past. No nipple discharge. No history of trauma or human bite. [facility] Medical History Hemorrhoids Hematuria Chest heaviness Family history of esophageal cancer Thyroid disorder screening Cervical cancer screening History of gestational diabetes Headache in Gestational diabetes mellitus (GDM) Supervision of other normal Pelvic pain affecting Nausea and vomiting of , antepartum Decreased movement Supervision of normal in third trimester Poor growth complicating , antepartum Lactating mother Threatened labor at term IUD check up Family planning Encounter for general adult medical examination with abnormal findings Well woman exam with routine gynecological exam Well woman exam Adult general medical exam Asthma History of gestational diabetes Anxiety Surgical History Cellulitis History of incision and drainage Hx of wisdom tooth extraction Hx of dilation and curettage Family History Father Family hx-stroke History of esophageal cancer Mother Anxiety Maternal Grandmother Hx of congestive heart failure Hx of diabetes mellitus Maternal Grandfather Colon cancer Hx of diabetes mellitus Paternal Grandfather Cancer Sister Mental health disorder Maternal Aunt Substance use disorder Social History Household Members: Spouse and Children Housing: House Alcohol intake: never Patient Tobacco Use Status: Never used Tobacco e-Cigarette/Vaping Use: Never Used Second Hand Smoke Exposure: No service: No Current occupational status: employed Gender identity: Female Cognitive needs: No Hearing needs: No Vision needs: No Female Reproductive History Menstrual Age of Menarche: 16 Physical Exam Vital Signs: Last Vital Signs Temp 98.3 F 09/19/23 14:11 Pulse 107 H 09/19/23 14:11 BP 110/60 09/19/23 14:11 Pulse Ox 98 09/19/23 14:11 Oxygen Delivery Method Room Air 09/19/23 14:11 BMI result Body Mass Index 23.4 Const Other: Examination done with a female medical claims analyst in the room. General: cooperative and healthy appearing Nutritional Appearance: well nourished Orientation/consciousness: patient oriented x3 Limitations: no limitations HEENT Head: Yes normal to inspection Eyes General: appearance normal, both eyes and all related structures Neck Neck: Yes normal visual inspection Chest Other: Bilateral breast examined. No evidence of redness or erythema Chest palpation & inspection: normal palpation of entire chest wall Resp Effort & Inspection: normal respiratory effort Neuro General: patient oriented x3 Assessment & Plan Assessment & Plan (1) Chest pain: Code(s): R07.9 - Chest pain, unspecified Plan: No evidence of cellulitis seen. Chest x-ray was personally reviewed by me. Images were unremarkable. Most likely symptoms are related to a strain. Reassurance. No medications needed. Orders: Orders XR chest 2V Today R07.9 - Chest pain, unspecified Coding Level of Care Code Est Pt Level 4 (35909) Diagnoses Chest pain R07.9
== END 2023-09-19 15:17 | disposition home or self-care (01) ==
PROVIDERS: PCP Internal Medicine; Visit Provider Internal Medicine
DX: R07.9 Chest pain, unspecified (principal)
CPT/HCPCS: 99214

== ENCOUNTER 2023-09-19 14:37 | Outpatient (REF) | payer OTHER, SELFPAY ==
--- NOTE | ~2023-09-19 | XR_ITS ---
EXAMINATION: XR CHEST CLINICAL INFORMATION: Chest pain COMPARISON: Chest radiograph 04/24/2023 TECHNIQUE: 2 views of the chest were obtained. FINDINGS: The lungs are adequately expanded. No focal consolidation. No pleural effusions or pneumothorax. The cardiomediastinal silhouette is within normal limits. No acute osseous abnormality. XR/XR chest 2V IMPRESSION: No acute pulmonary disease.
== END 2023-09-19 14:38 | disposition home or self-care (01) ==
LOC: HO.HMGCX 14:37
PROVIDERS: PCP Internal Medicine; Visit Provider Internal Medicine
DX: R07.9 Chest pain, unspecified (principal)
CPT/HCPCS: 71046

== ENCOUNTER 2023-09-27 15:01 | Outpatient (AMB) | payer OTHER, SELFPAY ==
[2023-09-27 15:03] VITALS: BP 114/70; PULSE 101; O2SAT 98; BMI 23.6
--- NOTE | 2023-09-27 15:03 | A.OFFPC_ITS ---
Vital Signs 09/27/23 15:03 Height 5 ft 3 in Weight 133 lb 4 oz BMI 23.6 BP 114/70 Blood Pressure Location Rt brachial Position Sitting Pulse 101 H Pulse Source Pulse Oximeter Pulse Oximetry (%) 98 Oxygen Delivery Method Room Air Intake Visit Reasons: Annual PE resched Allergies No Known Allergies Allergy (Verified 09/27/23 15:03) Medication List - Last Reconciled 09/27/23 by Natasha Simmons MD betamethasone dipropionate 0.05% 1 appl topical DAILY chlorhexidine gluconate 4% (Hibiclens) topical levonorgestrel (Mirena) intrauterine sertraline 50 mg PO DAILY Tobacco use date assessed: 09/27/23 Dental Screening Dental Screen Date: 09/27/23 Did you have a dental visit in the last 12 months?: Yes Did you have a dental problem in the last 6 months where you did not have access to dental care?: No Was dental information given to patient?: Patient has dentist HPI Annual PE resched HPI Details Patient is a 32-year-old female came in today physical examination Patient says that she is established with Dr. Snyder She had a urine test done in the office and it was positive for blood Was repeat it again and it came positive again Patient is requesting a UA done in lab I have added that to her annual fasting labs She was referred to Urology from OBGYN office She is seeing Dr. Estrada psychiatrist for anxiety and is taking sertraline Continued to have elevated heart rate I have added thyroid test as well. It could be secondary to anxiety also PFSH Medical History Encounter for general adult medical examination with abnormal findings Hematuria Hemorrhoids Chest heaviness Family history of esophageal cancer Thyroid disorder screening Cervical cancer screening History of gestational diabetes Headache in Gestational diabetes mellitus (GDM) Supervision of other normal Pelvic pain affecting Nausea and vomiting of , antepartum Decreased movement Supervision of normal in third trimester Poor growth complicating , antepartum Lactating mother Threatened labor at term IUD check up Family planning Well woman exam with routine gynecological exam Well woman exam Adult general medical exam Asthma History of gestational diabetes Anxiety Surgical History Cellulitis History of incision and drainage Hx of wisdom tooth extraction Hx of dilation and curettage Family History Father Family hx-stroke History of esophageal cancer Mother Anxiety Maternal Grandmother Hx of congestive heart failure Hx of diabetes mellitus Maternal Grandfather Colon cancer Hx of diabetes mellitus Paternal Grandfather Cancer Sister Mental health disorder Maternal Aunt Substance use disorder Social History Household Members: Spouse and Children Housing: House Alcohol intake: never Patient Tobacco Use Status: Never used Tobacco e-Cigarette/Vaping Use: Never Used Second Hand Smoke Exposure: No service: No Current occupational status: employed Gender identity: Female Cognitive needs: No Hearing needs: No Vision needs: No Female Reproductive History Menstrual Age of Menarche: 16 Questionnaire PHQ-9 Over the last 2 weeks, how often have you been bothered by any of the following problems? 1. Little interest or pleasure in doing things: not at all 2. Feeling down, depressed, or hopeless: not at all 3. Trouble falling or staying asleep, or sleeping too much: several days 4. Feeling tired or having little energy: not at all 5. Poor appetite or overeating: not at all 6. Feeling bad about yourself - or that you are a failure or have let yourself or your family down: not at all 7. Trouble concentrating on things, such as reading the newspaper or watching television: not at all 8. Moving or speaking so slowly that other people could have noticed. Or the opposite - being so fidgety or restless that you have been moving around a lot more than usual: not at all 9. Thoughts that you would be better off or of hurting yourself in some way: not at all Total score: 1 Depression Screening Interpretation: Negative Depression Screening Done: Yes 41437 - PHQ-9 Billing: Yes Source: Developed by Drs. Americo Gnog, Saloni Ordoñez, Constantino Pantoja and colleagues, with an educational cherry from [employer]. Thrive Questionnaire Date Thrive assessed: 09/27/23 I am a: Patient What is your living situation today?: I have a steady place to live Within the past 12 months, did the food you bought not last and you didn't have the money to get more?: Never true Within the past 12 months, did you worry whether your food would run out before you got money to buy more?: Never true Do you have trouble paying for medicines?: No Do you have trouble getting transportation to medical appointments?: No Do you have trouble paying your heating and electricity bill?: No Do you have trouble taking care of your child, family member or friend?: No Do you have trouble with day-to-day activities such as bathing, preparing meals, shopping, managing finances, etc.?: No Are you currently unemployed and looking for a job?: No Are you interested in more education?: No Please select the resources that you would like help with: None Currently or been in a relationship where the following occur: No concerns reported THRIVE Score: 0 AUDIT C Alcohol Use Questionnaire (AUDIT-C) 1. How often do you have a drink containing alcohol?: Monthly or less 2. How many drinks containing alcohol do you have on a typical day when you are drinking?: 1 or 2 3. How often do you have six or more drinks on one occasion?: Never Total Score: 1 Score Reviewed/Action Taken: Yes HENOK-7 AMB Questionnaire HENOK-7 Date HENOK - 7 assessed: 09/27/23 Feeling nervous, anxious, or on edge: 1 = Several days Not being able to stop or control worryin = Several days Worrying too much about different things: 1 = Several days Trouble relaxin = Not at all Being so restless that it is hard to sit still: 1 = Several days Becoming easily annoyed or irritable: 0 = Not at all Feeling afraid as if something awful might happen: 1 = Several days Total HENOK-7 score (0-4 normal; 5-9 mild; 10-14 moderate; 15-21 severe): 5 Source: Developed by Drs. Americo Gong, Saloni Ordoñez, Constantino Pantoja and colleagues, with an educational cherry from [employer]. HENOK-7 Assessment Billing HENOK-7 Assessment Tool: HENOK-7 Assessment 87474 Review of Systems Const Denies chills, Denies fever(s) and Denies headache(s) Eyes Denies blurry vision ENT Denies headache(s), Denies nasal discharge, Denies nasal obstruction, Denies odynophagia and Denies sinus pain Card Denies chest pain at rest and Denies chest pain with activity Resp Denies cough and Denies hemoptysis GI Denies diarrhea, Denies odynophagia, Denies vomiting and Denies hematemesis Reports as per HPI Musc Denies abnormal gait Skin/Breast Reports as per HPI Neuro Denies Neuro-related abnormal movements, Denies Abnormal speech present, Denies abnormal gait, Denies headache(s) and Denies Sensory deficit (Neuro) Psych Denies mood swings and Denies paranoia Endo Reports as per HPI Danny/Lymph Reports as per HPI Aller/Immun Reports as per HPI Physical exam (Primary Care) Vital Signs: Last Vital Signs Pulse 101 H 09/27/23 15:03 BP 114/70 09/27/23 15:03 Pulse Ox 98 09/27/23 15:03 Oxygen Delivery Method Room Air 09/27/23 15:03 BMI result Body Mass Index 23.6 Tobacco/Smoking Status: Tobacco use Status Tobacco use date assessed 09/27/23 09/27/23 15:06 Patient Tobacco Use Status Never used Tobacco 09/27/23 15:06 e-Cigarette/Vaping Use Never Used 09/27/23 15:06 PHQ-9: PHQ-9 Score PHQ-9: Total score 1 09/27/23 15:09 Depression Screening Interpretation: Negative Thrive Assessment: Date of Thrive Assessment Date Thrive assessed 09/27/23 09/27/23 15:06 Currently or been in a relationship where the following occur: No concerns reported Const General: cooperative, comfortable and no acute distress Orientation/consciousness: patient oriented x3 [facility] Head: Yes normocephalic and Yes atraumatic Eyes General: appearance normal, both eyes and all related structures Pupils: Equal, round and reactive pupils present EOM: EOMs intact bilaterally Neck Neck: Yes supple and No lymphadenopathy Thyroid: Thyroid normal Lymphatic: no lymphadenopathy noted Resp Effort & Inspection: normal respiratory effort and able to speak in complete sentences Auscultation: clear to auscultation bilaterally Cardio Heart sounds: S1 normal heart sound present and S2 normal heart sound present GI Palpation (GI): Soft to palpation and nontender Auscultation: normal bowel sounds General: Yes no CVA tenderness Back/Spine/Pelvis Back: no CVA tenderness Skin General skin exam: elasticity normal and turgor normal Neuro General: patient oriented x3 and gait normal Cranial nerves: Yes Equal, round and reactive pupils present Speech: No Abnormal speech present Sensory Exam: No Sensory deficit (Neuro) Coordination: tandem gait normal and Romberg test negative Extrem General: Yes normal exam except as noted and No edema Assessment and Plan Assessment & Plan (1) Encounter for general adult medical examination with abnormal findings: Code(s): Z00.01 - Encounter for general adult medical examination with abnormal findings (2) Hematuria: Code(s): R31.9 - Hematuria, unspecified Qualifiers: Hematuria type: other microscopic Qualified Code(s): R31.29 - Other microscopic hematuria (3) Tachycardia: Code(s): R00.0 - Tachycardia, unspecified Plan Patient is a 32-year-old female came in today physical examination Patient says that she is established with Dr. Snyder She had a urine test done in the office and it was positive for blood Was repeat it again and it came positive again Patient is requesting a UA done in lab I have added that to her annual fasting labs She was referred to Urology from OBGYN office She is seeing Dr. Estrada psychiatrist for anxiety and is taking sertraline Continued to have elevated heart rate I have added thyroid test as well. It could be secondary to anxiety also Orders: Orders Lipid Panel Today R31.9 - Hematuria, unspecified, Z00.01 - Encounter for general adult medical examination with abnormal findings TSH reflex Free T4 Today R00.0 - Tachycardia, unspecified Complete Blood Count Auto Diff Today R31.9 - Hematuria, unspecified, Z00.01 - Encounter for general adult medical examination with abnormal findings Comprehensive Boley. Panel Fast Today R31.9 - Hematuria, unspecified, Z00.01 - Encounter for general adult medical examination with abnormal findings UA CC w/rflx Micro + Cult Today R31.9 - Hematuria, unspecified, Z00.01 - Encounter for general adult medical examination with abnormal findings Coding Level of Care Code Est Pt Level 3 (10577) Est Pt Prev Care 18-39y(75024) Diagnoses Encounter for general adult medical examination with abnormal findings Z00.01 Other microscopic hematuria R31.29 Hematuria type: other microscopic Tachycardia R00.0 Additional Codes HENOK-7 Assessment Billing - HENOK-7 Assessment Tool: HENOK-7 Assessment [id number] ([id number])
== END 2023-09-27 16:15 | disposition home or self-care (01) ==
PROVIDERS: PCP Internal Medicine; Visit Provider Internal Medicine
DX: Z00.01 Encounter for general adult medical examination with abnormal findings (principal); R31.29 Other microscopic hematuria; R00.0 Tachycardia, unspecified
CPT/HCPCS: 99213; 99395

== ENCOUNTER 2023-09-28 07:09 | Outpatient (REF) | payer OTHER, SELFPAY ==
[2023-09-28 07:21] LABS: MANUAL DIFF FLAG NO
[2023-09-28 07:50] LABS: Basophils Percent Auto 0.7 % (0-2); Eosinophils Absolute Auto 0.1 X10*3/uL (0.0-0.4); Eosinophils Percent Auto 1.4 % (0-4); Hematocrit 39.9 % (37.0-47.0); Hemoglobin 14.2 g/dl (12.0-16.0); Imm Gran Abs Auto 0.01 X10*3/uL (0.00-0.03); Imm Gran Pct Auto 0.2 % (0.0-0.4); Lymphocytes Absolute Auto 1.3 X10*3/uL (1.2-4.9); Mean Corpuscular HGB Conc 35.6 g/dl (31.0-35.0); Mean Corpuscular Hemoglobin 31.6 pg (27.0-33.0); Mean Corpuscular Volume 88.9 fL (80.0-98.0); Mean Platelet Volume 10.1 fL (9.4-12.3); Monocytes Absolute Auto 0.4 X10*3/uL (0.1-1.2); Monocytes Percent Auto 8.4 % (2-11); Neutrophils Absolute Auto 2.4 x10*3/uL (2.0-8.3); Neutrophils Percent Auto 58.3 % (45-73); Platelet Count 199 X10*3/uL (160-400); Red Blood Count 4.49 X10*6/uL (4.20-5.50); Red Cell Distribution Width 12.9 % (11.0-16.0); White Blood Count 4.2 X10*3/uL (4.8-10.8)
[2023-09-28 08:21] LABS: Alanine Aminotransferase 11 U/L (0-31); Albumin Level 4.4 g/dL (3.5-5.0); Alkaline Phosphatase 53 U/L (39-117); Anion Gap 11 (12-20); Aspartate Amino Transferase 14 U/L (5-31); Bilirubin Total 2.3 mg/dL (0.0-1.0); Blood Urea Nitrogen 11 mg/dL (9-16); Calcium 9.3 mg/dL (8.4-10.2); Carbon Dioxide 24 mmol/L (22-29); Chloride 108 mmol/L (96-108); Cholesterol 160 mg/dL (<200); Estimated Glomerular Filt Rate > 60; Glucose Fasting 92 mg/dL (60-99); HDL Cholesterol 51 mg/dL (>40); LDL Cholesterol Calculated 95 mg/dL (<100); Sodium 139 mmol/L (135-145); Total Protein 7.1 g/dL (6.5-8.0); Triglycerides 70 mg/dL (<150)
[2023-09-28 08:37] LABS: TSH reflex Free T4 1.61 uIU/mL (0.32-4.0)
[2023-09-28 08:53] LABS: Appearance Urine Clear; Color Urine Yellow; Glucose Urine UA Negative (Negative); Leukocyte Esterase Urine Negative (Negative); Nitrite Urine Negative (Negative); PH 7.5 (5.0-9.0); Specific Gravity - Urine 1.015 (1.005-1.025); Urine Blood Negative (Negative); Urine Ketones Negative (Negative); Urine Protein Negative (Neg-Trace)
== END 2023-09-28 07:10 | disposition home or self-care (01) ==
LOC: HO.LAB 07:09
PROVIDERS: PCP Internal Medicine; Visit Provider Internal Medicine
DX: Z00.01 Encounter for general adult medical examination with abnormal findings (principal); R31.9 Hematuria, unspecified; R00.0 Tachycardia, unspecified
CPT/HCPCS: 36415; 80053; 80061; 81003; 84443; 85025

== ENCOUNTER 2023-10-23 13:30 | Outpatient (AMB) | payer OTHER, SELFPAY ==
--- NOTE | 2023-10-23 14:10 | A.OFFVIS_ITS ---
Intake Visit Reasons: microscopic hematuria Intake Note: New patient is present for Microscopic Hematuria without Infection Patient states that she does not see any blood in her urine only when the urine is tested Denies History of Smoking Patient reports that since the past months she has been experiencing Frequency of urination PVR 0 Tree Puller Required: No Allergies No Known Allergies Allergy (Verified 10/23/23 14:22) HPI Comments Details: Emily is here for evaluation for microscopic hematuria. She states that it was noted by her long winder tender and she was referred for further evaluation. She states that there was evaluation of her IUD. She states that she is noticing some urinary frequency. Denies nicotine use. CT abdomen and pelvis with and without IV contrast scheduled for November 12. I will send urine for cytology and urine culture. Will review results and determine plan for further evaluation with cystoscopy. [facility] Medical History Encounter for general adult medical examination with abnormal findings Hematuria Hemorrhoids Chest heaviness Family history of esophageal cancer Thyroid disorder screening Cervical cancer screening History of gestational diabetes Headache in Gestational diabetes mellitus (GDM) Supervision of other normal Pelvic pain affecting Nausea and vomiting of , antepartum Decreased movement Supervision of normal in third trimester Poor growth complicating , antepartum Lactating mother Threatened labor at term IUD check up Family planning Well woman exam with routine gynecological exam Well woman exam Adult general medical exam Asthma History of gestational diabetes Anxiety Surgical History Cellulitis History of incision and drainage Hx of wisdom tooth extraction Hx of dilation and curettage Family History Father Family hx-stroke History of esophageal cancer Mother Anxiety Maternal Grandmother Hx of congestive heart failure Hx of diabetes mellitus Maternal Grandfather Colon cancer Hx of diabetes mellitus Paternal Grandfather Cancer Sister Mental health disorder Maternal Aunt Substance use disorder Social History Household Members: Spouse and Children Housing: House Alcohol intake: never Patient Tobacco Use Status: Never used Tobacco e-Cigarette/Vaping Use: Never Used Second Hand Smoke Exposure: No service: No Current occupational status: employed Gender identity: Female Cognitive needs: No Hearing needs: No Vision needs: No Female Reproductive History Menstrual Age of Menarche: 16 Review of Systems Const All systems reviewed & are unremarkable except as noted in HPI and below Reports no additional complaints Eyes Reports no additional complaints ENT Reports no additional complaints Card Reports no additional complaints Resp Reports no additional complaints GI Reports no additional complaints Reports as per HPI Musc Reports no additional complaints Skin/Breast Reports system reviewed and no additional complaints, except as documented Neuro Reports no additional complaints Psych Reports no additional complaints Endo Reports no additional complaints Danny/Lymph Reports no additional complaints Aller/Immun Reports no additional complaints Physical Exam Const General: cooperative, healthy appearing and no acute distress Orientation/consciousness: patient oriented x3 HEENT Head: Yes normal to inspection, Yes normocephalic and Yes atraumatic Eyes Conjunctivae: conjunctivae normal Neck Neck: Yes normal visual inspection and Yes trachea midline Chest Chest palpation & inspection: normal inspection of the chest Resp Effort & Inspection: normal respiratory effort Cardio Rate: regular rate GI Inspection: Yes normal to inspection Neuro General: patient oriented x3 Psych Appearance: grossly normal Office Procedures Post Void Residual Post Residual Void Post Void Residual (PVR): 0 [id number] Void Residual by ultrasound Results AMB Urinalysis, Automated UA Leukoctes 0 Tamela/uL Last Edit by Carmita Avila [facility] on 10/23/23 14:24 UA Nitrite Negative Last Edit by Carmita Avila [facility] on 10/23/23 14:24 UA Urobilinogen 0.2 mg/dL Last Edit by Carmita Avila [facility] on 10/23/23 14:2 4 UA Protein 0 mg/dL Last Edit by Carmita Avila [facility] on 10/23/23 14:24 UA pH 6.5 Last Edit by Carmita Avila [facility] on 10/23/23 14:24 UA Blood 0 Justin/uL Last Edit by Carmita Avila [facility] on 10/23/23 14:24 UA Specific Weldon 1.010 Last Edit by Carmita Avila [facility] on 10/23/23 14: 24 UA Ketone Negative Last Edit by Carmita Avila [facility] on 10/23/23 14:24 UA Bilirubin 0 mg/dL Last Edit by Carmita Avila [facility] on 10/23/23 14:24 UA Glucose 0 mg/dL Last Edit by ROB Quintana on 10/23/23 14:24 Results Reviewed Results Reviewed: Laboratory Last Values Urine pH (Auto) 6.5 10/23/23 14:23 Specific Weldon (Auto) 1.010 10/23/23 14:23 Urine Protein (Auto) 0 mg/dL 10/23/23 14:23 Glucose (UA)(Auto) 0 mg/dL 10/23/23 14:23 Urine Ketones (Auto) Negative 10/23/23 14:23 Urine Blood (Auto) 0 Justin/uL 10/23/23 14:23 Urine Nitrite (Auto) Negative 10/23/23 14:23 Urine Bilirubin (Auto) 0 mg/dL 10/23/23 14:23 Urine Urobilinogen (Auto) 0.2 mg/dL 10/23/23 14:23 Leukocyte Esterase (Auto) 0 Tamela/uL 10/23/23 14:23 Assessment & Plan Assessment & Plan (1) Microscopic hematuria: Code(s): R31.29 - Other microscopic hematuria Category: Medical (2) Urinary frequency: Code(s): R35.0 - Frequency of micturition Category: Medical Plan CT abdomen and pelvis with and without IV contrast scheduled for November 12. I will send urine for cytology and urine culture. Will review results and determine plan for further evaluation with cystoscopy Orders: Orders AMB Post Void Residual by ultrasound Today R35.0 - Frequency of micturition AMB Urinalysis Automated Today Z13.9 - Encounter for screening, unspecified Patient Instructions: The patient had an opportunity to ask questions regarding treatment plan. The patient expressed understanding and agreement with the above treatment plan. The patient is aware they should contact our office by phone for worsening of their current condition or the appearance of new symptoms. Compliance is encouraged with any medications and followup testing that is ordered. It is a privilege to be allowed the opportunity to participate in the urologic care of your patient. If you have any questions or concerns regarding treatment for the above conditions please do not hesitate to contact me. The office telephone contact is [phone]. This note is constructed in part using voice recognition software. While every effort has been made to ensure accuracy reliability technician errors may have been included. Yours sincerely, Brittani Miranda MD Coding Level of Care Code New Pt Level 4 (78524) Diagnoses Microscopic hematuria R31.29 Urinary frequency R35.0 CPT Codes Post Residual Void - PVR CPT Code: 84175-Etam Void Residual by ultrasound ([id number])
== END 2023-10-23 15:01 | disposition home or self-care (01) ==
PROVIDERS: PCP Internal Medicine; Visit Provider Urology
DX: R31.29 Other microscopic hematuria (principal); R35.0 Frequency of micturition; Z13.9 Encounter for screening, unspecified
CPT/HCPCS: 99204

== ENCOUNTER → 2023-10-23 13:30 | Outpatient (BNVA) | payer OTHER, SELFPAY | PROVIDERS: PCP Internal Medicine; Visit Provider Urology | DX: R31.29 Other microscopic hematuria (principal); R35.0 Frequency of micturition | CPT/HCPCS: 51798; 81003 ==

== ENCOUNTER 2023-10-27 08:12 | Outpatient (AMB) | payer OTHER, SELFPAY ==
[2023-10-27 08:14] VITALS: BP 120/64; PULSE 75; BMI 23.5
--- NOTE | 2023-10-27 08:14 | MHC.OFFVIS ---
Vital Signs 10/27/23 08:14 Height 5 ft 3 in Weight 132 lb 11.492 oz BMI 23.5 BP 120/64 Blood Pressure Location Lt brachial Position Sitting Pulse 75 Pulse Source Pulse Oximeter Intake Visit Reasons: f/u Fiberglass Finisher Required: No Accompanied by: Self / Same As Patient Allergies No Known Allergies Allergy (Verified 10/23/23 14:22) Medication List - Last Reconciled 10/27/23 by Melly Parker DIRECTOR OF EARLY CHILDHOOD EDUCATION-C betamethasone dipropionate 0.05% 1 appl topical DAILY chlorhexidine gluconate 4% (Hibiclens) topical levonorgestrel (Mirena) intrauterine sertraline 50 mg PO DAILY HPI HPI f/u: Details: Ladi is a 32-year-old female with no cardiac history who has undergone evaluation for heart palpitations and chest discomfort with out cardiac findings. She now presents for follow-up with report ongoing intermittent chest Today she reports that she she has been getting intermittent heaviness/pressure in her chest that she notices periodically without pattern. It is not brought on by physical activity. It can occur at rest and will last a few minutes before it seems to resolve. She has no associated symptoms that does cause her much anxiety. She is very concerned about her overall health. Her heart palpitations have lessened some. She notices more elevated heart rates and heart pounding when she is doing physical activity. No sustained rapid or irregular rates. No clear sudden start and stop of the palpitation. No lightheadedness, presyncope, syncope, falls. She has mild shortness of breath with exertion which is not new. No PND, orthopnea or edema. Continues to avoid caffeinated beverages. Maintains good hydration. [facility] Medical History Encounter for general adult medical examination with abnormal findings Hematuria Hemorrhoids Chest heaviness Family history of esophageal cancer Thyroid disorder screening Cervical cancer screening History of gestational diabetes Headache in Gestational diabetes mellitus (GDM) Supervision of other normal Pelvic pain affecting Nausea and vomiting of , antepartum Decreased movement Supervision of normal in third trimester Poor growth complicating , antepartum Lactating mother Threatened labor at term IUD check up Family planning Well woman exam with routine gynecological exam Well woman exam Adult general medical exam Asthma History of gestational diabetes Anxiety Surgical History Cellulitis History of incision and drainage Hx of wisdom tooth extraction Hx of dilation and curettage Family History Father Family hx-stroke History of esophageal cancer Mother Anxiety Maternal Grandmother Hx of congestive heart failure Hx of diabetes mellitus Maternal Grandfather Colon cancer Hx of diabetes mellitus Paternal Grandfather Cancer Sister Mental health disorder Maternal Aunt Substance use disorder Social History Household Members: Spouse and Children Housing: House Alcohol intake: never Patient Tobacco Use Status: Never used Tobacco e-Cigarette/Vaping Use: Never Used Second Hand Smoke Exposure: No service: No Current occupational status: employed Gender identity: Female Cognitive needs: No Hearing needs: No Vision needs: No Female Reproductive History Menstrual Age of Menarche: 16 Review of Systems Const All systems reviewed & are unremarkable except as noted in HPI and below Denies chills, Denies fatigue, Denies fever(s), Denies frequent falls, Denies weakness, Denies weight gain and Denies weight loss ENT Denies dizziness Card Reports chest pain (pressure), Reports chest pain at rest, Denies leg edema, Denies lightheadedness, Denies palpitations, Denies dyspnea and Denies dyspnea on exertion Resp Denies cough, Denies dyspnea and Denies dyspnea on exertion GI Denies hematochezia Musc Denies abnormal gait, Denies muscle weakness, Denies numbness, Denies radiating pain into limb and Denies tingling Neuro Denies abnormal gait, Denies dizziness, Denies frequent falls, Denies numbness, Denies tingling and Denies weakness Endo Denies fatigue and Denies palpitations Physical Exam Vital Signs: Last Vital Signs Pulse 75 10/27/23 08:14 BP 120/64 10/27/23 08:14 BMI result Body Mass Index 23.5 Const General: cooperative, healthy appearing, comfortable and no acute distress Orientation/consciousness: patient oriented x3 HEENT Head: Yes normal to inspection Chest Chest palpation & inspection: normal inspection of the chest Resp Effort & Inspection: normal respiratory effort Auscultation: clear to auscultation bilaterally Cardio Jugular venous distension: no JVD Rate: regular rate Rhythm: regular rhythm Neuro General: patient oriented x3 Extrem General: Yes normal to inspection, No no pedal edema and No calf tenderness Psych Appearance: grossly normal Mental Status: mental status grossly normal Speech and movement: Normal speech and movement present Office Procedures EKG Details: Today, read by me, normal sinus rhythm with sinus arrhythmia, rate 62, QTC 375 millisecond [id number], Complete Assessment & Plan Assessment & Plan (1) Chest heaviness: Code(s): R07.89 - Other chest pain Category: Medical Plan: Patient reports intermittent heaviness/pressure in her chest. This symptom has been intermittent for some time and is nonexertional. She has a very low cardiac risk profile and no cardiac history. EKGs shows sinus rhythm without acute ST or T-wave abnormalities. Echocardiogram done 10/26/2022 showed EF 67%, no valve abnormalities. An exercise stress test was done on 03/14/2023 with exercise 8 minutes with report of chest discomfort during the 5 to 7 minute luly of exercise then her symptom resolved for the last minute of exercise. She had no EKG changes of ischemia. EKG done today showing normal sinus rhythm with sinus arrhythmia rate 62. Today she reports ongoing intermittent chest symptoms. It is still random occurrence. Offered reassurance that there was no evidence her symptom is cardiac in nature. She does have high anxiety about her physical health which can be a contributing factor. Spent time discussing the true nature of angina and the signs and symptoms of angina. Instructed to call if her symptoms are worsening or she develops symptoms brought on by physical activity, at which time a stress echocardiogram could be done for further evaluation. Emergency care if ever needed for symptoms. Cardiology follow-up 6 months, sooner if needed. (2) Palpitations: Code(s): R00.2 - Palpitations Category: Medical Plan: Reports of heart palpitations over the last several months, where her feels like her heart is beating faster and hard. She can feel this up into her neck. She is concerned that the rates are inappropriate for the activity she is doing. Holter monitor done 10/26/2022 for 3 days shows sinus rhythm with average heart rate 78, heart rate range 46 to 176, rare ventricular and supraventricular ectopy, 14% of the time heart rate greater than 100. Echo had showed normal EF. Test results reviewed with her at that time. Offered reassurance. EKG today showing sinus rhythm with sinus arrhythmia, rate 62. Today she reports her palpitations have lessened. She avoids all caffeinated beverages. Reviewed ongoing good hydration, getting adequate rest, increasing her physical activity. Informed her that heart rate going up with physical activity is a normal physiological response. Plan Time spent on chart review, documentation, interview and assessment Coding Level of Care Code Est Pt Level 3 (62173) Diagnoses Chest heaviness R07.89 Palpitations R00.2 CPT Codes EKG - CPT: 48225-[id number], Complete ([id number]) Time Spent (min) 24
== END 2023-10-27 08:48 | disposition home or self-care (01) ==
PROVIDERS: PCP Internal Medicine; Visit Provider Nurse Practitioner Family
DX: R07.89 Other chest pain (principal); R00.2 Palpitations
CPT/HCPCS: 93010; 99213

== ENCOUNTER → 2023-10-27 08:12 | Outpatient (BNVA) | payer OTHER, SELFPAY | PROVIDERS: PCP Internal Medicine; Visit Provider Nurse Practitioner Family | DX: R07.89 Other chest pain (principal); R00.2 Palpitations | CPT/HCPCS: 93005 ==

== ENCOUNTER 2023-11-03 08:37 | Outpatient (REF) | payer OTHER, SELFPAY ==
[2023-11-03 09:33] LABS: Urine Cytology See Pathology rpt
== END 2023-11-03 08:38 | disposition home or self-care (01) ==
LOC: HO.LAB 08:37
PROVIDERS: PCP Internal Medicine; Visit Provider Urology
DX: R31.29 Other microscopic hematuria (principal); R35.0 Frequency of micturition
CPT/HCPCS: 87086; 88112

== ENCOUNTER 2023-11-13 07:59 | Outpatient (REF) | payer OTHER, SELFPAY ==
--- NOTE | ~2023-11-13 | CT_ITS ---
EXAMINATION: CT ABDOMEN AND PELVIS WITHOUT AND WITH CONTRAST CLINICAL INFORMATION: Microscopic hematuria. COMPARISON: None available. TECHNIQUE: Multidetector volumetric imaging was performed of the abdomen and pelvis before and after the IV administration of 85 mL of Omnipaque 350 intravenous contrast. Sagittal and coronal reformatted images were obtained on the technologist's workstation. This CT examination was performed using dose optimization techniques as appropriate, variously including the following: *Automated exposure control *Adjustment of mA and/or kV according to patient size (this includes techniques or standardized protocols for targeted exams where dose is matched to indication/reason for exam; i.e. extremities or head) *Use of iterative reconstruction technique DLP: 196 mGy-cm FINDINGS: LUNG BASES: The lung bases appear clear, with no evidence of inflammation or nodules. LIVER, GALLBLADDER, AND BILIARY TREE: The liver appears unremarkable in size, shape, and attenuation. No focal hepatic lesion or biliary ductal dilatation is appreciated. Unremarkable appearance of the gallbladder. PANCREAS: Unremarkable SPLEEN: Measures 13.5 cm in sagittal dimension. No focal lesion identified. ADRENAL GLANDS: Unremarkable KIDNEYS AND URETERS: The kidneys appear unremarkable in size, shape, and attenuation. No hydronephrosis, hydroureter, or calculi seen. BLADDER: Poorly distended, therefore suboptimally evaluated. Grossly unremarkable. GASTROINTESTINAL TRACT: The small and large bowel appear unremarkable. ABDOMINAL WALL: No significant hernia is appreciated. LYMPH NODES: No evidence of adenopathy by size criteria. VASCULAR: Unremarkable PELVIC VISCERA: Retroverted uterus. IUD. OSSEOUS STRUCTURES: Unremarkable CT/CT abdomen pelvis wo/w IV con IMPRESSION: No urinary tract abnormality identified. Mild splenomegaly. Electronically signed by: Jose Bain MD 11/22/2023 08:54 AM EDT
[2023-11-13] MEDS: iohexoL 350 MG/ML 100 ML INFUS..BTL 85 ML IV (08:35)
== END 2023-11-13 08:00 | disposition home or self-care (01) ==
LOC: HO.CT 07:59
PROVIDERS: PCP Internal Medicine; Visit Provider Obstetrics & Gynecology
DX: R31.29 Other microscopic hematuria (principal)
CPT/HCPCS: 74178; Q9967

== ENCOUNTER 2023-11-22 13:21 | Outpatient (AMB) | payer OTHER, SELFPAY ==
--- NOTE | 2023-11-22 13:13 | A.OFFVIS_ITS ---
Intake Visit Reasons: CT follow up Intake Note: Patient is present for CT F/U Urology Medication:NONE Antibiotic Allergy:NONE Blood Thinner:NONE Computer Graphics Illustrator Required: No Allergies No Known Allergies Allergy (Verified 11/22/23 13:13) HPI Comments Details: 11/22/23-Emily was referred due to microscopic hematuria and has telehealth follow-up to review x-ray results. She had a CT abdomen and pelvis on 11/13/2023-I have discussed with the patient that urinary tract is within normal limits. I discussed that a urine was sent for cytology which also came back negative for malignant cells. The patient currently denies any irritative voiding symptoms. Plan is for follow-up on a p.r.n. basis. Review of chart: 10/23/23 Emily is here for evaluation for microscopic hematuria. She states that it was noted by her care giver and she was referred for further evaluation. She states that there was evaluation of her IUD. She states that she is noticing some urinary frequency. Denies nicotine use. CT abdomen and pelvis with and without IV contrast scheduled for November 12. I will send urine for cytology and urine culture. Will review results and determine plan for further evaluation with cystoscopy. [facility] Medical History Encounter for general adult medical examination with abnormal findings Hematuria Hemorrhoids Chest heaviness Family history of esophageal cancer Thyroid disorder screening Cervical cancer screening History of gestational diabetes Headache in Gestational diabetes mellitus (GDM) Supervision of other normal Pelvic pain affecting Nausea and vomiting of , antepartum Decreased movement Supervision of normal in third trimester Poor growth complicating , antepartum Lactating mother Threatened labor at term IUD check up Family planning Well woman exam with routine gynecological exam Well woman exam Adult general medical exam Asthma History of gestational diabetes Anxiety Surgical History Cellulitis History of incision and drainage Hx of wisdom tooth extraction Hx of dilation and curettage Family History Father Family hx-stroke History of esophageal cancer Mother Anxiety Maternal Grandmother Hx of congestive heart failure Hx of diabetes mellitus Maternal Grandfather Colon cancer Hx of diabetes mellitus Paternal Grandfather Cancer Sister Mental health disorder Maternal Aunt Substance use disorder Social History Household Members: Spouse and Children Housing: House Alcohol intake: never Patient Tobacco Use Status: Never used Tobacco e-Cigarette/Vaping Use: Never Used Second Hand Smoke Exposure: No service: No Current occupational status: employed Gender identity: Female Cognitive needs: No Hearing needs: No Vision needs: No Female Reproductive History Menstrual Age of Menarche: 16 Review of Systems Const All systems reviewed & are unremarkable except as noted in HPI and below Reports no additional complaints Eyes Reports no additional complaints ENT Reports no additional complaints Card Reports no additional complaints Resp Reports no additional complaints GI Reports no additional complaints Reports as per HPI Musc Reports no additional complaints Skin/Breast Reports system reviewed and no additional complaints, except as documented Neuro Reports no additional complaints Psych Reports no additional complaints Endo Reports no additional complaints Danny/Lymph Reports no additional complaints Aller/Immun Reports no additional complaints Telehealth Telehealth Telehealth Platform: [employer] Location of provider rendering services: practice address Location of patient: address on file Patient Identification confirmed using: Name, : Yes Telehealth method: voice only Patient verbally consented to treatment: Yes Patient verbally consented to billing insurance company: Yes Patient informed of any privacy concerns related to visit: Yes Minutes spent on Phone/Video with Pt.: 12 Results Reviewed Results Reviewed: Date of Service: 11/13/23 CT ABDOMEN AND PELVIS WITHOUT AND WITH CONTRAST CLINICAL INFORMATION: Microscopic hematuria. COMPARISON: None available. TECHNIQUE: Multidetector volumetric imaging was performed of the abdomen and pelvis before and after the IV administration of 85 mL of Omnipaque 350 intravenous contrast. Sagittal and coronal reformatted images were obtained on the technologist's workstation. This CT examination was performed using dose optimization techniques as appropriate, variously including the following: *Automated exposure control *Adjustment of mA and/or kV according to patient size (this includes techniques or standardized protocols for targeted exams where dose is matched to indication/reason for exam; i.e. extremities or head) *Use of iterative reconstruction technique DLP: 196 mGy-cm FINDINGS: LUNG BASES: The lung bases appear clear, with no evidence of inflammation or nodules. LIVER, GALLBLADDER, AND BILIARY TREE: The liver appears unremarkable in size, shape, and attenuation. No focal hepatic lesion or biliary ductal dilatation is appreciated. Unremarkable appearance of the gallbladder. PANCREAS: Unremarkable SPLEEN: Measures 13.5 cm in sagittal dimension. No focal lesion identified. ADRENAL GLANDS: Unremarkable KIDNEYS AND URETERS: The kidneys appear unremarkable in size, shape, and attenuation. No hydronephrosis, hydroureter, or calculi seen. BLADDER: Poorly distended, therefore suboptimally evaluated. Grossly unremarkable. GASTROINTESTINAL TRACT: The small and large bowel appear unremarkable. ABDOMINAL WALL: No significant hernia is appreciated. LYMPH NODES: No evidence of adenopathy by size criteria. VASCULAR: Unremarkable PELVIC VISCERA: Retroverted uterus. IUD. OSSEOUS STRUCTURES: Unremarkable IMPRESSION: No urinary tract abnormality identified. Mild splenomegaly. Collected: 11/03/23 Location: .LAB Received: 11/03/23 Diagnosis Urine: Negative for high-grade urothelial carcinoma. See comment. COMMENT: Cellular specimen consisting of squamous cells and rare acute inflammatory cells. Clinical History Other microscopic hematuria Material Received Urine Gross Description Received is 72 cc of clear yellow fluid from which a ThinPrep slide is prepared. Assessment & Plan Assessment & Plan (1) Microscopic hematuria: Code(s): R31.29 - Other microscopic hematuria Category: Medical Plan CT abdomen and pelvis on 11/13/2023-I have discussed with the patient that urinary tract is within normal limits. I discussed that a urine was sent for cytology which also came back negative for malignant cells. The patient currently denies any irritative voiding symptoms. Plan is for follow-up on a p.r.n. basis. Patient Instructions: The patient had an opportunity to ask questions regarding treatment plan. The patient expressed understanding and agreement with the above treatment plan. The patient is aware they should contact our office by phone for worsening of their current condition or the appearance of new symptoms. Compliance is encouraged with any medications and followup testing that is ordered. It is a privilege to be allowed the opportunity to participate in the urologic care of your patient. If you have any questions or concerns regarding treatment for the above conditions please do not hesitate to contact me. The office telephone contact is [phone]. This note is constructed in part using voice recognition software. While every effort has been made to ensure accuracy long wall mining machine tender errors may have been included. Yours sincerely, Brittani Miranda MD Coding Level of Care Code Tele Est Pt Level 2 (69735) Diagnoses Microscopic hematuria R31.29
== END 2023-11-22 14:02 | disposition home or self-care (01) ==
LOC: HO.HUSH 13:21
PROVIDERS: PCP Internal Medicine; Visit Provider Urology
DX: R31.29 Other microscopic hematuria (principal)
CPT/HCPCS: 99212

== ENCOUNTER → 2023-11-22 13:21 | Outpatient (BNVA) | payer OTHER, SELFPAY | PROVIDERS: PCP Internal Medicine; Visit Provider Urology ==

== ENCOUNTER 2023-12-12 09:10 | Outpatient (AMB) | payer OTHER, SELFPAY ==
[2023-12-12 09:11] VITALS: BP 122/68; BMI 23.4
--- NOTE | 2023-12-12 09:11 | A.OFFVIS_ITS ---
Vital Signs 12/12/23 09:11 Height 5 ft 3 in Weight 132 lb BMI 23.4 BP 122/68 Blood Pressure Location Lt brachial Position Sitting Intake Visit Reasons: IUD Removal (BC Consult) Allergies No Known Allergies Allergy (Verified 12/12/23 09:19) HPI Comments Details: Presenting to discuss different options of control. The patient had Mirena IUD for 3 years with no side effects PFS Medical History Encounter for general adult medical examination with abnormal findings Hematuria Hemorrhoids Chest heaviness Family history of esophageal cancer Thyroid disorder screening Cervical cancer screening History of gestational diabetes Headache in Gestational diabetes mellitus (GDM) Supervision of other normal Pelvic pain affecting Nausea and vomiting of , antepartum Decreased movement Supervision of normal in third trimester Poor growth complicating , antepartum Lactating mother Threatened labor at term IUD check up Family planning Well woman exam with routine gynecological exam Well woman exam Adult general medical exam Asthma History of gestational diabetes Anxiety Surgical History Cellulitis History of incision and drainage Hx of wisdom tooth extraction Hx of dilation and curettage Family History Father Family hx-stroke History of esophageal cancer Mother Anxiety Maternal Grandmother Hx of congestive heart failure Hx of diabetes mellitus Maternal Grandfather Colon cancer Hx of diabetes mellitus Paternal Grandfather Cancer Sister Mental health disorder Maternal Aunt Substance use disorder Social History Household Members: Spouse and Children Housing: House Alcohol intake: never Patient Tobacco Use Status: Never used Tobacco e-Cigarette/Vaping Use: Never Used Second Hand Smoke Exposure: No service: No Current occupational status: employed Gender identity: Female Cognitive needs: No Hearing needs: No Vision needs: No Female Reproductive History Menstrual Age of Menarche: 16 Review of Systems Const All systems reviewed & are unremarkable except as noted in HPI and below Reports as per HPI and Reports no additional complaints GI Reports no additional complaints Reports no additional complaints Physical Exam Vital Signs: BMI result Body Mass Index 23.4 General: Yes no CVA tenderness External Female Exam: normal external appearance and normal appearance of the urethra Speculum Exam - Vagina: normal appearance of the vagina, normal palpation, no lesions and no masses Speculum Exam - Cervix: normal appearance of the cervix, normal palpation, no lesions, no masses, nontender and Other cervical findings present (IUD string seen at the internal os) Bimanual exam- vagina & uterus: normal bimanual exam, normal palpation, uterine size normal, normal palpation, uterine shape normal, No Cervical tenderness present and non-tender Bimanual Exam- Adnexa, other: normal adnexae Back/Spine/Pelvis Back: no CVA tenderness Assessment & Plan Assessment & Plan (1) Family planning: Code(s): Z30.09 - Encounter for other general counseling and advice on contraception Category: Social Hx Plan: Discussed with the patient the different options of control including control pills, DMPA, different types of IUD 's. All the pros, cons, risks and benefits of each were discussed with the patient. The patient decided to stay on Mirena IUD. IUD strings were pushed in the endocervix with a small Q- tip. Coding Level of Care Code Est Pt Level 3 (92625) Diagnoses Family planning Z30.09
== END 2023-12-12 09:44 | disposition home or self-care (01) ==
LOC: HO.HWS 09:10
PROVIDERS: PCP Internal Medicine; Visit Provider Obstetrics & Gynecology
DX: Z30.09 Encounter for other general counseling and advice on contraception (principal)
CPT/HCPCS: 99213

== ENCOUNTER → 2023-12-12 09:10 | Outpatient (BNVA) | payer OTHER, SELFPAY | PROVIDERS: PCP Internal Medicine; Visit Provider Obstetrics & Gynecology ==

== ENCOUNTER 2024-02-12 10:54 | Outpatient (REF) | payer OTHER, SELFPAY ==
[2024-02-12 13:22] LABS: Appearance Urine Clear; Color Urine Yellow; Glucose Urine UA Negative (Negative); Leukocyte Esterase Urine Negative (Negative); Nitrite Urine Negative (Negative); Urine Blood Negative (Negative); Urine Ketones Negative (Negative); Urine Protein Negative (Neg-Trace)
[2024-02-13 05:32] LABS: CT PCR NOT DETECTED (Not Detect.); NG PCR NOT DETECTED (Not Detect.)
[2024-02-13 08:27] LABS: Bacterial Vaginosis PCR NEGATIVE (Negative); Candida Group PCR NOT DETECTED (Not Detect); Candida glab krusei PCR NOT DETECTED (Not Detect); Trichomonas vaginalis PCR NOT DETECTED (Not Detect)
== END 2024-02-12 10:55 | disposition home or self-care (01) ==
LOC: HO.LAB 10:54
PROVIDERS: PCP Internal Medicine; Visit Provider Advanced Practice Midwife
DX: R35.0 Frequency of micturition (principal); Z11.3 Encounter for screening for infections with a predominantly sexual mode of transmission; N89.8 Other specified noninflammatory disorders of vagina; Z20.2 Contact with and (suspected) exposure to infections with a predominantly sexual mode of transmission
CPT/HCPCS: 0352U; 81003; 87086; 87491; 87591

== ENCOUNTER 2024-02-12 10:54 | Outpatient (AMB) | payer OTHER, SELFPAY ==
--- NOTE | 2024-02-12 10:56 | MHC.OFFVIS ---
Vital Signs 02/12/24 10:58 Height 5 ft 3 in Weight 135 lb BMI 23.9 BP 106/70 Intake Visit Reasons: STD Testing Ballast Cleaning Operator Required: No Ballast Cleaning Operator Services: Ballast Cleaning Operator Present Information Interpreted: clinical only Poultry Farm Supervisor: Poultry Farm Supervisor Present Allergies No Known Allergies Allergy (Verified 02/12/24 10:59) Medication List - Last Reconciled 02/12/24 by Eliana Sanders CNM chlorhexidine gluconate 4% (Hibiclens) topical levonorgestrel (Mirena) intrauterine sertraline 50 mg PO DAILY Is last menstrual period known: No (IUD) HPI HPI STD Testing: Details: Patient is here because she had some discomfort with intercourse the other day and she is worried that maybe it signifies an STI the other possibility is a UTI she does have some urinary urgency and frequency. She is very anxious about this. She has the Mirena IU S she has never been able to feel the string. Its been in about 3 years. she has a history of microscopic hematuria. [facility] Medical History Encounter for general adult medical examination with abnormal findings Hematuria Hemorrhoids Chest heaviness Family history of esophageal cancer Thyroid disorder screening Cervical cancer screening History of gestational diabetes Headache in Gestational diabetes mellitus (GDM) Supervision of other normal Pelvic pain affecting Nausea and vomiting of , antepartum Decreased movement Supervision of normal in third trimester Poor growth complicating , antepartum Lactating mother Threatened labor at term IUD check up Family planning Well woman exam with routine gynecological exam Well woman exam Adult general medical exam Asthma History of gestational diabetes Anxiety Surgical History Cellulitis History of incision and drainage Hx of wisdom tooth extraction Hx of dilation and curettage Family History Father Family hx-stroke History of esophageal cancer Mother Anxiety Maternal Grandmother Hx of congestive heart failure Hx of diabetes mellitus Maternal Grandfather Colon cancer Hx of diabetes mellitus Paternal Grandfather Cancer Sister Mental health disorder Maternal Aunt Substance use disorder Social History Household Members: Spouse and Children Housing: House Alcohol intake: never Patient Tobacco Use Status: Never used Tobacco e-Cigarette/Vaping Use: Never Used Second Hand Smoke Exposure: No service: No Current occupational status: employed Gender identity: Female Cognitive needs: No Hearing needs: No Vision needs: No Female Reproductive History Menstrual Age of Menarche: 16 Duration of menses: 3-5 days control method: progestin IUCD Total pregnancies: 2 Full term: 2 Date of last pap smear: 04/06/21 (neg.) Physical Exam Vital Signs: Last Vital Signs BP 106/70 02/12/24 10:58 BMI result Body Mass Index 23.9 Other: Very clear vagina and vaginal mucosa and vaginal discharge which is scant cervix multiparous cervix probed with Cytobrush to see edge of Mirena string which has retreated into os some petechiae in transformation zone of the cervix. Cervix multiparous long close thick mobile nontender uterus midposition to anteverted mobile nontender no tenderness elicited with cervical motion tenderness or palpation of bladder or anywhere. External Female Exam: normal external appearance Speculum Exam - Vagina: normal appearance of the vagina and normal vaginal discharge Speculum Exam - Cervix: normal appearance of the cervix Bimanual exam- vagina & uterus: normal bimanual exam, uterine size normal, consistency normal, uterine mobility normal, uterine shape normal and non-tender Bimanual Exam- Adnexa, other: normal adnexae, no masses and No adnexal tenderness Assessment & Plan Assessment & Plan (1) Urinary frequency: Code(s): R35.0 - Frequency of micturition Category: Medical (2) Encounter for screening examination for sexually transmitted disease: Code(s): Z11.3 - Encounter for screening for infections with a predominantly sexual mode of transmission Category: Medical Plan We will await the results testing she has access to the patient portal which she will be able to access. Discussed the normal common findings of Carine and bacterial vaginosis and that they would only require treatment if she had symptoms. We will have her go to the lab to submit a clean-catch UA C&S discussed the challenge of getting it very clean to avoid contamination from vaginal vikas. Also discussed the possibility of fleeting vaginal symptoms from wearing tighter close over the holidays or something like that. we will await the results of testing. Nothing evident or suspicious on exam or visualization of discharge today. Orders: Orders Urine Culture Today R35.0 - Frequency of micturition, Z11.3 - Encounter for screening for infections with a predominantly sexual mode of transmission UA CC w/rflx Micro + Cult Today R35.0 - Frequency of micturition, Z11.3 - Encounter for screening for infections with a predominantly sexual mode of transmission Coding Level of Care Code Est Pt Level 3 (66650) Diagnoses Urinary frequency R35.0 Encounter for screening examination for sexually transmitted disease Z11.3
[2024-02-12 10:58] VITALS: BP 106/70; BMI 23.9
== END 2024-02-12 11:30 | disposition home or self-care (01) ==
PROVIDERS: PCP Internal Medicine; Visit Provider Advanced Practice Midwife
DX: R35.0 Frequency of micturition (principal); Z11.3 Encounter for screening for infections with a predominantly sexual mode of transmission
CPT/HCPCS: 99213

== ENCOUNTER 2024-06-05 13:55 | Outpatient (AMB) | payer OTHER, SELFPAY ==
--- NOTE | 2024-06-05 13:57 | MHC.OFFVIS ---
Vital Signs 06/05/24 14:01 Height 5 ft 3 in Weight 135 lb BMI 23.9 BP 110/70 Intake Visit Reasons: ? BV Intake Note: pt went to Urgent Care 05/25/24 and 04/30/24, dx with bv, yeast and strep. Field Support Specialist: Field Support Specialist Present (Lauryn) Allergies No Known Allergies Allergy (Verified 06/05/24 13:58) HPI Comments Details: Patient is here today with concerns of urinary frequency, and possible BV symptoms, recent urgent care visit treated with antibiotic and Diflucan- treatment yesterday. UTI (beta strep), history of strep throat. History of BV. Urinalysis and UPT is negative today. Some external irritation noted. [facility] Medical History IUD strings lost Rh negative state in antepartum period IUD (intrauterine device) in place Encounter for general adult medical examination with abnormal findings Hematuria Hemorrhoids Chest heaviness Family history of esophageal cancer Thyroid disorder screening Cervical cancer screening History of gestational diabetes Headache in Gestational diabetes mellitus (GDM) Well woman exam Adult general medical exam Asthma History of gestational diabetes Anxiety Surgical History Cellulitis History of incision and drainage Hx of wisdom tooth extraction Hx of dilation and curettage Family History Father Family hx-stroke History of esophageal cancer Mother Anxiety Maternal Grandmother Hx of congestive heart failure Hx of diabetes mellitus Maternal Grandfather Colon cancer Hx of diabetes mellitus Paternal Grandfather Cancer Sister Mental health disorder Maternal Aunt Substance use disorder Social History Household Members: Spouse and Children Housing: House Alcohol intake: never Patient Tobacco Use Status: Never used Tobacco e-Cigarette/Vaping Use: Never Used Second Hand Smoke Exposure: No service: No Current occupational status: employed Gender identity: Female Cognitive needs: No Hearing needs: No Vision needs: No Female Reproductive History Menstrual Age of Menarche: 16 Review of Systems Const All systems reviewed & are unremarkable except as noted in HPI and below Physical Exam Vital Signs: Last Vital Signs BP 110/70 06/05/24 14:01 BMI result Body Mass Index 23.9 Const General: cooperative, healthy appearing and no acute distress Orientation/consciousness: patient oriented x3 GI Inspection: Yes normal to inspection Palpation (GI): Soft to palpation and Other GI palpation findings present (Nontender) Rectal Exam - Female: visual inspection normal General: Yes bladder normal to palpation External Female Exam: normal appearance of the urethra Speculum Exam - Vagina: normal appearance of the vagina, normal palpation and normal vaginal discharge Speculum Exam - Cervix: normal appearance of the cervix, normal palpation and Other cervical findings present (IUD strings not seen or palpable) Bimanual exam- vagina & uterus: normal bimanual exam, normal palpation, uterine size normal, bladder normal to palpation, normal palpation, uterine shape normal and non-tender Bimanual Exam- Adnexa, other: normal adnexae Neuro General: patient oriented x3 Results AMB Urinalysis, Automated UA Leukoctes 0 Tamela/uL Last Edit by ROB Snow on 06/05/24 14:09 UA Nitrite Negative Last Edit by Brina Bravo Francis on 06/05/24 14:09 UA Urobilinogen 0 mg/dL Last Edit by Brina Bravo Francis on 06/05/24 14:09 UA Protein 0 mg/dL Last Edit by Brina Bravo Francis on 06/05/24 14:09 UA pH 6.0 Last Edit by Brina Bravo Francis on 06/05/24 14:09 UA Blood 0 Justin/uL Last Edit by Brina Bravo Francis on 06/05/24 14:09 UA Specific [place] 1.020 Last Edit by Brina Bravo Francis on 06/05/24 14:09 UA Ketone Negative Last Edit by Brina Bravo Francis on 06/05/24 14:09 UA Bilirubin 0 mg/dL Last Edit by Brina Bravo Francis on 06/05/24 14:09 UA Glucose mg/dL Last Edit by Brina Bravo [facility] on 06/05/24 14:09 AMB Test Urine AMB Test Urine Negative Last Edit by ROB Snow on 06/05/24 14:30 Results Reviewed Results Reviewed: Laboratory Last Values Urine pH (Auto) 6.0 06/05/24 14:08 Specific [place] (Auto) 1.020 06/05/24 14:08 Urine Protein (Auto) 0 mg/dL 06/05/24 14:08 Urine Ketones (Auto) Negative 06/05/24 14:08 Urine Blood (Auto) 0 Justin/uL 06/05/24 14:08 Urine Nitrite (Auto) Negative 06/05/24 14:08 Urine Bilirubin (Auto) 0 mg/dL 06/05/24 14:08 Urine Urobilinogen (Auto) 0 mg/dL 06/05/24 14:08 Leukocyte Esterase (Auto) 0 Tamela/uL 06/05/24 14:08 Assessment & Plan Assessment & Plan (1) IUD strings lost: Comment: Retracted strings, ultrasound confirm position 08/14/2023 Code(s): T83.32XA - Displacement of intrauterine contraceptive device, initial encounter Category: Medical Qualifiers: Encounter type: subsequent encounter Qualified Code(s): T83.32XD - Displacement of intrauterine contraceptive device, subsequent encounter (2) Urinary frequency: Code(s): R35.0 - Frequency of micturition Category: Medical Plan Urine dip is negative. Reviewed beverages to avoid for bladder irritation. Encouraged hydrating with water. Discuss the role of women's probiotics, use of boric acid. BV swab and GC chlamydia obtained await results for plan of care. The patient expressed understanding and agreement with the plan of care. All of her questions and concerns were addressed to the best of my ability. This note is constructed using voice recognition software. While every effort has been made to ensure accuracy, backup administrative coordinator errors may have been included. Orders: Orders AMB Urinalysis Automated Today R35.0 - Frequency of micturition AMB HCG Urine Test Today Z32.02 - Encounter for test, result negative Bacterial Vaginosis Panel Today N89.8 - Other specified noninflammatory disorders of vagina CT NG by PCR Today N89.8 - Other specified noninflammatory disorders of vagina US pelvic and transvaginal Today T83.32XA - Displacement of intrauterine contraceptive device, initial encounter Coding Level of Care Code Est Pt Level 3 (58872) Diagnoses Intrauterine contraceptive device threads lost, subsequent encounter T83.32XD Encounter type: subsequent encounter Urinary frequency R35.0
[2024-06-05 14:01] VITALS: BP 110/70; BMI 23.9
--- OUTSIDE RECORDS SUMMARY | 2024-06-05 16:42 | XMS_ITS | Clinical Summary ---
Author Organization [facility] ity Address [address] [place] [address] Care Team Providers Care Marine Firefighter Name Role Phone Elicia Yates Primary Care Provider [phone] Social History Tobacco Use Types Packs/Day Years Used Date Smoking Tobacco: Never Assessed Comments Unknown Sex and Gender Information Value Date Recorded Sex Assigned at Not on file Legal Sex Female 7:19 AM EST Gender Identity Not on file Sexual Orientation Not on file Obstetrics History Plan of Treatment Health Maintenance Due Date Last Done Comments DTaP,Tdap,and Td Vaccines (1 - Tdap) 10/06/2011 Hepatitis B Vaccines (1 of 3 - 19+ 3-dose series) 10/06/2011 Cervical Cancer Screening: P ap Smear 05/04/2020 05/04/2017 COVID-19 Vaccine ( - 2023-2 5 season) 2023 Influenza Vaccine (Season Ended) 2024 HIB Vaccines Aged Out No longer eligi ble based on patient's age to complete this topic HPV Vaccines Aged Out No longer eligi ble based on patient's age to complete this topic Hepatitis A Vaccines Aged Out No long er eligible based on patient's age to complete this topic IPV Vaccines Aged Out No longer eligi ble based on patient's age to complete this topic MMR Vaccines Aged Out No longer eligi ble based on patient's age to complete this topic Meningococcal ACWY Vaccine Aged Out N o longer eligible based on patient's age to complete this topic Meningococcal B Vaccine Aged Out No l onger eligible based on patient's age to complete this topic Pneumococcal Vaccine: Pediat rics (0 to 5 Years) and At-Risk Patients (6 to 64 Years) Aged Out No longer eligi ble based on patient's age to complete this topic RSV Immunization Patients Un cezar 20 months Aged Out No longer eligible b ased on patient's age to complete this topic Varicella Vaccines Aged Out No longer eligible based on patient's age to complete this topic Procedures Procedure Name Priority Date/Time Associated Diagnosis Comments PAP SMEAR Routine 05/04/2017 from Last 3 Months or Most Recently Relevant to Health Maintenance Results * Pap smear (05/04/2017) 05/04/2017 Narrative HISTORICAL TESTING LAB RESULTING AGENCY - 05/11/2017 9:49 AM EDT [id number] THINPREP PAP, IMAGED: NEGATIVE FOR SQUAMOUS INTRAEPITHELIAL LESION AND MALIGNANCY ??. MANAS BOYD(ASCP) (CASE ELECTRONICALLY SIGNED 05 11 2017) ADEQUACY: SATISFACTORY. ENDOCERVICAL/TRANSFORMATION ZONE COMPONENT PRESENT. SOURCE: THINPREP PAP HPV IF ASCUS, CERVICAL, IMAGED: CLINICAL INFORMATION: HPV IF DIAGNOSIS OF ASCUS. , PAP HX NEG, Z12.4 Yasemin Andre [facility] LAB CYTOLOGY ORDERABLES Final R esult HISTORICAL TESTING LAB RESULTING AGENCY from Last 3 Months or Most Recently Relevant to Health Maintenance Care Teams Marine Firefighter Relationship Specialty Start Date End Date Elicia Yates PA PCP - General Internal Medicine 03/07/17
--- OUTSIDE RECORDS SUMMARY | 2024-06-05 16:42 | XMS_ITS | Data Portability ---
Author Organization [facility], [facility] (Prof.) Address [address], [address] [place] [address] Assessment No assessment recorded. Plan of Treatment Reminders Order Date Submit Date Provider Last Modified By Organization Details Last Modified Time Details Appointments None record ed. Lab None record ed. Referral None record ed. Procedures None record ed. Surgeries None record ed. Imaging None record ed. Medication Orders None record ed. Patient TargetsNo targets recorded. Patient InstructionsNo instructions recorded. Reason for Referral None Reported. Medical Equipment None Reported. Medications Name Sig Start Date Stop Date Status Note LastModified by Organization Details LastModified Time lorazepam 0.5 mg tablet active Not Available Not Available No t Available misoprostol 200 mcg tablet active Not Available Not Availab le Not Available fluoxetine 10 mg capsule active Not Available Not Available N ot Available fluoxetine 20 mg capsule active Not Available Not Available N ot Available hydroxyzine pamoate 25 mg capsule active Not Available Not Available Not Available Tri-Previfem (28) 0.18 mg(7)/0.215 mg(7)/0.25 mg(7)-35 mcg tablet active Not Available Not Available Not Available 19 29 mg iron-1 mg chewable tablet active Not Available Not Available Not Available Vitals None Recorded Social History None recorded. Functional Status None recorded. Mental Status None recorded. Family History Nothing Reported. Medical History No medical history recorded. Gynecological HistoryNo gynecological history recorded. Obstetrics History GPAL:G 0 P 0 0 0 0 Past Encounters Encounter ID Performer Location Encounter Start Date Encounter Closed Date Diagnosis/Indication Diagnosis SNOMED-CT Code Diagnosis ICD10 Code Diagnosis Note [id number] [address] 06/15/2017 11:02:58 06/15/2017 11:03:52 Health Concerns Section Related Observation LastModified by Organization Detai ls LastModified Time None Recorded Concern Status LastModified by Organization Details LastModified Time None Recorded Advance Directives Directive None Recorded Payers Encounter Date Sequence Insurance Name Policy Number Policy Thomas Covered Member ID Thomas Member ID Guarantor Name 06/15/[address] [place] [address] [id number] Ladi Jung [id number] Ladi Jung OBGyn Episode No OBEpisode recorded.
== END 2024-06-05 15:36 | disposition home or self-care (01) ==
LOC: HO.HWS 13:56
PROVIDERS: PCP Internal Medicine; Visit Provider Advanced Practice Midwife
DX: T83.32XD Displacement of intrauterine contraceptive device, subsequent encounter (principal); R35.0 Frequency of micturition; Z32.02 Encounter for pregnancy test, result negative
CPT/HCPCS: 99213

== ENCOUNTER 2024-06-05 13:55 | Outpatient (REF) | payer OTHER, SELFPAY ==
--- OUTSIDE RECORDS SUMMARY | 2024-06-05 17:20 | XMS_ITS | Clinical Summary ---
Author Organization [facility] ity Address [address] [place] [address] Care Team Providers Care Automobile Mechanic Assistant Name Role Phone Elicia Yates Primary Care Provider [phone]- [phone] Social History Tobacco Use Types Packs/Day Years [...] RESULTING AGENCY - 05/11/2017 9:49 AM EDT [id number] THINPREP PAP, IMAGED: NEGATIVE FOR SQUAMOUS INTRAEPITHELIAL LESION AND MALIGNANCY ??. MANAS BOYD(ASCP) (CASE ELECTRONICALLY SIGNED 05 11 2017) ADEQUACY: SATISFACTORY. ENDOCERVICAL/TRANSFORMATION ZONE COMPONENT PRESENT. SOURCE: THINPREP PAP HPV IF ASCUS, CERVICAL, IMAGED: CLINICAL INFORMATION: HPV IF DIAGNOSIS OF ASCUS. , PAP HX NEG, Z12.4 Yasemin Andre [facility] LAB CYTOLOGY ORDERABLES Final R esult HISTORICAL TESTING LAB RESULTING AGENCY from Last 3 Months or Most Recently Relevant to Health Maintenance Care Teams Automobile Mechanic Assistant Relationship Specialty Start Date End Date Elicia Yates PA PCP - General Internal Medicine 03/07/17
[2024-06-05 21:46] LABS: Bacterial Vaginosis PCR NEGATIVE (Negative); Candida Group PCR DETECTED (Not Detect); Candida glab krusei PCR NOT DETECTED (Not Detect); Trichomonas vaginalis PCR NOT DETECTED (Not Detect)
[2024-06-05 22:38] LABS: CT PCR NOT DETECTED (Not Detect.); NG PCR NOT DETECTED (Not Detect.)
== END 2024-06-05 13:56 | disposition home or self-care (01) ==
LOC: HO.LAB 13:55
PROVIDERS: PCP Internal Medicine; Visit Provider Advanced Practice Midwife
DX: N89.8 Other specified noninflammatory disorders of vagina (principal)
CPT/HCPCS: 81003; 81025; 81515; 87491; 87591

== ENCOUNTER 2024-06-05 14:26 | Outpatient (REF) | payer OTHER, SELFPAY | END 2024-06-05 14:27 | disposition home or self-care (01) | LOC: HO.LNP 14:26 | PROVIDERS: Visit Provider Advanced Practice Midwife | DX: Z13.89 Encounter for screening for other disorder (principal) ==

== ENCOUNTER 2024-06-11 08:06 | Outpatient (AMB) | payer OTHER, SELFPAY ==
--- OUTSIDE RECORDS SUMMARY | 2024-06-11 08:15 | XMS_ITS | Clinical Summary ---
Author Organization [facility] ity Address [address] [place] [address] Care Team Providers Care Cardiology Consultants Name Role Phone Elicia Yates Primary Care Provider [phone]- [phone] Social History Tobacco Use Types Packs/Day Years [...] RESULTING AGENCY - 05/11/2017 9:49 AM EDT [id number] THINPREP PAP, IMAGED: NEGATIVE FOR SQUAMOUS INTRAEPITHELIAL LESION AND MALIGNANCY ??. MANAS BOYD(ASCP) (CASE ELECTRONICALLY SIGNED 05 11 2017) ADEQUACY: SATISFACTORY. ENDOCERVICAL/TRANSFORMATION ZONE COMPONENT PRESENT. SOURCE: THINPREP PAP HPV IF ASCUS, CERVICAL, IMAGED: CLINICAL INFORMATION: HPV IF DIAGNOSIS OF ASCUS. , PAP HX NEG, Z12.4 Yasemin Andre [facility] LAB CYTOLOGY ORDERABLES Final R esult HISTORICAL TESTING LAB RESULTING AGENCY from Last 3 Months or Most Recently Relevant to Health Maintenance Care Teams Cardiology Consultants Relationship Specialty Start Date End Date Elicia Yates PA PCP - General Internal Medicine 03/07/17
--- NOTE | 2024-06-11 08:34 | AM.OFFWIN_ITS ---
Intake Vital Signs 06/11/24 08:35 Weight 135 lb BP 122/78 Blood Pressure Location Rt brachial Position Sitting Pulse 87 Pulse Source Pulse Oximeter Temp 97.9 F Temp Source Oral Pulse Oximetry (%) 98 Oxygen Delivery Method Room Air Intake Visit Reasons: EP Strep, thrush?? Intake Note: Patient here for tongue discoloration which she noticed this morning, she states she recently finished antibiotics for strep on 06/04. Patient Tobacco Use Status: Never used Tobacco Allergies No Known Allergies Allergy (Verified 06/11/24 08:44) Medication List - Last Reconciled 06/11/24 by Echo Malave, FILTER WASHER- levonorgestrel (Mirena) intrauterine sertraline 50 mg PO DAILY Do you need a note to return to daycare/school/sports/work: No HPI HPI Comments History of Present Illness Details - The patient is a 33-year-old female pr esenting with tongue discoloration following antibiotic use. - She was initially diagnosed with strep tococcal pharyngitis in February. Bacterial vaginosis was identified on April 17. - The patient experienced urinary tract infections on May 03 and May 25, coinciding with another episode of streptococcal pharyngitis, candidiasis, and bacterial vaginosis on May 25. - The patient noticed a white discolorat ion on her tongue that persisted despite oral hygiene measures, associated with mild throat discomfort. - A history of frequent antibiotic use, most recently amoxicillin, has contributed to her health anxiety. - She is concerned about potential recur rent streptococcal infection or oral thrush. - The patient, generally affected by [facility] anxiety, has been distressed by the frequency of infections. - She reports a sore neck for three days without apparent cause and denies previous similar tongue discoloration episodes. - would like lab eval to see why she rafy ps getting sick Exam Awake alert NAD Sclera and conjunctiva clear bilat Nares patent, turbinates within normal limits, no sinus tenderness with palpation bilat TM intact and clear bilat MMM, pharynx WNL, tongue normal, no thrush, no thick white coating; there is navarrete discoloration consistent w/ coffee intake, she admits she did have prior to my exam. Shotty ac adenopathy bilat, nontender Results - Tests: Negative result from a rapid st reptococcal antigen test. Discussion Notes During the patient's visit, we discussed the likely diagnosis and management of her tongue discoloration, assessing that the presentation did not meet the typical clinical picture of oral thrush. Considering her history of health anxiety and recent infections, we acknowledged the patient's concern and provided education about oral thrush and the potential side effects of frequent antibiotic use, explaining how these medications may alter oral vikas leading to temporary discolorations. We recommended initiating nystatin treatment as a precautionary measure in case of undiagnosed oral thrush, elaborating on its use and expected outcomes. Moreover, a follow-up with her primary care provider was suggested, especially given the recurrence of infections and her health concerns. The importance of consulting with her primary physician, was emphasized. We initiated a conversation with her primary care provider, Dr. Simmons, & and appt was scheduled for tomorrow. The patient was instructed on medication use and advised regarding the importance of proper follow-up. Assessment and Plan 1. Tongue Discoloration Though the observed tongue discoloration lacked typical signs of thrush, we initiated nystatin therapy due to her recent antibiotic use, outlining application specifics to optimize coverage of any thrush-indicative lesions. We directed the patient to maintain contact with her primary care physician to address concerns beyond immediate care needs. 2. Streptococcal Pharyngitis (History of ) With the current rapid strep test returning a negative result, no antibiotic therapy is indicated. Continued attention to symptom progression will inform any need for intervention. 3. Health Anxiety The patient was counseled on her expressed health anxieties, particularly in light of recent recurrent infections, facilitating dialogues with her primary care provider to gain deeper insights and allay ongoing concerns. Patient Instructions - Use the nystatin oral suspension as in structed: swish, gargle, and swallow three times daily for ten days. - Do not eat or brush your teeth for 30 minutes after using the medication. - Follow up with Dr. Simmons tomorrow as scheduled - Monitor your symptoms and return for c are if new symptoms develop or current symptoms worsen. Consent. Patient was informed and verbally consented to the use of an ambient scribe for clinic note documentation during this visit. Total time spent caring for the patient today was 30 minutes. This includes time spent before the visit reviewing the chart, time spent during the visit, and time spent after the visit on documentation, reviewing laboratory results, diagnostic imaging, medications, performing a medically necessary evaluation, counseling on diagnoses, care coordination, ordering appropriate tests, ordering appropriate medications, review of tests performed by other providers, reporting test results with the patient, communication with other healthcare providers. [facility] Medical History IUD strings lost Rh negative state in antepartum period IUD (intrauterine device) in place Encounter for general adult medical examination with abnormal findings Hematuria Hemorrhoids Chest heaviness Family history of esophageal cancer Thyroid disorder screening Cervical cancer screening History of gestational diabetes Headache in Gestational diabetes mellitus (GDM) Well woman exam Adult general medical exam Asthma History of gestational diabetes Anxiety Surgical History Cellulitis History of incision and drainage Hx of wisdom tooth extraction Hx of dilation and curettage Family History Father Family hx-stroke History of esophageal cancer Mother Anxiety Maternal Grandmother Hx of congestive heart failure Hx of diabetes mellitus Maternal Grandfather Colon cancer Hx of diabetes mellitus Paternal Grandfather Cancer Sister Mental health disorder Maternal Aunt Substance use disorder Social History Household Members: Spouse and Children Housing: House Alcohol intake: never Patient Tobacco Use Status: Never used Tobacco e-Cigarette/Vaping Use: Never Used Second Hand Smoke Exposure: No service: No Current occupational status: employed Gender identity: Female Cognitive needs: No Hearing needs: No Vision needs: No Female Reproductive History Menstrual Age of Menarche: 16 Physical Exam Vital Signs: Last Vital Signs Temp 97.9 F 06/11/24 08:35 Pulse 87 06/11/24 08:35 BP 122/78 06/11/24 08:35 Pulse Ox 98 06/11/24 08:35 Oxygen Delivery Method Room Air 06/11/24 08:35 Results AMB Rapid Strep AMB Rapid Strep Negative Last Edit by BELLA Penn on 06/11/24 09:27 Results Reviewed Results Reviewed: Laboratory Last Values Strep Scn Rapid Clinic Negative 06/11/24 09:26 Assessment & Plan Assessment & Plan (1) Anxiety about health: Code(s): R45.89 - Other symptoms and signs involving emotional state (2) Recurrent infections: Code(s): B99.9 - Unspecified infectious disease (3) Tongue discoloration: Code(s): K14.8 - Other diseases of tongue Plan . Orders: Orders AMB Rapid Strep Screen Today Z13.9 - Encounter for screening, unspecified Medications: New nystatin swish and swallow 5 mL PO TID 5 days 75 mL 0RF Coding Level of Care Code Est Pt Level 4 (41949) Diagnoses Anxiety about health R45.89 Recurrent infections B99.9 Tongue discoloration K14.8
[2024-06-11 08:35] VITALS: BP 122/78; PULSE 87; TEMP 36.6; O2SAT 98
== END 2024-06-11 09:31 | disposition home or self-care (01) ==
PROVIDERS: PCP Internal Medicine; Visit Provider Nurse Practitioner Family
DX: R45.89 Other symptoms and signs involving emotional state (principal); B99.9 Unspecified infectious disease; K14.8 Other diseases of tongue; Z13.9 Encounter for screening, unspecified

== ENCOUNTER → 2024-06-11 08:06 | Outpatient (BNVA) | payer OTHER, SELFPAY | PROVIDERS: PCP Internal Medicine; Visit Provider Nurse Practitioner Family | DX: K14.8 Other diseases of tongue (principal); R45.89 Other symptoms and signs involving emotional state; B99.9 Unspecified infectious disease | CPT/HCPCS: 87880 ==

== ENCOUNTER 2024-06-12 09:14 | Outpatient (AMB) | payer OTHER, SELFPAY ==
[2024-06-12 09:21] VITALS: BP 118/72; PULSE 91; O2SAT 98; BMI 24.0
--- NOTE | 2024-06-12 09:21 | A.OFFPC_ITS ---
Vital Signs 06/12/24 09:21 Height 5 ft 3 in Weight 135 lb 6 oz BMI 24.0 BP 118/72 Blood Pressure Location Lt brachial Position Sitting Pulse 91 Pulse Source Pulse Oximeter Pulse Oximetry (%) 98 Oxygen Delivery Method Room Air Intake Visit Reasons: F/up walk in 06/11 Allergies No Known Allergies Allergy (Verified 06/12/24 09:23) Medication List - Last Reconciled 06/12/24 by Natasha Simmons MD levonorgestrel (Mirena) intrauterine nystatin 5 mL PO TID 5 days sertraline 50 mg PO DAILY Tobacco use date assessed: 06/12/24 Dental Screening Dental Screen Date: 06/12/24 Did you have a dental visit in the last 12 months?: Yes Did you have a dental problem in the last 6 months where you did not have access to dental care?: No Was dental information given to patient?: Patient has dentist HPI F/up walk in 06/11 HPI Details History - The patient is a 33-year-old female pr esenting with concerns regarding recurrent infections and associated symptoms. - Has had recurrent streptococcal pharyn gitis starting since February this year, experienced twice. - During the same period, experienced tw o instances of urinary tract infections. - Within the same timeframe, has had rec urrent bacterial vaginosis twice. - Additionally, the patient has develope d a yeast infection recently. . - The patient described ongoing anxiety that may exacerbate health worries. - Medications include sertraline 50 mg d aily. - Vitamin D deficiency is suspected base d on previous OBGYN evaluation and advice. - The patient is currently using an IUD - Encountered anxiety and concerns about the recurrence of infections without clear triggering factors. Problem List - Recurrent Streptococcal Pharyngitis - Recurrent Urinary Tract Infections - Recurrent Bacterial Vaginosis - Recurrent Vulvovaginal Candidiasis - Generalized Anxiety Disorder Patient Instructions - Take prescribed vitamin D supplement t o maintain normal levels. - Increase yogurt consumption for natura l probiotics. - Drink plenty of water to support overa ll health. - Avoid unnecessary antibiotics for lola r conditions. - Use natural or unsweetened products fo r vaginal health. - Clean with water rather than tissue to reduce UTI risk. - Maintain routine medication for anxiet y and monitor its management. - Manage stress and ensure adequate slee p and rest. - Empty bladder before and after interco urse. Review of Systems - General: No fever no chills - Neurological: No headaches no dizziness - Ear nose throat: No sore throat no hearing difficulty no ear pain - Cardiovascular: No syncope, no chest pain, no palpitations - Gastrointestinal: No nausea vomiting or diarrhea - Endocrine: No polyuria polydipsia no heat intolerance - Genitourinary: No dysuria , no blood in urine Physical Exam General: No acute distress HEENT: Throat slightly bothering, but no strep or fungus present Neck: Supple Respiratory system: Able to talk in full sentences, no audible wheeze Cardiovascular: S1-S2 regular in rate and rhythm Gastrointestinal: No pain Extremities: No new findings HEALTH AID: Alert awake oriented x3 motor sensory intact Skin: Normal turgor PFSH Medical History IUD strings lost Rh negative state in antepartum period IUD (intrauterine device) in place Encounter for general adult medical examination with abnormal findings Hematuria Hemorrhoids Chest heaviness Family history of esophageal cancer Thyroid disorder screening Cervical cancer screening History of gestational diabetes Headache in Gestational diabetes mellitus (GDM) Well woman exam Adult general medical exam Asthma History of gestational diabetes Anxiety Surgical History Cellulitis History of incision and drainage Hx of wisdom tooth extraction Hx of dilation and curettage Family History Father Family hx-stroke History of esophageal cancer Mother Anxiety Maternal Grandmother Hx of congestive heart failure Hx of diabetes mellitus Maternal Grandfather Colon cancer Hx of diabetes mellitus Paternal Grandfather Cancer Sister Mental health disorder Maternal Aunt Substance use disorder Social History Household Members: Spouse and Children Housing: House Alcohol intake: never Patient Tobacco Use Status: Never used Tobacco e-Cigarette/Vaping Use: Never Used Second Hand Smoke Exposure: No service: No Current occupational status: employed Gender identity: Female Cognitive needs: No Hearing needs: No Vision needs: No Female Reproductive History Menstrual Age of Menarche: 16 Questionnaire PHQ-9 Over the last 2 weeks, how often have you been bothered by any of the following problems? 1. Little interest or pleasure in doing things: not at all 2. Feeling down, depressed, or hopeless: not at all 3. Trouble falling or staying asleep, or sleeping too much: not at all 4. Feeling tired or having little energy: not at all 5. Poor appetite or overeating: not at all 6. Feeling bad about yourself - or that you are a failure or have let yourself or your family down: not at all 7. Trouble concentrating on things, such as reading the newspaper or watching television: not at all 8. Moving or speaking so slowly that other people could have noticed. Or the opposite - being so fidgety or restless that you have been moving around a lot more than usual: not at all 9. Thoughts that you would be better off or of hurting yourself in some way: not at all Total score: 0 Depression Screening Interpretation: Negative Depression Screening Done: Yes 71413 - PHQ-9 Billing: Yes Source: Developed by Drs. Americo Gong, Saloni Ordoñez, Constantino Pantoja and colleagues, with an educational cherry from [employer]. Thrive Questionnaire Date Thrive assessed: 06/12/24 I am a: Patient What is your living situation today?: I have a steady place to live Within the past 12 months, did the food you bought not last and you didn't have the money to get more?: Never true Within the past 12 months, did you worry whether your food would run out before you got money to buy more?: Never true Do you have trouble paying for medicines?: No Do you have trouble getting transportation to medical appointments?: No Do you have trouble paying your heating and electricity bill?: No Do you have trouble taking care of your child, family member or friend?: No Do you have trouble with day-to-day activities such as bathing, preparing meals, shopping, managing finances, etc.?: No Are you currently unemployed and looking for a job?: No Are you interested in more education?: No Please select the resources that you would like help with: None Currently or been in a relationship where the following occur: No concerns reported THRIVE Score: 0 AUDIT C Alcohol Use Questionnaire (AUDIT-C) 1. How often do you have a drink containing alcohol?: Monthly or less 2. How many drinks containing alcohol do you have on a typical day when you are drinking?: 3 or 4 3. How often do you have six or more drinks on one occasion?: Never Total Score: 2 Score Reviewed/Action Taken: Yes HENOK-7 AMB Questionnaire HENOK-7 Date HENOK - 7 assessed: 06/12/24 Feeling nervous, anxious, or on edge: 1 = Several days Not being able to stop or control worryin = Not at all Worrying too much about different things: 0 = Not at all Trouble relaxin = Not at all Being so restless that it is hard to sit still: 1 = Several days Becoming easily annoyed or irritable: 0 = Not at all Feeling afraid as if something awful might happen: 0 = Not at all Total HENOK-7 score (0-4 normal; 5-9 mild; 10-14 moderate; 15-21 severe): 2 Source: Developed by Drs. Americo Gong, Saloni Ordoñez, Constantino Pantoja and colleagues, with an educational cherry from [employer]. HENOK-7 Assessment Billing HENOK-7 Assessment Tool: HENOK-7 Assessment 66065 Physical exam (Primary Care) Vital Signs: Last Vital Signs Pulse 91 06/12/24 09:21 BP 118/72 06/12/24 09:21 Pulse Ox 98 06/12/24 09:21 Oxygen Delivery Method Room Air 06/12/24 09:21 BMI result Body Mass Index 24.0 Tobacco/Smoking Status: Tobacco use Status Tobacco use date assessed 06/12/24 06/12/24 09:23 Patient Tobacco Use Status Never used Tobacco 06/12/24 09:23 e-Cigarette/Vaping Use Never Used 06/12/24 09:23 PHQ-9: PHQ-9 Score PHQ-9: Total score 0 06/12/24 09:37 Depression Screening Interpretation: Negative Thrive Assessment: Date of Thrive Assessment Date Thrive assessed 06/12/24 06/12/24 09:23 Currently or been in a relationship where the following occur: No concerns reported Coding Level of Care Code Est Pt Level 3 (76224) Diagnoses Recurrent infections B99.9 Low vitamin D level R79.89 Additional Codes HENOK-7 Assessment Billing - HENOK-7 Assessment Tool: HENOK-7 Assessment 18688 ([id number]) PHQ-9 - 97928 - PHQ-9 Billing: Yes ([id number]) Assessment & Plan Assessment & Plan (1) Recurrent infections: Code(s): B99.9 - Unspecified infectious disease Category: Medical (2) Low vitamin D level: Code(s): R79.89 - Other specified abnormal findings of blood chemistry Category: Medical Plan History - The patient is a 33-year-old female presenting with concerns regarding recurrent infections and associated symptoms. - Has had recurrent streptococcal pharyngitis starting since February this year, experienced twice. - During the same period, experienced two instances of urinary tract infections. - Within the same timeframe, has had recurrent bacterial vaginosis twice. - Additionally, the patient has developed a yeast infection recently. . - The patient described ongoing anxiety that may exacerbate health worries. - Medications include sertraline 50 mg daily. - Vitamin D deficiency is suspected based on previous OBGYN evaluation and advice. - The patient is currently using an IUD - Encountered anxiety and concerns about the recurrence of infections without clear triggering factors. Problem List - Recurrent Streptococcal Pharyngitis - Recurrent Urinary Tract Infections - Recurrent Bacterial Vaginosis - Recurrent Vulvovaginal Candidiasis - Generalized Anxiety Disorder Patient Instructions - Take prescribed vitamin D supplement to maintain normal levels. - Increase yogurt consumption for natural probiotics. - Drink plenty of water to support overall health. - Avoid unnecessary antibiotics for minor conditions. - Use natural or unsweetened products for vaginal health. - Clean with water rather than tissue to reduce UTI risk. - Maintain routine medication for anxiety and monitor its management. - Manage stress and ensure adequate sleep and rest. - Empty bladder before and after intercourse. Orders: Orders Complete Blood Count Auto Diff Today B99.9 - Unspecified infectious disease Comprehensive Met. Panel Today B99.9 - Unspecified infectious disease Vitamin D 25-OH (D2 and D3) Today R79.89 - Other specified abnormal findings of blood chemistry TSH reflex Free T4 Today B99.9 - Unspecified infectious disease
--- OUTSIDE RECORDS SUMMARY | 2024-06-12 09:51 | XMS_ITS | Clinical Summary ---
Author Organization [facility] ity Address [address] [place] [address] Care Team Providers Care Wastewater Technician Name Role Phone Elicia Yates Primary Care Provider [phone]- [phone] Social History Tobacco Use Types Packs/Day Years [...] RESULTING AGENCY - 05/11/2017 9:49 AM EDT [id number] THINPREP PAP, IMAGED: NEGATIVE FOR SQUAMOUS INTRAEPITHELIAL LESION AND MALIGNANCY ??. MANAS BOYD(ASCP) (CASE ELECTRONICALLY SIGNED 05 11 2017) ADEQUACY: SATISFACTORY. ENDOCERVICAL/TRANSFORMATION ZONE COMPONENT PRESENT. SOURCE: THINPREP PAP HPV IF ASCUS, CERVICAL, IMAGED: CLINICAL INFORMATION: HPV IF DIAGNOSIS OF ASCUS. , PAP HX NEG, Z12.4 Yasemin Andre [facility] CYTOLOGY ORDERABLES Final R esult HISTORICAL TESTING LAB RESULTING AGENCY from Last 3 Months or Most Recently Relevant to Health Maintenance Care Teams Wastewater Technician Relationship Specialty Start Date End Date Elicia Yates PA PCP - General Internal Medicine 03/07/17
--- OUTSIDE RECORDS SUMMARY | 2024-06-12 09:51 | XMS_ITS | Data Portability ---
Author Organization [facility] Maternal Medicine, [facility] (Prof.) Address [address], [address] [place] [address] Assessment No assessment recorded. Plan of Treatment [...] SNOMED-CT Code Diagnosis ICD10 Code Diagnosis Note [id number] [address] 06/15/2017 11:02:58 06/15/2017 11:03:52 Health Concerns Section Related Observation LastModified by Organization Detai ls LastModified Time None Recorded Concern Status LastModified by Organization Details LastModified Time None Recorded Advance Directives Directive None Recorded Payers Encounter Date Sequence Insurance Name Policy Number Policy Thomas Covered Member ID Thomas Member ID Guarantor Name 06/15/[address] [place] [address] [id number] Ladi Jung [id number] Ladi Jung OBGyn Episode No OBEpisode recorded.
== END 2024-06-12 10:23 | disposition home or self-care (01) ==
LOC: HO.HMCC 09:15
PROVIDERS: PCP Internal Medicine; Visit Provider Internal Medicine
DX: B99.9 Unspecified infectious disease (principal); R79.89 Other specified abnormal findings of blood chemistry

== ENCOUNTER 2024-06-12 09:14 | Outpatient (REF) | payer OTHER, SELFPAY ==
[2024-06-12 11:46] LABS: MANUAL DIFF FLAG NO
[2024-06-12 12:37] LABS: Basophils Percent Auto 0.5 % (0-2); Eosinophils Absolute Auto 0.1 X10*3/uL (0.0-0.4); Eosinophils Percent Auto 1.2 % (0-4); Hemoglobin 14.8 g/dl (12.0-16.0); Imm Gran Abs Auto 0.01 X10*3/uL (0.00-0.03); Imm Gran Pct Auto 0.2 % (0.0-0.4); Lymphocytes Absolute Auto 1.5 X10*3/uL (1.2-4.9); Lymphocytes Percent Auto 26.6 % (20-40); Mean Corpuscular HGB Conc 36.1 g/dl (31.0-35.0); Mean Corpuscular Volume 88.7 fL (80.0-98.0); Mean Platelet Volume 10.2 fL (9.4-12.3); Monocytes Absolute Auto 0.4 X10*3/uL (0.1-1.2); Monocytes Percent Auto 6.8 % (2-11); Neutrophils Absolute Auto 3.7 x10*3/uL (2.0-8.3); Neutrophils Percent Auto 64.7 % (45-73); Platelet Count 238 X10*3/uL (160-400); Red Blood Count 4.62 X10*6/uL (4.20-5.50); Red Cell Distribution Width 12.5 % (11.0-16.0); White Blood Count 5.8 X10*3/uL (4.8-10.8)
--- OUTSIDE RECORDS SUMMARY | 2024-06-12 12:39 | XMS_ITS | Clinical Summary ---
Author Organization [facility] ity Address [address] [place] [address] Care Team Providers Care Hotel Engineer Name Role Phone Elicia Yates Primary Care Provider [phone]- [phone] Social History Tobacco Use Types Packs/Day Years [...] RESULTING AGENCY - 05/11/2017 9:49 AM EDT [id number] THINPREP PAP, IMAGED: NEGATIVE FOR SQUAMOUS INTRAEPITHELIAL LESION AND MALIGNANCY ??. MANAS BOYD(ASCP) (CASE ELECTRONICALLY SIGNED 05 11 2017) ADEQUACY: SATISFACTORY. ENDOCERVICAL/TRANSFORMATION ZONE COMPONENT PRESENT. SOURCE: THINPREP PAP HPV IF ASCUS, CERVICAL, IMAGED: CLINICAL INFORMATION: HPV IF DIAGNOSIS OF ASCUS. , PAP HX NEG, Z12.4 Yasemin Andre [facility] CYTOLOGY ORDERABLES Final R esult HISTORICAL TESTING LAB RESULTING AGENCY from Last 3 Months or Most Recently Relevant to Health Maintenance Care Teams Hotel Engineer Relationship Specialty Start Date End Date Elicia Yates PA PCP - General Internal Medicine 03/07/17
[2024-06-12 13:06] LABS: Alanine Aminotransferase 32 U/L (0-31); Albumin Level 4.6 g/dL (3.5-5.0); Alkaline Phosphatase 58 U/L (39-117); Anion Gap 13 (12-20); Aspartate Amino Transferase 25 U/L (5-31); Bilirubin Total 1.8 mg/dL (0.0-1.0); Blood Urea Nitrogen 14 mg/dL (9-16); Calcium 9.6 mg/dL (8.4-10.2); Carbon Dioxide 27 mmol/L (22-29); Chloride 104 mmol/L (96-108); Estimated Glomerular Filt Rate > 60; Glucose Random 87 mg/dL (60-115); Potassium 4.5 mmol/L (3.3-5.1); Sodium 139 mmol/L (135-145); Total Protein 7.6 g/dL (6.5-8.0)
[2024-06-12 13:22] LABS: TSH reflex Free T4 1.47 uIU/mL (0.32-4.0)
[2024-06-16 15:39] LABS: Vitamin D 25-OH, D2 <4 ng/mL; Vitamin D 25-OH, D3 26 ng/mL; Vitamin D 25-OH, Total 26 ng/mL (30-100)
== END 2024-06-12 09:15 | disposition home or self-care (01) ==
LOC: HO.LAB 09:14
PROVIDERS: PCP Internal Medicine; Visit Provider Internal Medicine
DX: B99.9 Unspecified infectious disease (principal); R79.89 Other specified abnormal findings of blood chemistry
CPT/HCPCS: 36415; 80053; 82306; 84443; 85025; 96127

== ENCOUNTER 2024-06-28 15:11 | Outpatient (REF) | payer OTHER, SELFPAY ==
--- NOTE | ~2024-06-28 | US_ITS ---
EXAMINATION: US PELVIS TRANSABDOMINAL AND TRANSVAGINAL HISTORY: IUD string lost COMPARISON: Comparison is made with the prior examination dated 08/14/2023. TECHNIQUE: Transabdominal and endovaginal real-time 2D andrews-scale ultrasound was performed. FINDINGS: Uterus: The uterus is normal in size, measuring 9.3 x 3.9 x 5.1 cm. Myometrium has a normal echotexture. No fibroids are identified. Endometrium: The endometrial stripe is not visualized secondary to the presence of an IUD which appears in appropriate position. Right ovary: The right ovary measures 4.2 x 1.1 x 2.4 cm. There is a 7 mm echogenic focus in the right ovary which could represent a hemorrhagic follicle. Left ovary: The left ovary measures 2.4 x 1.2 x 1.8 cm. The left ovary is normal in size and echotexture. Pelvic fluid: There is a small amount of free fluid in the right adnexa.. US/US pelvic and transvaginal IMPRESSION: IUD in appropriate position in the endometrial cavity. Electronically signed by: Americo Singh MD 07/01/2024 06:58 AM EDT
--- OUTSIDE RECORDS SUMMARY | 2024-06-28 15:13 | XMS_ITS | Clinical Summary ---
Author Organization [facility] ity Address [address] [place] [address] Care Team Providers Care Shutdown Coordinator Name Role Phone lEicia Yates Primary Care Provider +1- [phone] Social History Tobacco Use Types Packs/Day Years [...] RESULTING AGENCY - 05/11/2017 9:49 AM EDT [id number] THINPREP PAP, IMAGED: NEGATIVE FOR SQUAMOUS INTRAEPITHELIAL LESION AND MALIGNANCY ??. MANAS BOYD(ASCP) (CASE ELECTRONICALLY SIGNED 05 11 2017) ADEQUACY: SATISFACTORY. ENDOCERVICAL/TRANSFORMATION ZONE COMPONENT PRESENT. SOURCE: THINPREP PAP HPV IF ASCUS, CERVICAL, IMAGED: CLINICAL INFORMATION: HPV IF DIAGNOSIS OF ASCUS. , PAP HX NEG, Z12.4 Yasemin Andre [facility] CYTOLOGY ORDERABLES Final R esult HISTORICAL TESTING LAB RESULTING AGENCY from Last 3 Months or Most Recently Relevant to Health Maintenance Care Teams Shutdown Coordinator Relationship Specialty Start Date End Date Elicia Yates PA PCP - General Internal Medicine 03/07/17
--- OUTSIDE RECORDS SUMMARY | 2024-06-28 15:13 | XMS_ITS | Data Portability ---
Author Organization [facility], [facility] Address [address], [address] [place] [address] Assessment No assessment recorded. Plan of Treatment [...] SNOMED-CT Code Diagnosis ICD10 Code Diagnosis Note [id number] Darrin Noyola MD [address] [address] 06/15/2017 11:02:58 06/15/2017 11:03:52 Health Concerns Section Related Observation LastModified by Organization Detai ls LastModified Time None Recorded Concern Status LastModified by Organization Details LastModified Time None Recorded Advance Directives Directive None Recorded Payers Encounter Date Sequence Insurance Name Policy Number Policy Thomas Covered Member ID Thomas Member ID Guarantor Name 06/15/[address] [place] [address] [id number] Ladi Jung [id number] Ladi Jung OBGyn Episode No OBEpisode recorded.
== END 2024-06-28 15:12 | disposition home or self-care (01) ==
LOC: HO.US 15:11
PROVIDERS: PCP Internal Medicine; Visit Provider Advanced Practice Midwife
DX: T83.32XA Displacement of intrauterine contraceptive device, initial encounter (principal)
CPT/HCPCS: 76830; 76856

== ENCOUNTER → 2024-06-28 15:25 | Outpatient (BNV) | payer OTHER, SELFPAY | PROVIDERS: PCP Internal Medicine; Visit Provider Radiology Diagnostic Radiology | DX: T83.32XA Displacement of intrauterine contraceptive device, initial encounter (principal) | CPT/HCPCS: 76830; 76856 ==

== ENCOUNTER 2024-08-28 08:34 | Outpatient (AMB) | payer OTHER, SELFPAY ==
--- NOTE | 2024-08-28 08:39 | A.OFFVIS_ITS ---
Intake Visit Reasons: 6 month f/u Allergies No Known Allergies Allergy (Verified 06/12/24 09:23) Medication List - Last Reconciled 08/28/24 by Daniel Blake MD levonorgestrel (Mirena) intrauterine sertraline 50 mg PO DAILY HPI Comments Details: 33 yr old woman with optic neuritis who is a MS suspect. Gets a few minutes of blurriness in the right eye in some areas of the vision every couple of weeks. . Was getting occasional headache on awakening that goes away by changing position. Occasionally gets a right hand and foot cramp in the last 3 months x4 times. Back of neck sore. Mental fog is gone. While looking at phone for a while she feels lightheaded. She had Covid in mid September with fatigue and bad headaches and mild cough. Since then the headaches increased but now getting less frequent. Anxiety may have also increased. Her left sided headaches had gone away. Had one migraine in her life with a bad headcahe with nausea and photophobia in May 2022. Her neck is fine. May have had optical migraines in her early 20s. Her son is now 2 yr. Sleeps usually thru the night. Getting 6-7 hrs sleep. Doing well overall. Daily headaches subsided. 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 Vision is unchanged. One episode of right 5th finger numbness for 1 hr in the past. Sleeping 8 hrs of decent sleep. Intermittent blurring of vision in both eyes. Has a haziness in the vision. Was prescribed glasses. She has anxiety disorder and is concerned that she may lose vision in both eyes. She has had blurring for 3-4 yrs and her eye exam on more than one occasion was found to have no problem with her vision. No further numbness on the left side, arm and leg. No other neurological symptoms. 02/08/17 ED: Abnormal bilateral visual evoked potentials with delay in the anterior optic pathways.. 02/07/17 MRI brain normal. May 2023: MRI Brain normal. [employer] shows mild delay in the anterior optic pathway particularly on the left. and borderline on the right. DANG and USER normal. [facility] Medical History (Updated 08/28/24 @ 09:02 by Daniel Blake MD) Migraine Tension headache Optic neuritis Demyelinating disease IUD strings lost Rh negative state in antepartum period IUD (intrauterine device) in place Encounter for general adult medical examination with abnormal findings Hematuria Hemorrhoids Chest heaviness Family history of esophageal cancer Thyroid disorder screening Cervical cancer screening History of gestational diabetes Headache in Gestational diabetes mellitus (GDM) Well woman exam Adult general medical exam Asthma History of gestational diabetes Anxiety Surgical History Cellulitis History of incision and drainage Hx of wisdom tooth extraction Hx of dilation and curettage Family History Father Family hx-stroke History of esophageal cancer Mother Anxiety Maternal Grandmother Hx of congestive heart failure Hx of diabetes mellitus Maternal Grandfather Colon cancer Hx of diabetes mellitus Paternal Grandfather Cancer Sister Mental health disorder Maternal Aunt Substance use disorder Social History Household Members: Spouse and Children Housing: House Alcohol intake: never Patient Tobacco Use Status: Never used Tobacco e-Cigarette/Vaping Use: Never Used Second Hand Smoke Exposure: No service: No Current occupational status: employed Gender identity: Female Cognitive needs: No Hearing needs: No Vision needs: No Female Reproductive History Menstrual Age of Menarche: 16 Review of Systems Const Details: ?Sleep:? Difficulty getting to sleepdenies.? Difficulty maintaining sleepdenies?.? Urge to move legsdenies.? Teeth grindingdenies.? Shouting or Kicking during sleep denies.? Abnormal behavior during sleepdenies.? Excessive sleepdenies.? Snoring denies.? Daytime sleepinessdenies. ???General/Constitutional:? Change in appetitedenies.? Chillsdenies.? Fatiguedenies.? Feverdenies.? Weight gaindenies.? Weight lossdenies. ???Ophthalmologic:? Blurred visionadmits.? Diminished visual acuitydenies. ???ENT:? Stuffinessdenies.? Decreased hearingdenies.? Dry mouthdenies.? Ear paindenies.? Nosebleeddenies.? Ringing in the earsdenies.? Sinus paindenies.? Sore throat denies.? Swollen glandsdenies. ???Endocrine:? Cold intolerancedenies.? Excessive thirstdenies.? Frequent urinationdenies.? Heat intolerancedenies. ???Respiratory:? Shortness of breathdenies.? Chest paindenies.? Coughdenies. ???Breast:? Breast lumpdenies.? Nipple dischargedenies. ???Cardiovascular:? Chest pain at restdenies.? Chest pain with exertiondenies.? Claudicationdenies .? Dizzinessdenies.? Fluid accumulation in the legsdenies.? Irregular heartbeat denies.? Palpitationsdenies. ???Gastrointestinal:? Abdominal paindenies.? Constipationdenies.? Diarrheadenies.? Difficulty swallowingdenies.? Heartburndenies.? Nauseadenies.? Rectal bleedingdenies. ???Hematology:? Easy bruisingdenies.? Prolonged bleedingdenies. ???Genitourinary:? Frequent urinationdenies.? Urgencydenies.? Incontinencedenies.? Erectile Dysfunctiondenies. ???Musculoskeletal:? Neck painadmits.? Back paindenies.? Muscle achesdenies.? Painful jointsdenies.? Sciaticadenies.? Weaknessdenies. ???Podiatric:? Difficulty walkingdenies.? Foot numbnessdenies. ???Neurologic:? Difficulty swallowingdenies.? Balance difficultydenies.? Coordinationnormal.? Difficulty speakingdenies.? Dizzinessdenies.? Faintingdenies.? Gait abnormality denies.? Headacheadmits.? Loss of strengthdenies.? Loss of use of extremity denies.? Low back paindenies.? Memory lossdenies.? Seizuresdenies.? Ticsdenies.? Tingling/Numbnessleft face and left side.? Transient loss of visiondenies.? Tremordenies. ???Psychiatric:? Anxietyadmits.? Auditory/visual hallucinationsdenies.? Delusionsdenies.? Depressed mooddenies.? Stressorsdenies.? Substance abusedenies.? Suicidal thoughtsdenies. Physical Exam Neuro Other: Neurological: Abnormal neurological findings:??none.?Mental Status:??alert and oriented X 3,?Normal attention, orientation, memory and affect.?Cranial Nerves:??Pupils are equal, round and reactive to light. Fundoscopy shows normal disc bilaterally. External occular muscles are intact. Visual elder are full, no ptosis. Face is symmetrical, no facial weakness or droop. Facial sensations are normal. Tongue protrudes in midline. Palate elevates symmetrically. Shoulder shrugging is normal..?Motor Examination:??Normal muscle tone, bulk and strength,?No atrophy or fasciculations,?No drift of the extended upper extremities,?Deep tendon reflexes are 2+?,?Plantars are flexor?.?Straight Leg Raising:??90 degrees.?Sensory Exam:??Normal light touch, temperature, pinprick, vibration and joint-position sensations?,?Rhomberg sign is absent.?Coordination:??no ataxia,?no titubation,?dsdmlp-av-ultp, dujq-acze-zpyh test and rapid alternating movements were normal.?Gait Exam:??Within normal limits.?Cerebellar Signs:??Apbtul-rh-jqpo and jzrh-cp-asrj is normal,?no dysdiadochokinesia?.?Extrapyramidal System:??No tremor, rigidity with normal facial expressions,?No bradykinesia, no bradyphrenia. Normal arm swing and posture. No propulsion or retropulsion.?Speech:??Normal,?no dysphasia or dysarthria..? Mini Mental Status Exam: Level of Consciousness:??Alert.?Orientation:??Knows correct year, month, date, day and season,?Knows correct city, county and state. Knows correct location and floor.?Registration:??Able to register 3 objects.?Attention:??Serial 7's perfo rmed accurately.?Recall:??Able to recall 3 out of 3 objects.?Language:??Normal spontaneous speech, fluency, repetition,naming, comprehension, reading and writing.?Total Score:??30/30.? General Examination: GENERAL APPEARANCE:??normal,?in no acute distress.?HEAD:??normocephalic,?atraumatic.?EYES:??sclera non- icteric,?conjunctiva clear.?EARS:??auditory canal clear,?tympanic membrane intact, clear.?NOSE:??no lesions.?ORAL CAVITY:??gums normal,?mucosa moist,?no lesions.?THROAT:??clear.?NECK/THYROID:??no cervical lymphadenopathy,?thyroid normal,?neck supple, full range of motion,?no carotid bruit.?SKIN:??no rashes,?no significant birthmarks.?HEART:??S1, S2 normal,?no murmurs.?LUNGS:??clear anteriorly and posteriorly.?CHEST:??no gross rib deformity,?clear to auscultation.?BACK:??normal exam of spine.?EXTREMITIES:??no edema.?PERIPHERAL PULSES:??normal.?PSYCH:??alert, oriented,?cognitive function intact,?cooperative with exam.? Assessment & Plan Assessment & Plan (1) Optic neuritis: Code(s): H46.9 - Unspecified optic neuritis Category: Medical (2) Tension headache: Code(s): G44.209 - Tension-type headache, unspecified, not intractable Category: Medical (3) Demyelinating disease: Code(s): G37.9 - Demyelinating disease of central nervous system, unspecified Category: Medical Plan f/u MRI brain for MS Orders: Orders MR head/brain wo/w con Today G37.9 - Demyelinating disease of central nervous system, unspecified, H46.9 - Unspecified optic neuritis Coding Level of Care Code Est Pt Level 4 (35523) Diagnoses Optic neuritis H46.9 Tension headache G44.209 Demyelinating disease G37.9
--- OUTSIDE RECORDS SUMMARY | 2024-08-28 08:41 | XMS_ITS | Data Portability ---
Author Organization [facility], [facility] (Prof.) Address [address], [address] [place] [address] Assessment No assessment recorded. Plan of Treatment [...] SNOMED-CT Code Diagnosis ICD10 Code Diagnosis Note [id number] Darrin Noyola MD [address] [address] 06/15/2017 11:02:58 06/15/2017 11:03:52 Health Concerns Section Related Observation LastModified by Organization Detai ls LastModified Time None Recorded Concern Status LastModified by Organization Details LastModified Time None Recorded Advance Directives Directive None Recorded Payers Insurance Date Sequence Insurance Name Policy Number Policy Thomas Covered Member ID Thomas Member ID Guarantor Name 09/25/2017 1 [facility] [id number] Ladi Jung [id number] Ladi Jung 10/19/2017 1 [facility] [id number] Ladi Jung [id number] Ladi Jung OBGyn Episode No OBEpisode recorded.
--- OUTSIDE RECORDS SUMMARY | 2024-08-28 08:41 | XMS_ITS | Clinical Summary ---
Author Organization [facility] ity Address [address] [place] [address] Care Team Providers Care Customer Resource Specialist Name Role Phone Elicia Yates MD Primary Care Provider [phone]- [phone] Social History Tobacco Use Types Packs/Day Years [...] - 2023-2 5 season) 2023 Influenza Vaccine (#1) 2024 HIB Vaccines Aged Out No longer [...] 5 Years) and At-Risk Patients (6 to 49 Years) Aged Out No longer eligi ble [...] RESULTING AGENCY - 05/11/2017 9:49 AM EDT [id number] THINPREP PAP, IMAGED: NEGATIVE FOR SQUAMOUS INTRAEPITHELIAL LESION AND MALIGNANCY . MANAS BOYD(ASCP) (CASE ELECTRONICALLY SIGNED 05 11 2017) ADEQUACY: SATISFACTORY. ENDOCERVICAL/TRANSFORMATION ZONE COMPONENT PRESENT. SOURCE: THINPREP PAP HPV IF ASCUS, CERVICAL, IMAGED: CLINICAL INFORMATION: HPV IF DIAGNOSIS OF ASCUS. , PAP HX NEG, Z12.4 Yasemin MUÑOZ LAB CYTOLOGY ORDERABLES Final R esult HISTORICAL TESTING LAB RESULTING AGENCY from Last 3 Months or Most Recently Relevant to Health Maintenance Care Teams Customer Resource Specialist Relationship Specialty Start Date End Date Elicia Yates MD PCP - General Internal Medicine 03/07/17
== END 2024-08-28 09:13 | disposition home or self-care (01) ==
LOC: HO.HSM 08:35
PROVIDERS: PCP Internal Medicine; Referring Provider Internal Medicine; Visit Provider Psychiatry & Neurology Neurology
DX: H46.9 Unspecified optic neuritis (principal); G44.209 Tension-type headache, unspecified, not intractable; G37.9 Demyelinating disease of central nervous system, unspecified
CPT/HCPCS: 99214

== ENCOUNTER → 2024-09-16 10:26 | Outpatient (BNV) | payer OTHER, SELFPAY | PROVIDERS: PCP Internal Medicine; Visit Provider Radiology Diagnostic Radiology | DX: G37.9 Demyelinating disease of central nervous system, unspecified (principal) | CPT/HCPCS: 70551 ==

== ENCOUNTER 2024-09-16 10:32 | Outpatient (REF) | payer OTHER, SELFPAY ==
--- NOTE | ~2024-09-16 | MR_ITS ---
EXAMINATION: MR BRAIN WITHOUT CONTRAST CLINICAL INFORMATION: Demyelinating disease. COMPARISON: May 24, 2023. TECHNIQUE: MRI of the brain was obtained using routine sequences without contrast. FINDINGS: No restricted diffusion. No acute intracranial hemorrhage, mass effect, midline shift, hydrocephalus or herniation. Richardson-white matter differentiation is normal. Posterior cranial fossa contents demonstrated no signal abnormality or mass effect. There is a borderline position of the cerebellar tonsils. Sellar/suprasellar region demonstrated no signal abnormality or masses. Polypoid mucosal thickening maxillary sinuses and right ethmoid cells with air-fluid levels in the right maxillary sinus. Flow-void signal within the main cerebral vessels is normal. MR/MR head/brain wo con IMPRESSION: No acute or structural brain abnormality. No gross demyelinating plaques. Polypoid complex paranasal sinus disease. Recommend direct inspection.. Electronically signed by: Oli Butler MD 09/16/2024 12:28 PM EDT
--- OUTSIDE RECORDS SUMMARY | 2024-09-16 11:20 | XMS_ITS | Clinical Summary ---
Author Organization [facility] ity Address [address] [place] [address] Care Team Providers Care Manager Application Development Name Role Phone Elicia Yates MD Primary Care Provider +1- [phone] Social History Tobacco Use Types Packs/Day Years [...] Vaccine ( - 2023-2 5 season) 2023 Depression Screening 02/14/2024 Influenza Vaccine (#1) 2024 HIB Vaccines Aged [...] RESULTING AGENCY - 05/11/2017 9:49 AM EDT [id number] THINPREP PAP, IMAGED: NEGATIVE FOR SQUAMOUS INTRAEPITHELIAL LESION AND MALIGNANCY . MANAS BOYD(ASCP) (CASE ELECTRONICALLY SIGNED 05 11 2017) ADEQUACY: SATISFACTORY. ENDOCERVICAL/TRANSFORMATION ZONE COMPONENT PRESENT. SOURCE: THINPREP PAP HPV IF ASCUS, CERVICAL, IMAGED: CLINICAL INFORMATION: HPV IF DIAGNOSIS OF ASCUS. , PAP HX NEG, Z12.4 us aYsemin Andre CNM LAB CYTOLOGY ORDERABLES Final R esult HISTORICAL TESTING LAB RESULTING AGENCY from Last 3 Months or Most Recently Relevant to Health Maintenance Care Teams Manager Application Development Relationship Specialty Start Date End Date Elicia Yates MD PCP - General Internal Medicine 03/07/17
== END 2024-09-16 10:33 | disposition home or self-care (01) ==
LOC: HO.MRI 10:32
PROVIDERS: PCP Internal Medicine; Visit Provider Psychiatry & Neurology Neurology
DX: G37.9 Demyelinating disease of central nervous system, unspecified (principal); H46.9 Unspecified optic neuritis
CPT/HCPCS: 70551

== ENCOUNTER 2024-10-23 15:20 | Outpatient (AMB) | payer OTHER, SELFPAY ==
--- NOTE | 2024-10-23 15:26 | MHC.PC.OV ---
Vital Signs 10/23/24 15:27 Height 5 ft 3 in Weight 142 lb BMI 25.2 BP 104/66 Blood Pressure Location Rt brachial Position Sitting Respiration 19 Pulse 101 H Pulse Source Pulse Oximeter Temp 98.3 F Temp Source Oral Pulse Oximetry (%) 98 Oxygen Delivery Method Room Air Intake Visit Reasons: Annual PE Allergies No Known Allergies Allergy (Verified 10/23/24 15:28) Medication List - Last Reconciled 10/23/24 by Natasha Simmons MD levonorgestrel (Mirena) intrauterine sertraline 50 mg PO DAILY Tobacco use date assessed: 10/23/24 Dental Screening Dental Screen Date: 06/12/24 HPI Annual PE HPI Details Physical exam appointment The patient is a 34-year-old female presenting with chronic jaw popping and headaches. Temporomandibular Joint Disorder: - The patient reports chronic jaw clicking, primarily when opening her mouth, that has been present for approximately 6 months. - She indicates that the jaw popping is prominent but does not consistently cause pain. - The patient stopped chewing gum due to associated discomfort. - No previous recognition of teeth grinding. - Dental evaluation 6 months ago Trigeminal Neuralgia: - The patient experiences intermittent shooting pain when chewing gum, onset approximately in the past 6 months. - Pain episodes coincide with mild, tension-type headaches. Tension-Type Headache: - Patient reports tension-type headaches localized to the left upper head area, correlating with periods of jaw stress. - Indicated resolution of past monthly cough. Anxiety Disorder: - Diagnosed with anxiety, currently managed with sertraline 75 mg. - Increase in dosage recently from 50 mg to [address] Estrada. Vitamin D Deficiency: - May laboratory results indicated a deficiency. - The patient was advised to supplement daily but has been inconsistent. Elevated Bilirubin: - History of elevated bilirubin with resolved yellowing of eyes, noticeable in September. 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 Health Maintenance - Tetanus vaccination received in 2018. - Low vitamin D levels require daily supplementation. - OBGYN visit up-to-date [facility] - Dr. Estrada (provider prescribing sertraline) - Dr. Snyder Patient Instructions - Take vitamin D supplement daily to address deficiency. - Monitor jaw activity, avoiding gum chewing to mitigate TMJ-related symptoms. Left side - Schedule blood lab tests while fasting as ordered; follow up if issues are detected. Follow-up 1 year Review of Systems - General: No fever no chills - Neurological: No headaches no dizziness - Ear nose throat: No sore throat no hearing difficulty no ear pain - Cardiovascular: No syncope, no chest pain, no palpitations - Gastrointestinal: No nausea vomiting or diarrhea - Endocrine: No polyuria polydipsia no heat intolerance - Genitourinary: No dysuria - Skin: No new complaints Physical Exam General: Cooperative, healthy appearing, comfortable, no acute distress Orientation: Patient oriented x3 Limitations: None Head: Normal to inspection, clicking noted left TMJ Ears: Within normal limit visually Nose: Normal external nose present Face and sinus: Normal facial exam, except clicking left TMJ Eyes: Appearance normal, extraocular movement intact pupils reactive Neck: Normal visual inspection and supple Respiratory: Normal respiratory effort and able to speak in complete sentences. Clear to auscultation, no stridor Cardiovascular: S1 and S2 RRR GI: Normal to inspection. Soft to palpation and nontender, no diarrhea, constipation, nausea Skin: Turgor normal, no acute findings Neuro: Patient oriented x3, motor sensory intact, balance intact, tandem pass Extremities: Normal to inspection, full range of motion PFSH Medical History Migraine Tension headache Optic neuritis Demyelinating disease IUD strings lost Rh negative state in antepartum period IUD (intrauterine device) in place Encounter for general adult medical examination with abnormal findings Hematuria Hemorrhoids Chest heaviness Family history of esophageal cancer Thyroid disorder screening Cervical cancer screening History of gestational diabetes Headache in Gestational diabetes mellitus (GDM) Well woman exam Adult general medical exam Asthma History of gestational diabetes Anxiety Surgical History Cellulitis History of incision and drainage Hx of wisdom tooth extraction Hx of dilation and curettage Family History Father Family hx-stroke History of esophageal cancer Mother Anxiety Maternal Grandmother Hx of congestive heart failure Hx of diabetes mellitus Maternal Grandfather Colon cancer Hx of diabetes mellitus Paternal Grandfather Cancer Sister Mental health disorder Maternal Aunt Substance use disorder Social History Household Members: Spouse and Children Housing: House Alcohol intake: never Patient Tobacco Use Status: Never used Tobacco e-Cigarette/Vaping Use: Never Used Second Hand Smoke Exposure: No service: No Current occupational status: employed Gender identity: Female Cognitive needs: No Hearing needs: No Vision needs: No Female Reproductive History Menstrual Age of Menarche: 16 Questionnaire PHQ-9 Over the last 2 weeks, how often have you been bothered by any of the following problems? 1. Little interest or pleasure in doing things: not at all 2. Feeling down, depressed, or hopeless: not at all 3. Trouble falling or staying asleep, or sleeping too much: not at all 4. Feeling tired or having little energy: not at all 5. Poor appetite or overeating: not at all 6. Feeling bad about yourself - or that you are a failure or have let yourself or your family down: not at all 7. Trouble concentrating on things, such as reading the newspaper or watching television: not at all 8. Moving or speaking so slowly that other people could have noticed. Or the opposite - being so fidgety or restless that you have been moving around a lot more than usual: not at all 9. Thoughts that you would be better off or of hurting yourself in some way: not at all Total score: 0 Depression Screening Interpretation: Negative Depression Screening Done: Yes 62814 - PHQ-9 Billing: Yes Source: Developed by Drs. Americo Gong, Saloni Ordoñez, Constantino Pantoja and colleagues, with an educational cherry from [employer]. Thrive Questionnaire Date Thrive assessed: 10/23/24 I am a: Patient What is your living situation today?: I have a steady place to live Within the past 12 months, did the food you bought not last and you didn't have the money to get more?: Never true Within the past 12 months, did you worry whether your food would run out before you got money to buy more?: Never true Do you have trouble paying for medicines?: No Do you have trouble getting transportation to medical appointments?: No Do you have trouble paying your heating and electricity bill?: No Do you have trouble taking care of your child, family member or friend?: No Do you have trouble with day-to-day activities such as bathing, preparing meals, shopping, managing finances, etc.?: No Are you currently unemployed and looking for a job?: No Are you interested in more education?: No Please select the resources that you would like help with: None Currently or been in a relationship where the following occur: No concerns reported THRIVE Score: 0 HENOK-7 AMB Questionnaire HENOK-7 Date HENOK - 7 assessed: 06/12/24 Feeling nervous, anxious, or on edge: 1 = Several days Not being able to stop or control worryin = Not at all Worrying too much about different things: 0 = Not at all Trouble relaxin = Not at all Being so restless that it is hard to sit still: 1 = Several days Becoming easily annoyed or irritable: 0 = Not at all Feeling afraid as if something awful might happen: 0 = Not at all Total HENOK-7 score (0-4 normal; 5-9 mild; 10-14 moderate; 15-21 severe): 2 Source: Developed by Drs. Americo Gong, Saloni Ordoñez, Constantino Pantoja and colleagues, with an educational cherry from [employer]. Physical exam (Primary Care) Vital Signs: Last Vital Signs Temp 98.3 F 10/23/24 15:27 Pulse 101 H 10/23/24 15:27 Resp 19 10/23/24 15:27 BP 104/66 10/23/24 15:27 Pulse Ox 98 10/23/24 15:27 Oxygen Delivery Method Room Air 10/23/24 15:27 BMI result Body Mass Index 25.2 Tobacco/Smoking Status: Tobacco use Status Tobacco use date assessed 10/23/24 10/23/24 15:31 Patient Tobacco Use Status Never used Tobacco 10/23/24 15:31 e-Cigarette/Vaping Use Never Used 10/23/24 15:31 PHQ-9: PHQ-9 Score PHQ-9: Total score 0 10/23/24 15:31 Depression Screening Interpretation: Negative Thrive Assessment: Date of Thrive Assessment Date Thrive assessed 10/23/24 10/23/24 15:31 Currently or been in a relationship where the following occur: No concerns reported Coding Level of Care Code Est Pt Level 3 (93810) Est Pt Prev Care 18-39y(53051) Diagnoses Encounter for general adult medical examination with abnormal findings Z00.01 TMJ click R29.898 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 Anxiety, generalized F41.1 Additional Codes PHQ-9 - 51726 - PHQ-9 Billing: Yes ([id number]) Assessment & Plan Assessment & Plan (1) Encounter for general adult medical examination with abnormal findings: Code(s): Z00.01 - Encounter for general adult medical examination with abnormal findings Category: Medical (2) TMJ click: Code(s): R29.898 - Other symptoms and signs involving the musculoskeletal system Category: Medical (3) Trigeminal neuropathy: Code(s): G50.9 - Disorder of trigeminal nerve, unspecified Category: Medical (4) Anxiety, generalized: Code(s): F41.1 - Generalized anxiety disorder Category: Medical Plan Physical exam appointment The patient is a 34-year-old female presenting with chronic jaw popping and headaches. Temporomandibular Joint Disorder: - The patient reports chronic jaw clicking, primarily when opening her mouth, that has been present for approximately 6 months. - She indicates that the jaw popping is prominent but does not consistently cause pain. - The patient stopped chewing gum due to associated discomfort. - No previous recognition of teeth grinding. - Dental evaluation 6 months ago Trigeminal Neuralgia: - The patient experiences intermittent shooting pain when chewing gum, onset approximately in the past 6 months. - Pain episodes coincide with mild, tension-type headaches. Tension-Type Headache: - Patient reports tension-type headaches localized to the left upper head area, correlating with periods of jaw stress. - Indicated resolution of past monthly cough. Anxiety Disorder: - Diagnosed with anxiety, currently managed with sertraline 75 mg. - Increase in dosage recently from 50 mg to [address] Estrada. Vitamin D Deficiency: - May laboratory results indicated a deficiency. - The patient was advised to supplement daily but has been inconsistent. Elevated Bilirubin: - History of elevated bilirubin with resolved yellowing of eyes, noticeable in September. 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 Health Maintenance - Tetanus vaccination received in 2018. - Low vitamin D levels require daily supplementation. - OBGYN visit up-to-date [facility] - Dr. Estrada (provider prescribing sertraline) - Dr. Snyder Patient Instructions - Take vitamin D supplement daily to address deficiency. - Monitor jaw activity, avoiding gum chewing to mitigate TMJ-related symptoms. Left side - Schedule blood lab tests while fasting as ordered; follow up if issues are detected. Follow-up 1 year Orders: Orders Lipid Panel Today G50.9 - Disorder of trigeminal nerve, unspecified, R29.898 - Other symptoms and signs involving the musculoskeletal system, Z00.01 - Encounter for general adult medical examination with abnormal findings Complete Blood Count Auto Diff Today G50.9 - Disorder of trigeminal nerve, unspecified, R29.898 - Other symptoms and signs involving the musculoskeletal system, Z00.01 - Encounter for general adult medical examination with abnormal findings Comprehensive [place]. Panel Fast Today G50.9 - Disorder of trigeminal nerve, unspecified, R29.898 - Other symptoms and signs involving the musculoskeletal system, Z00.01 - Encounter for general adult medical examination with abnormal findings Vitamin B12 Today G50.9 - Disorder of trigeminal nerve, unspecified, R29.898 - Other symptoms and signs involving the musculoskeletal system, Z00.01 - Encounter for general adult medical examination with abnormal findings
[2024-10-23 15:27] VITALS: BP 104/66; PULSE 101; RESP 19; TEMP 36.8; O2SAT 98; BMI 25.2
--- OUTSIDE RECORDS SUMMARY | 2024-10-23 18:19 | XMS_ITS | Clinical Summary ---
Author Organization [facility] ity Address [address] [place] [address] Care Team Providers Care Fiscal Officer Name Role Phone Elicia Yates MD Primary Care Provider [phone]- [phone] Social History Tobacco Use Types Packs/Day Years [...] Cancer Screening: P ap Smear 05/04/2020 05/04/2017 Depression Screening 02/14/2024 COVID-19 Vaccine (2023-2 5 season) 2024 Influenza Vaccine (#1) 2024 HIB Vaccines Aged [...] RESULTING AGENCY - 05/11/2017 9:49 AM EDT [id number] THINPREP PAP, IMAGED: NEGATIVE FOR SQUAMOUS INTRAEPITHELIAL LESION AND MALIGNANCY . MANAS BOYD(ASCP) (CASE ELECTRONICALLY SIGNED 05 11 2017) ADEQUACY: SATISFACTORY. ENDOCERVICAL/TRANSFORMATION ZONE COMPONENT PRESENT. SOURCE: THINPREP PAP HPV IF ASCUS, CERVICAL, IMAGED: CLINICAL INFORMATION: HPV IF DIAGNOSIS OF ASCUS. , PAP HX NEG, Z12.4 us Yasemin Andre CNM LAB CYTOLOGY ORDERABLES Final R esult HISTORICAL TESTING LAB RESULTING AGENCY from Last 3 Months or Most Recently Relevant to Health Maintenance Care Teams Fiscal Officer Relationship Specialty Start Date End Date Elicia Yates MD PCP - General Internal Medicine 03/07/17
== END 2024-10-23 15:47 | disposition home or self-care (01) ==
LOC: HO.HMCC 15:21
PROVIDERS: PCP Internal Medicine; Visit Provider Internal Medicine
DX: Z00.01 Encounter for general adult medical examination with abnormal findings (principal); R29.898 Other symptoms and signs involving the musculoskeletal system; G50.9 Disorder of trigeminal nerve, unspecified; F41.1 Generalized anxiety disorder

== ENCOUNTER → 2024-10-23 15:20 | Outpatient (BNVA) | payer OTHER, SELFPAY | PROVIDERS: PCP Internal Medicine; Visit Provider Internal Medicine | DX: Z00.01 Encounter for general adult medical examination with abnormal findings (principal); R29.898 Other symptoms and signs involving the musculoskeletal system; G50.9 Disorder of trigeminal nerve, unspecified; F41.1 Generalized anxiety disorder; E55.9 Vitamin D deficiency, unspecified; Z13.31 Encounter for screening for depression | CPT/HCPCS: 96127 ==

== ENCOUNTER 2024-10-24 07:44 | Outpatient (REF) | payer OTHER, SELFPAY ==
--- OUTSIDE RECORDS SUMMARY | 2024-10-24 07:47 | XMS_ITS | Clinical Summary ---
Author Organization [facility] ity Address [address] [place] [address] Care Team Providers Care Computer Systems Information Director Name Role Phone Elicia Yates MD Primary Care Provider [phone]- [phone] Social History Tobacco Use Types Packs/Day Years [...] RESULTING AGENCY - 05/11/2017 9:49 AM EDT [id number] THINPREP PAP, IMAGED: NEGATIVE FOR SQUAMOUS INTRAEPITHELIAL [...] Recently Relevant to Health Maintenance Care Teams Computer Systems Information Director Relationship Specialty Start Date End Date Elicia Yates MD PCP - General Internal Medicine 03/07/17
[2024-10-24 08:02] LABS: MANUAL DIFF FLAG NO
[2024-10-24 08:47] LABS: Hematocrit 40.9 % (37.0-47.0); Hemoglobin 14.4 g/dl (12.0-16.0); Imm Gran Abs Auto 0.01 X10*3/uL (0.00-0.03); Imm Gran Pct Auto 0.2 % (0.0-0.4); Lymphocytes Absolute Auto 1.3 X10*3/uL (1.2-4.9); Mean Corpuscular HGB Conc 35.2 g/dl (31.0-35.0); Mean Corpuscular Hemoglobin 31.8 pg (27.0-33.0); Mean Corpuscular Volume 90.3 fL (80.0-98.0); NRBC Abs Auto 0.000 X10*3/uL (0.0-0.012); NRBC Pct Auto 0.0 /100WBC (0.0-0.2); Platelet Count 226 X10*3/uL (160-400); Red Blood Count 4.53 X10*6/uL (4.20-5.50); White Blood Count 4.5 X10*3/uL (4.8-10.8)
[2024-10-24 09:13] LABS: Alanine Aminotransferase 16 U/L (0-31); Albumin Level 4.7 g/dL (3.5-5.0); Alkaline Phosphatase 67 U/L (39-117); Anion Gap 14 (12-20); Aspartate Amino Transferase 21 U/L (5-31); Blood Urea Nitrogen 13 mg/dL (9-16); Calcium 9.0 mg/dL (8.4-10.2); Carbon Dioxide 26 mmol/L (22-29); Chloride 106 mmol/L (96-108); Cholesterol 174 mg/dL (<200); Estimated Glomerular Filt Rate > 60; HDL Cholesterol 57 mg/dL (>40); Potassium 4.1 mmol/L (3.3-5.1); Sodium 142 mmol/L (135-145); Total Protein 7.2 g/dL (6.5-8.0); Triglycerides 62 mg/dL (<150)
[2024-10-24 09:35] LABS: Vitamin B12 316 pg/mL (200-900)
== END 2024-10-24 07:45 | disposition home or self-care (01) ==
LOC: HO.LAB 07:44
PROVIDERS: PCP Internal Medicine; Visit Provider Internal Medicine
DX: Z00.01 Encounter for general adult medical examination with abnormal findings (principal); R29.898 Other symptoms and signs involving the musculoskeletal system; G50.9 Disorder of trigeminal nerve, unspecified; Z13.6 Encounter for screening for cardiovascular disorders
CPT/HCPCS: 36415; 80053; 80061; 82607; 85025

== ENCOUNTER 2024-10-31 13:02 | Outpatient (AMB) | payer OTHER, SELFPAY ==
--- NOTE | 2024-10-31 13:04 | MHC.OFFVIS ---
Vital Signs 10/31/24 13:06 Height 5 ft 3 in Weight 138 lb 14.259 oz BMI 24.6 BP 110/62 Blood Pressure Location Lt brachial Position Sitting Pulse 80 Pulse Source Monitor Intake Visit Reasons: 1 yr follow up Advanced Practice Psychiatric Nurse Required: No Accompanied by: Self / Same As Patient Allergies No Known Allergies Allergy (Verified 10/23/24 15:28) Medication List - Last Reconciled 10/31/24 by Melly Parker NP-C levonorgestrel (Mirena) intrauterine sertraline 50 mg PO DAILY HPI HPI 1 yr follow up: Details: Ladi is a 34-year-old female with no cardiac history who has been evaluated for heart palpitations and chest discomforts without cardiac findings who now presents for follow-up. Her last visit was 10/27/2023. Today she reports that she has been doing very well overall. She still gets occasional heart palpitations but they only last sec and do not cause her much concern. She has not been bothered by chest discomfort, no shortness of breath, lightheadedness, presyncope, syncope. No PND, orthopnea or edema. She reports good activity tolerance. She is working full-time [place] [employer] [place] [place] Continues to avoid caffeinated beverages. Maintains good hydration. [facility] Medical History Migraine Tension headache Optic neuritis Demyelinating disease IUD strings lost Rh negative state in antepartum period IUD (intrauterine device) in place Encounter for general adult medical examination with abnormal findings Hematuria Hemorrhoids Chest heaviness Family history of esophageal cancer Thyroid disorder screening Cervical cancer screening History of gestational diabetes Headache in Gestational diabetes mellitus (GDM) Well woman exam Adult general medical exam Asthma History of gestational diabetes Anxiety Surgical History Cellulitis History of incision and drainage Hx of wisdom tooth extraction Hx of dilation and curettage Family History Father Family hx-stroke History of esophageal cancer Mother Anxiety Maternal Grandmother Hx of congestive heart failure Hx of diabetes mellitus Maternal Grandfather Colon cancer Hx of diabetes mellitus Paternal Grandfather Cancer Sister Mental health disorder Maternal Aunt Substance use disorder Social History Household Members: Spouse and Children Housing: House Alcohol intake: never Patient Tobacco Use Status: Never used Tobacco e-Cigarette/Vaping Use: Never Used Second Hand Smoke Exposure: No service: No Current occupational status: employed Gender identity: Female Cognitive needs: No Hearing needs: No Vision needs: No Female Reproductive History Menstrual Age of Menarche: 16 Review of Systems Const All systems reviewed & are unremarkable except as noted in HPI and below Denies chills, Denies fatigue, Denies fever(s), Denies frequent falls, Denies weakness, Denies weight gain and Denies weight loss ENT Denies dizziness Card Denies chest pain, Denies leg edema, Denies lightheadedness, Denies palpitations, Denies dyspnea and Denies dyspnea on exertion Resp Denies cough, Denies dyspnea and Denies dyspnea on exertion GI Denies hematochezia Musc Denies abnormal gait, Denies muscle weakness, Denies numbness, Denies radiating pain into limb and Denies tingling Neuro Denies abnormal gait, Denies dizziness, Denies frequent falls, Denies numbness, Denies tingling and Denies weakness Endo Denies fatigue and Denies palpitations Physical Exam Vital Signs: Last Vital Signs Pulse 80 10/31/24 13:06 BP 110/62 10/31/24 13:06 BMI result Body Mass Index 24.6 Const General: cooperative, healthy appearing, comfortable and no acute distress Orientation/consciousness: patient oriented x3 HEENT Head: Yes normal to inspection Chest Chest palpation & inspection: normal inspection of the chest Resp Effort & Inspection: normal respiratory effort Auscultation: clear to auscultation bilaterally Cardio Jugular venous distension: no JVD Rate: regular rate Rhythm: regular rhythm Neuro General: patient oriented x3 Extrem General: Yes normal to inspection, No no pedal edema and No calf tenderness Psych Appearance: grossly normal Mental Status: mental status grossly normal Speech and movement: Normal speech and movement present Office Procedures EKG Details: Today, read by me, normal sinus rhythm with sinus arrhythmia, rate 80, QTC 392 milliseconds [id number], Complete Assessment & Plan Assessment & Plan (1) Chest heaviness: Code(s): R07.89 - Other chest pain Category: Medical Plan: Patient reports intermittent nonexertional heaviness/pressure in her chest. Cardiac evaluation includes. EKGs with sinus rhythm without acute ST or T-wave abnormalities. Last Echocardiogram done 10/26/2022 showed EF 67%, no valve abnormalities. An exercise stress test was done on 03/14/2023 with exercise 8 minutes with report of chest discomfort during the 5 to 7 minute luly of exercise then her symptom resolved for the last minute of exercise. She had no EKG changes of ischemia. Test results previously reviewed with her and offered reassurance. At this time her symptoms are not concerning. EKG today showing normal sinus rhythm with sinus arrhythmia rate 80. She is low risk for coronary artery disease with her young age and low cardiac risk profile. Cardiology follow-up PRN. (2) Palpitations: Code(s): R00.2 - Palpitations Category: Medical Plan: Reports of heart palpitations, currently brief and lasting sec. Holter monitor done 10/26/2022 for 3 days shows sinus rhythm with average heart rate 78, heart rate range 46 to 176, rare ventricular and supraventricular ectopy, 14% of the time heart rate greater than 100. Echo had showed normal EF. Test results reviewed with her at that time. Offered reassurance. Continue to avoid caffeine, continue good hydration, getting adequate rest, increasing her physical activity as tolerated. Reviewed that heart rate going up with physical activity is a normal physiological response. Plan Time spent on chart review, documentation, interview and assessment Coding Level of Care Code Est Pt Level 3 (38448) Complex EM visit Add On G2211 Diagnoses Chest heaviness R07.89 Palpitations R00.2 CPT Codes EKG - CPT: 81134-[id number], Complete ([id number]) Time Spent (min) 22
[2024-10-31 13:06] VITALS: BP 110/62; PULSE 80; BMI 24.6
--- OUTSIDE RECORDS SUMMARY | 2024-10-31 15:05 | XMS_ITS | Clinical Summary ---
Author Organization [facility] ity Address [address] [place] [address] Care Team Providers Care Clinical Training Specialist Name Role Phone Elicia Yates MD Primary Care Provider [phone]- [phone] Social History Tobacco Use Types Packs/Day Years [...] complete this topic RSV Immunization Patients Un ceazr 20 months Aged Out No longer eligible [...] RESULTING AGENCY - 05/11/2017 9:49 AM EDT [id number] THINPREP PAP, IMAGED: NEGATIVE FOR SQUAMOUS INTRAEPITHELIAL [...] Recently Relevant to Health Maintenance Care Teams Clinical Training Specialist Relationship Specialty Start Date End Date Elicia Yates MD PCP - General Internal Medicine 03/07/17
== END 2024-10-31 13:17 | disposition home or self-care (01) ==
LOC: HO.HCS 13:02
PROVIDERS: PCP Internal Medicine; Visit Provider Nurse Practitioner Family
DX: R07.89 Other chest pain (principal); R00.2 Palpitations
CPT/HCPCS: 93010; 99213

== ENCOUNTER → 2024-10-31 13:02 | Outpatient (BNVA) | payer OTHER, SELFPAY | PROVIDERS: PCP Internal Medicine; Visit Provider Nurse Practitioner Family | DX: R00.2 Palpitations (principal); R07.89 Other chest pain | CPT/HCPCS: 93005 ==

== ENCOUNTER 2024-12-27 12:43 | Outpatient (AMB) | payer OTHER, SELFPAY ==
[2024-12-27 12:46] VITALS: BP 132/80; PULSE 92; O2SAT 97; BMI 25.5
--- NOTE | 2024-12-27 12:46 | A.OFFPC_ITS ---
Vital Signs 12/27/24 12:46 Height 5 ft 3 in Weight 144 lb BMI 25.5 BP 132/80 Blood Pressure Location Lt brachial Position Sitting Pulse 92 Pulse Source Pulse Oximeter Pulse Oximetry (%) 97 Intake Visit Reasons: lump under skin Allergies No Known Allergies Allergy (Verified 12/27/24 12:47) Medication List - Last Reconciled 12/27/24 by Natasha Simmons MD levonorgestrel (Mirena) intrauterine sertraline 50 mg PO DAILY Tobacco use date assessed: 10/23/24 Dental Screening Dental Screen Date: 06/12/24 HPI lump under skin HPI Details History of Present Illness The patient is a 34-year-old female presenting with concerns about skin lumps on her leg and forearm. Skin Lumps: - The patient reports a long-standing ted mp on her leg and a new lump on her forearm, which is causing her some concern. - She believes the lump on her leg may b e increasing in size, but she has noticed the one on her arm more recently. Exercise-induced tachycardia: - The patient recently resumed running a bout a month and a half ago after a 6-7 year hiatus. - She notes that during physical activit y, her heart rate elevates to the 170s- 190s, sitting in the 180s for up to 40 minutes while running, and it takes a while to return to a normal rate. - She denies experiencing shortness of b reath or chest pains during these episodes. - The patient was seen by cardiology in October, where she was told her symptoms were fine and largely anxiety-related. - She also e-mailed her knitting machine operator, césar brar reaffirmed that her exertional heart rate was not concerning. Temporomandibular joint disorder: - The patient reports TMJ symptoms, with more symptoms on one side and more popping on the other. - She saw a dentist who did not believe she grinds her teeth and offered no specific treatment. - Symptoms are intermittent and included a week of significant bother, as well as a strange facial sensation after certain mouth movements, like reading to her children. Anxiety: - The patient identifies as an anxious p erson and is currently taking sertraline 50 mg, which is prescribed by another provider. - She has a prescription for Ativan but has never used it, citing that the idea of taking it makes her anxious. - She reports a history of two emergency department visits in her early 20s for what was later realized to be anxiety, during which she was treated with Ativan. Medical History: - Anxiety, managed with medication. - Temporomandibular joint disorder (TMJ) . - History of two emergency department vi sits in her early 20s for panic attacks. - Cardiology evaluation in October of this year, which was unremarkable. Problem List - Lipomas left lateral thigh and right f orearm - Exercise-induced tachycardia - Temporomandibular joint disorder - Anxiety - Preventative Care: Influenza vaccinati on declined Plan - The lumps on the patient's leg and arm are assessed to be benign, likely lipomas or a cyst. - Reassurance was provided, and the angela ent was advised to avoid touching the lumps to prevent irritation. - Regarding her elevated heart rate, the patient was informed that it is likely due to deconditioning and will improve as she continues to run. - She was encouraged to continue her run jessica regimen, as long as she remains free of chest pain and shortness of breath. - The TMJ symptoms are likely due to hemanth nt inflammation or trigeminal nerve irritation; no intervention is needed unless the symptoms become a significant nuisance, at which point medication can be considered. - For anxiety, the patient was counseled to take her prescribed Ativan when she feels overly anxious about her symptoms. - Offered influenza vaccine, which the p atient declined. - The option to increase her sertraline dose is also an option she can discuss with her psychiatrist Review of Systems - General: No fever no chills - Neurological: No headaches no dizziness - Ear nose throat: No sore throat no hearing difficulty no ear pain - Cardiovascular: No syncope, no chest pain - Gastrointestinal: No nausea vomiting or diarrhea - Endocrine: No polyuria polydipsia no heat intolerance - Genitourinary: No dysuria , no blood in urine Physical Exam General: No acute distress HEENT: No acute findings Neck: Supple Respiratory system: Able to talk in full sentences, no audible wheeze Cardiovascular: S1-S2 regular in rate and rhythm, heart rate is 92 Gastrointestinal: No pain Extremities: Lump on forearm, possibly lipoma, benign size of Pea firm mobile nontender, I was not able to appreciate lump on left lateral thigh today BIOLOGY MANAGER: Alert awake oriented x3 motor intact Skin: Normal turgor PFSH Medical History Migraine Tension headache Optic neuritis Demyelinating disease IUD strings lost Rh negative state in antepartum period IUD (intrauterine device) in place Encounter for general adult medical examination with abnormal findings Hematuria Hemorrhoids Chest heaviness Family history of esophageal cancer Thyroid disorder screening Cervical cancer screening History of gestational diabetes Headache in Gestational diabetes mellitus (GDM) Well woman exam Adult general medical exam Asthma History of gestational diabetes Anxiety Surgical History Cellulitis History of incision and drainage Hx of wisdom tooth extraction Hx of dilation and curettage Family History Father Family hx-stroke History of esophageal cancer Mother Anxiety Maternal Grandmother Hx of congestive heart failure Hx of diabetes mellitus Maternal Grandfather Colon cancer Hx of diabetes mellitus Paternal Grandfather Cancer Sister Mental health disorder Maternal Aunt Substance use disorder Social History Household Members: Spouse and Children Housing: House Alcohol intake: never Patient Tobacco Use Status: Never used Tobacco e-Cigarette/Vaping Use: Never Used Second Hand Smoke Exposure: No service: No Current occupational status: employed Gender identity: Female Cognitive needs: No Hearing needs: No Vision needs: No Female Reproductive History Menstrual Age of Menarche: 16 Questionnaire Thrive Questionnaire Date Thrive assessed: 06/12/24 I am a: Patient What is your living situation today?: I have a steady place to live Within the past 12 months, did the food you bought not last and you didn't have the money to get more?: Never true Within the past 12 months, did you worry whether your food would run out before you got money to buy more?: Never true Do you have trouble paying for medicines?: No Do you have trouble getting transportation to medical appointments?: No Do you have trouble paying your heating and electricity bill?: No Do you have trouble taking care of your child, family member or friend?: No Do you have trouble with day-to-day activities such as bathing, preparing meals, shopping, managing finances, etc.?: No Are you currently unemployed and looking for a job?: No Are you interested in more education?: No Please select the resources that you would like help with: None Currently or been in a relationship where the following occur: No concerns reported THRIVE Score: 0 HENOK-7 AMB Questionnaire HENOK-7 Date HENOK - 7 assessed: 06/12/24 Source: Developed by Drs. Americo Gong, Saloni Ordoñez, Constantino Pantoja and colleagues, with an educational cherry from [employer]. Physical exam (Primary Care) Vital Signs: Last Vital Signs Pulse 92 12/27/24 12:46 BP 132/80 12/27/24 12:46 Pulse Ox 97 12/27/24 12:46 BMI result Body Mass Index 25.5 Tobacco/Smoking Status: Tobacco use Status Tobacco use date assessed 10/23/24 12/27/24 12:50 Patient Tobacco Use Status Never used Tobacco 12/27/24 12:50 e-Cigarette/Vaping Use Never Used 12/27/24 12:50 Thrive Assessment: Date of Thrive Assessment Date Thrive assessed 06/12/24 12/27/24 12:50 Currently or been in a relationship where the following occur: No concerns reported Coding Level of Care Code Est Pt Level 4 (20425) Diagnoses Exercise-induced tachycardia R00.0 Palpitations R00.2 Anxiety, generalized F41.1 TMJ click R29.898 Lipoma of right upper extremity D17.21 Lipoma location: upper extremity Laterality: right Assessment & Plan Assessment & Plan (1) Exercise-induced tachycardia: Code(s): R00.0 - Tachycardia, unspecified Category: Medical (2) Palpitations: Code(s): R00.2 - Palpitations Category: Medical (3) Anxiety, generalized: Code(s): F41.1 - Generalized anxiety disorder Category: Medical (4) TMJ click: Code(s): R29.898 - Other symptoms and signs involving the musculoskeletal system Category: Medical (5) Lipoma: Code(s): D17.9 - Benign lipomatous neoplasm, unspecified Category: Medical Qualifiers: Lipoma location: upper extremity Laterality: right Qualified Code(s): D17.21 - Benign lipomatous neoplasm of skin and subcutaneous tissue of right arm Plan Skin Lumps: - The patient reports a long-standing lump on her leg and a new lump on her forearm, which is causing her some concern. - She believes the lump on her leg may be increasing in size, but she has noticed the one on her arm more recently. Exercise-induced tachycardia: - The patient recently resumed running about a month and a half ago after a 6-7 year hiatus. - She notes that during physical activity, her heart rate elevates to the 170s- 190s, sitting in the 180s for up to 40 minutes while running, and it takes a while to return to a normal rate. - She denies experiencing shortness of breath or chest pains during these episodes. - The patient was seen by cardiology in October, where she was told her symptoms were fine and largely anxiety-related. - She also e-mailed her knitting machine operator, who reaffirmed that her exertional heart rate was not concerning. Temporomandibular joint disorder: - The patient reports TMJ symptoms, with more symptoms on one side and more popping on the other. - She saw a dentist who did not believe she grinds her teeth and offered no specific treatment. - Symptoms are intermittent and included a week of significant bother, as well as a strange facial sensation after certain mouth movements, like reading to her children. Anxiety: - The patient identifies as an anxious person and is currently taking sertraline 50 mg, which is prescribed by another provider. - She has a prescription for Ativan but has never used it, citing that the idea of taking it makes her anxious. - She reports a history of two emergency department visits in her early 20s for what was later realized to be anxiety, during which she was treated with Ativan. Medical History: - Anxiety, managed with medication. - Temporomandibular joint disorder (TMJ). - History of two emergency department visits in her early 20s for panic attacks. - Cardiology evaluation in October of this year, which was unremarkable. Problem List - Lipomas left lateral thigh and right forearm - Exercise-induced tachycardia - Temporomandibular joint disorder - Anxiety - Preventative Care: Influenza vaccination declined Plan - The lumps on the patient's leg and arm are assessed to be benign, likely lipomas or a cyst. - Reassurance was provided, and the patient was advised to avoid touching the lumps to prevent irritation. - Regarding her elevated heart rate, the patient was informed that it is likely due to deconditioning and will improve as she continues to run. - She was encouraged to continue her running regimen, as long as she remains free of chest pain and shortness of breath. - The TMJ symptoms are likely due to joint inflammation or trigeminal nerve irritation; no intervention is needed unless the symptoms become a significant nuisance, at which point medication can be considered. - For anxiety, the patient was counseled to take her prescribed Ativan when she feels overly anxious about her symptoms. - Offered influenza vaccine, which the patient declined. - The option to increase her sertraline dose is also an option she can discuss w ith her psychiatrist
--- OUTSIDE RECORDS SUMMARY | 2024-12-27 18:34 | XMS_ITS | Clinical Summary ---
Author Organization [facility] ity Address [address] [place] [address] Care Team Providers Care Business Executive Name Role Phone Elicia Yates MD Primary Care Provider [phone] Social History Tobacco Use Types Packs/Day Years [...] of 3 - 19+ 3-dose series) 10/06/2011 HPV Vaccines (1 - 3-dose SCD M series) 10/06/2019 Cervical Cancer Screening: P ap Smear 05/04/2020 05/04/2017 Depression Screening 02/14/2024 COVID-19 Vaccine ( - 2024-2 6 season) 2024 Influenza Vaccine (#1) 2024 RSV Immunization Adult Patie nts (1 - 1-dose 75+ series) 10/06/2067 HIB Vaccines Aged Out No longer eligi [...] RESULTING AGENCY - 05/11/2017 9:49 AM EDT [id number] THINPREP PAP, IMAGED: NEGATIVE FOR SQUAMOUS INTRAEPITHELIAL LESION AND MALIGNANCY . ANIYAH RAPP, MANAS(ASCP) (CASE ELECTRONICALLY SIGNED 05 11 2017) ADEQUACY: SATISFACTORY. ENDOCERVICAL/TRANSFORMATION ZONE COMPONENT PRESENT. SOURCE: THINPREP PAP HPV IF ASCUS, CERVICAL, IMAGED: CLINICAL INFORMATION: HPV IF DIAGNOSIS OF ASCUS. , PAP HX NEG, Z12.4 us Yasemin MUÑOZ LAB CYTOLOGY ORDERABLES Final R esult HISTORICAL TESTING LAB RESULTING AGENCY from Last 3 Months or Most Recently Relevant to Health Maintenance Care Teams Business Executive Relationship Specialty Start Date End Date Elicia Yates MD PCP - General Internal Medicine 03/07/17
== END 2024-12-27 13:15 | disposition home or self-care (01) ==
LOC: HO.HMCC 12:43
PROVIDERS: PCP Internal Medicine; Visit Provider Internal Medicine
DX: R00.0 Tachycardia, unspecified (principal); R00.2 Palpitations; F41.1 Generalized anxiety disorder; R29.898 Other symptoms and signs involving the musculoskeletal system; D17.21 Benign lipomatous neoplasm of skin and subcutaneous tissue of right arm

== ENCOUNTER 2025-01-01 13:57 | Outpatient (REF) | payer OTHER, SELFPAY ==
--- NOTE | ~2025-01-01 | XR_ITS ---
EXAMINATION: XR LUMBOSACRAL SPINE CLINICAL INFORMATION: R20.0 - Anesthesia of skin COMPARISON: None available. TECHNIQUE: Three views of the lumbosacral spine. FINDINGS: No evidence of acute fracture or subluxation. No suspicious bony lesion. Alignment is anatomic. Vertebral body heights are maintained. Disc spaces are maintained. Mild facet degeneration in the lower lumbar spine. SI joints are symmetric. No abnormal soft tissue calcification. IUD projected of the pelvis. XR/XR lumbar spine 2-3V IMPRESSION: No acute findings Electronically signed by: Jewel Gamboa MD 01/02/2025 11:49 AM BILLIE
[2025-01-01 15:24] LABS: Magnesium 2.4 mg/dL (1.6-2.6)
[2025-01-01 21:49] LABS: Folate 8.4 ng/mL (> or = 4.0); Vitamin B12 267 pg/mL (200-900)
== END 2025-01-01 13:58 | disposition home or self-care (01) ==
LOC: HO.XRAY 13:57
PROVIDERS: PCP Internal Medicine; Visit Provider Nurse Practitioner Family
DX: R20.0 Anesthesia of skin (principal)
CPT/HCPCS: 36415; 72100; 82607; 82746; 83735

== ENCOUNTER → 2025-01-01 14:05 | Outpatient (BNV) | payer OTHER, SELFPAY | PROVIDERS: PCP Internal Medicine; Visit Provider Radiology Diagnostic Ultrasound | DX: R20.0 Anesthesia of skin (principal) | CPT/HCPCS: 72100 ==

== ENCOUNTER 2025-01-07 15:55 | Outpatient (AMB) | payer OTHER, SELFPAY ==
--- NOTE | 2025-01-07 15:58 | A.OFFVIS_ITS ---
Intake Visit Reasons: 6m f/u Allergies No Known Allergies Allergy (Verified 12/27/24 12:47) Medication List - Last Reconciled 01/07/25 by Daniel Blake MD levonorgestrel (Mirena) intrauterine sertraline 75 mg PO DAILY HPI Comments Details: 33 yr old woman with optic neuritis who is a MS suspect. Gets a few minutes of blurriness in the right eye in some areas of the vision every couple of weeks. . Was getting occasional headache on awakening that goes away by changing position. Occasionally gets a right hand and foot cramp in the last 3 months x4 times. Back of neck sore. Mental fog is gone. While looking at phone for a while she feels lightheaded. She had Covid in mid September with fatigue and bad headaches and mild cough. Since then the headaches increased but now getting less frequent. Anxiety may have also increased. Her left sided headaches had gone away. Had one migraine in her life with a bad headcahe with nausea and photophobia in May 2022. Her neck is fine. May have had optical migraines in her early 20s. Her son is now 2 yr. Sleeps usually thru the night. Getting 6-7 hrs sleep. Doing well overall. Daily headaches subsided. 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 Vision is unchanged. One episode of right 5th finger numbness for 1 hr in the past. Sleeping 8 hrs of decent sleep. Intermittent blurring of vision in both eyes. Has a haziness in the vision. Was prescribed glasses. Can have transient sensory sx in thighs and sometimes the hands with burning sensation in the last 2 weeks . Some electrical sensations also. She has anxiety disorder and is concerned that she may lose vision in both eyes. She has had blurring for 3-4 yrs and her eye exam on more than one occasion was found to have no problem with her vision. No further numbness on the left side, arm and leg. No other neurological symptoms. 02/08/17 ED: Abnormal bilateral visual evoked potentials with delay in the anterior optic pathways.. 02/07/17 MRI brain normal. May 2023: MRI Brain normal. Sep 2024 Brain MRI normal. OIL LEASE BUYER shows mild delay in the anterior optic pathway particularly on the left. and borderline on the right. DANG and USER normal. [facility] Medical History Migraine Tension headache Optic neuritis Demyelinating disease IUD strings lost Rh negative state in antepartum period IUD (intrauterine device) in place Encounter for general adult medical examination with abnormal findings Hematuria Hemorrhoids Chest heaviness Family history of esophageal cancer Thyroid disorder screening Cervical cancer screening History of gestational diabetes Headache in Gestational diabetes mellitus (GDM) Well woman exam Adult general medical exam Asthma History of gestational diabetes Anxiety Surgical History Cellulitis History of incision and drainage Hx of wisdom tooth extraction Hx of dilation and curettage Family History Father Family hx-stroke History of esophageal cancer Mother Anxiety Maternal Grandmother Hx of congestive heart failure Hx of diabetes mellitus Maternal Grandfather Colon cancer Hx of diabetes mellitus Paternal Grandfather Cancer Sister Mental health disorder Maternal Aunt Substance use disorder Social History Household Members: Spouse and Children Housing: House Alcohol intake: never Patient Tobacco Use Status: Never used Tobacco e-Cigarette/Vaping Use: Never Used Second Hand Smoke Exposure: No service: No Current occupational status: employed Gender identity: Female Cognitive needs: No Hearing needs: No Vision needs: No Female Reproductive History Menstrual Age of Menarche: 16 Review of Systems Const All systems reviewed & are unremarkable except as noted in HPI and below Denies chills, Denies fatigue, Denies fever(s), Denies frequent falls, Denies weakness, Denies weight gain and Denies weight loss ENT Denies dizziness Card Denies chest pain, Denies leg edema, Denies lightheadedness, Denies palpitations, Denies dyspnea and Denies dyspnea on exertion Resp Denies cough, Denies dyspnea and Denies dyspnea on exertion GI Denies hematochezia Musc Denies abnormal gait, Denies muscle weakness, Denies numbness, Denies radiating pain into limb and Denies tingling Neuro Denies abnormal gait, Denies dizziness, Denies frequent falls, Denies numbness, Denies tingling and Denies weakness Endo Denies fatigue and Denies palpitations Physical Exam Neuro Other: Neurological: Abnormal neurological findings:??none.?Mental Status:??alert and oriented X 3,?Normal attention, orientation, memory and affect.?Cranial Nerves:??Pupils are equal, round and reactive to light. Fundoscopy shows normal disc bilaterally. External occular muscles are intact. Visual elder are full, no ptosis. Face is symmetrical, no facial weakness or droop. Facial sensations are normal. Tongue protrudes in midline. Palate elevates symmetrically. Shoulder shrugging is normal..?Motor Examination:??Normal muscle tone, bulk and strength,?No atrophy or fasciculations,?No drift of the extended upper extremities,?Deep tendon reflexes are 2+?,?Plantars are flexor?.?Straight Leg Raising:??90 degrees.?Sensory Exam:??Normal light touch, temperature, pinprick, vibration and joint-position sensations?,?Rhomberg sign is absent.?Coordination:??no ataxia,?no titubation,?azkeqk-[id number]-totw, twdu-lsao-kagg test and rapid alternating movements were normal.?Gait Exam:??Within normal limits.?Cerebellar Signs:??Oxdbqg-xl-ehqo and lzlx-mw-tkmc is normal,?no dysdiadochokinesia?.?Extrapyramidal System:??No tremor, rigidity with normal facial expressions,?No bradykinesia, no bradyphrenia. Normal arm swing and posture. No propulsion or retropulsion.?Speech:??Normal,?no dysphasia or dysarthria..? Mini Mental Status Exam: Level of Consciousness:??Alert.?Orientation:??Knows correct year, month, date, day and season,?Knows correct city, county and state. Knows correct location and floor.?Registration:??Able to register 3 objects.?Attention:??Serial 7's perfor med accurately.?Recall:??Able to recall 3 out of 3 objects.?Language:??Normal spontaneous speech, fluency, repetition,naming, comprehension, reading and writing.?Total Score:??30/30.? General Examination: GENERAL APPEARANCE:??normal,?in no acute distress.?HEAD:??normocephalic,?atraumatic.?EYES:??sclera non- icteric,?conjunctiva clear.?EARS:??auditory canal clear,?tympanic membrane intact, clear.?NOSE:??no lesions.?ORAL CAVITY:??gums normal,?mucosa moist,?no lesions.?THROAT:??clear.?NECK/THYROID:??no cervical lymphadenopathy,?thyroid normal,?neck supple, full range of motion,?no carotid bruit.?SKIN:??no rashes,?no significant birthmarks.?HEART:??S1, S2 normal,?no murmurs.?LUNGS:??clear anteriorly and posteriorly.?CHEST:??no gross rib deformity,?clear to auscultation.?BACK:??normal exam of spine.?EXTREMITIES:??no edema.?PERIPHERAL PULSES:??normal.?PSYCH:??alert, oriented,?cognitive function intact,?cooperative with exam.? Assessment & Plan Assessment & Plan (1) Optic neuritis: Comment: Sep 2024 Brain MRI normal. Code(s): H46.9 - Unspecified optic neuritis Category: Medical (2) Tension headache: Code(s): G44.209 - Tension-type headache, unspecified, not intractable Category: Medical (3) Demyelinating disease: Code(s): G37.9 - Demyelinating disease of central nervous system, unspecified Category: Medical Plan reassurance. Observation, continue sertraline Coding Level of Care Code Est Pt Level 4 (48833) Diagnoses Optic neuritis H46.9 Tension headache G44.209 Demyelinating disease G37.9
--- OUTSIDE RECORDS SUMMARY | 2025-01-07 19:22 | XMS_ITS | Clinical Summary ---
Author Organization [facility] ity Address [address] [place] [address] Care Team Providers Care Infection Preventionist Name Role Phone Elicia Yates MD Primary Care Provider [phone]- [phone] Social History Tobacco Use Types Packs/Day Years [...] RESULTING AGENCY - 05/11/2017 9:49 AM EDT [id number] THINPREP PAP, IMAGED: NEGATIVE FOR SQUAMOUS INTRAEPITHELIAL [...] Recently Relevant to Health Maintenance Care Teams Infection Preventionist Relationship Specialty Start Date End Date Elicia Yates MD PCP - General Internal Medicine 03/07/17
== END 2025-01-07 16:14 | disposition home or self-care (01) ==
LOC: HO.HSM 15:55
PROVIDERS: PCP Internal Medicine; Visit Provider Psychiatry & Neurology Neurology
DX: H46.9 Unspecified optic neuritis (principal); G44.209 Tension-type headache, unspecified, not intractable; G37.9 Demyelinating disease of central nervous system, unspecified
CPT/HCPCS: 99214